=== PATIENT | female | born 1985 | race Caucasian/White ===

== ENCOUNTER 2016-11-10 12:25 | Inpatient (IN) | payer OTHER ==
[~2016-11-10] VITALS: Ht 147.3 cm; Wt 59.9 kg
[2016-11-10 14:10] VITALS: BP 119/61; PULSE 88; RESP 20
[2016-11-10 14:31] VITALS: Ht 147.3 cm; Wt 59.9 kg
--- NOTE | 2016-11-10 16:52 | HP ---
Date/Time of Note Date/Time of Note DATE: 11/10/16 TIME: 16:49 Assessment/Plan VTE Prophylaxis VTE Prophylaxis Intervention: SCD's Lines/Catheters IV C[facility]ter Type (from [facility]): Saline Lock Assessment/Plan Chief Complaint/Hosp Course Pelvic pain, elevated CA-125, Pelvic mass Problems: Assessment/Plan Further workup and surgey- see above HPI/ROS Admit Date/Time Admit Date/Time Nov 10, 2016 at 13:52 Hx of Present Illness Hoang Baron M.D. [facility] History and Physical Examination Aida Jessica Date:Nov 10, 2016 :1985 Age: 31 Physicians: Retail Leader Resource Analyst Oncologist Referring MD: History of the Present Illness: A 31 year old female with a gradually increasing pelvic mass. The mass is complex and 12 cm with some ascites and a CA-125 of 250. She notes 1 year increasing girth and pain with intercourse and dysmenorrhea. Medical history/ROS: all other systems unremarkable. Surgical history: no significant abdominal procedures. Medications: gardisil Allergies: No active allergies recorded Family Hx: non-contributary Social HX: non-contributary ROS: as above Colonoscopy Physical Examination General: Alert. HEENT: Pupils are equal, round, reactive to light and accommodation. Neck: Supple with no masses of lymphadenopathy. Breast: Deferred due to recent examination and responsibility of primary care physician. Chest: Clear to auscultation Heart: Normal rhythm with no murmur. Abdomen: Moderately tender, possible ascites nor organomeglay. Pelvic exam: large central mass no cul-de-sac nodularity noted Rectal: confirmatory with pelvic exam. Neurological: Grossly intact Assessment: Pelvic-abdominal mass Plan: Additional HE4, germ cell markers and CT and then determine open vs Scope USO, possible staging , possible TAHBSO with cytoreduction. All risks and benefits of this procedure have been discussed in detail with the patient, as well as alternative treatment strategies and their implications. The patient is aware that there is some possibility of a blood transfusion and its associated risks and benefits. She wishes to proceed and gives her informed consent. Hoang Baron M.D. PMH/Family/Social Social History Smoking Status: Former smoker Exam/Review of Systems Vital Signs Vitals Vital Signs Date Time Temp Pulse Resp B/P Pulse Ox O2 Delivery O2 Flow Rate FiO2 11/10/16 14:10 98.2 88 20 119/61 95 Room Air Medications Medications Current Medications Potassium Chloride/Dextrose/ Sod Cl (D5-1/2ns + KCl 20 Meq) 1,000 ml @ 75 mls/ hr [id number] IV ; Start 11/10/16 at 16:37; Status UNV Ondansetron HCl (Zofran Inj) 4 mg Q6H PRN IV NAUSEA AND/OR VOMITING; Start at 17:00; Status UNV Acetaminophen (Tylenol Tab) 650 mg Q6H PRN PO PAIN LEVEL 1-3 OR FEVER; Start 11/10/16 at 17:00; Status UNV Acetaminophen (Tylenol Supp) 650 mg Q6H PRN [place] PAIN LEVEL 1-3 OR FEVER; Start 11/10/16 at 17:00; Status UNV Oxycodone/ Acetaminophen (Percocet (5/ 325)) 1 tab Q6H PRN PO MODERATE PAIN LEVEL 4-6; Start 11/10/16 at 17:00; Status UNV Morphine Sulfate (morphine) 2 mg Q4H PRN IV SEVERE PAIN LEVEL 7-10; Start at 17:00; Status UNV Docusate Sodium (Colace) 100 mg Q12H PRN PO CONSTIPATION; Start 11/10/16 at 17 :00; Status UNV Bisacodyl (Dulcolax Supp) 10 mg DAILY PRN [place] CONSTIPATION; Start 11/10/16 at 17:00; Status UNV Zolpidem Tartrate (Ambien) 5 mg QHS PRN PO SLEEP; Start 11/10/16 at 17:00; Status UNV Pantoprazole (Protonix Tab) 40 mg DAILY@06 PO ; Start 11/11/16 at 06:00; Status UNV HOANG BARON MD Nov 10, 2016 16:52
[2016-11-10] MEDS ORDERED: ZOLPIDEM 5 MG TAB PO PRN (17:00)
[2016-11-10] MEDS ORDERED: BISACODYL 10 MG SUPP PR PRN (17:00)
[2016-11-10] MEDS ORDERED: DOCUSATE SODIUM 100 MG CAP PO PRN (17:00)
[2016-11-10] MEDS ORDERED: ONDANSETRON 4 MG INJ IV PRN (17:00)
[2016-11-10] MEDS ORDERED: morphine 2 MG INJ IV PRN (17:00)
[2016-11-10] MEDS ORDERED: ACETAMINOPHEN 650 MG SUPP PR PRN (17:00)
[2016-11-10] MEDS ORDERED: NACL 0.9% 3 ML SYG IV SCH (17:00)
[2016-11-10] MEDS ORDERED: ACETAMINOPHEN 325 MG TAB PO PRN (17:00)
[2016-11-10] MEDS: D5W-0.45 NACL + KCL 20 MEQ 1,000 ML IV SCH (17:16)
[2016-11-10 19:12] LABS: BASOPHILS % 0.3 % (0.0-2.0); EOSINOPHILS # 0.1 10^3/ul (0.0-0.5); EOSINOPHILS % 1.2 % (0.0-7.0); HEMATOCRIT 38.4 % (37.0-47.0); HEMOGLOBIN 13.1 g/dl (12.0-16.0); LYMPHOCYTES # 2.1 10^3/ul (0.8-2.9); LYMPHOCYTES % 23.1 % (15.0-51.0); MEAN CORPUSCULAR HEMOGLOBIN 30.5 pg (29.0-33.0); MEAN CORPUSCULAR HGB CONC 34.2 g/dl (32.0-37.0); MEAN CORPUSCULAR VOLUME 89.1 fl (82.0-101.0); MEAN PLATELET VOLUME 8.8 fl (7.4-10.4); MONOCYTE # 0.4 10^3/ul (0.3-0.9); MONOCYTES % 4.2 % (0.0-11.0); NEUTROPHIL # 6.4 10^3/ul (1.6-7.5); NEUTROPHILS % 71.2 % (39.0-77.0); PLATELET COUNT 278 10^3/UL (140-440); RED BLOOD COUNT 4.31 10^6/ul (4.20-5.40); RED CELL DISTRIBUTION WIDTH 12.9 % (11.5-14.5); UNCORRECTED WBC 8.9 10^3/ul (4.8-10.8); WHITE BLOOD COUNT 8.9 10^3/ul (4.8-10.8)
[2016-11-10 19:15] LABS: CONDITION 1
[2016-11-10 19:21] LABS: ALBUMIN 4.2 g/dl (3.3-4.9)
[2016-11-10 19:22] LABS: POTASSIUM 3.6 mmol/L (3.5-5.1)
[2016-11-10 19:23] LABS: INR 1.02; PROTIME 13.4 Sec (12.2-14.2)
[2016-11-10 19:24] LABS: ALBUMIN/GLOBULIN RATIO 1.1; BILIRUBIN,INDIRECT 0.2 mg/dl (0-1.1); BILIRUBIN,TOTAL 0.2 mg/dl (0.2-1.3); CREATININE 0.53 mg/dl (0.44-1.00)
[2016-11-10 19:25] LABS: CALCIUM 8.6 mg/dl (8.4-10.2)
[2016-11-10] MEDS ORDERED: IOHEXOL 300MG/ML 150 ML BTL ONE (19:53)
[2016-11-10] MEDS ORDERED: SOD CHLORIDE 0.9% 100 ML ONE (19:53)
[2016-11-10 20:00] VITALS: BP 116/72; PULSE 94; RESP 18
--- NOTE | 2016-11-10 20:44 | RADRPT ---
PROCEDURE: CT abdomen and pelvis with contrast. CLINICAL INDICATION: Pelvic mass. TECHNIQUE: CT scan of the abdomen and pelvis with contrast was performed after the uneventful intr avenous administration of 90 cc of Omnipaque-300. Coronal and sagittal reformatted images were obtai kate from the axial source images. Images were reviewed on a high-resolution PACS workstation. The to lo exam CTDI equals 9.26 mGy and the total exam DLP equals 486.33 mGy-cm. COMPARISON: None available. FINDINGS: The visualized lung bases are clear. The visualized heart is unremarkable. The liver is normal in size and density with no focal hepatic lesion identified. There is no intra or extra-hepatic biliary ductal dilatation. The gallbladder, spleen, pancreas, and adrenal glands ar e unremarkable. There are no renal masses or hydronephrosis. There is no bowel wall thickening or evidence of obstruction. The appendix is in the right lower deandre drant, and is unremarkable. There is abnormal soft tissue density intermixed with foci of calcification, most pronounced in the lower abdomen and pelvis, with additional scattered areas within the ventral abdomen, consistent wit h peritoneal carcinomatosis. There is a pljkvfxi-xm-nwmzb volume of ascites, likely malignant in na ture. There is no free intraperitoneal air. There is no retroperitoneal adenopathy. There is a 1.5 cm left ovarian corpus luteal cyst. The uterus and adnexa are otherwise unremarkable. The urinary bladder is decompressed, and unremarkable. The aorta is nonaneurysmal. There are no concerning osseous lesio ns. IMPRESSION: 1. Peritoneal carcinomatosis, most pronounced within the lower abdomen and pelvis from an uncertain primary. 2. Ctidtnsf-rz-kcpcp volume of ascites, likely malignant in nature. 3. Benign left ovarian corpus luteal cyst. RPTAT: HLBP .Patrick Funk MD, MD Date Time Electronically viewed and signed by .Patrick Funk MD, MD on 11/10/2016 20:44 .P/
--- NOTE | 2016-11-10 21:37 | HP ---
DATE OF ADMISSION: 11/10/2016 CYTOGENETIC TECHNICIAN: SAMPLE CARD MAKER. CHIEF COMPLAINT: Abdominal pain, abdominal distention. HISTORY OF PRESENT ILLNESS: This is a 31-year-old female with no significant past medical history w ho has been having abdominal discomfort accompanied with abdominal distention and mild pain without any change in her appetite. No nausea, vomiting, diarrhea. No change in the color of stool. No ch bouchra in her menstruation or any other discomfort, who presented to [facility] to having this abdominal distention and bloating. The patient was seen at [facility] wit h a CT of the abdomen and pelvis which showed a large abdominal pelvic solid mass with 10 x 16 x 14 cm. The patient was seen by SAMPLE CARD MAKER and licensed occupational therapy assistant/oncologist at that facility and secondary to in surance purposes the patient has been transferred to [facility]. Prior to transfe r, the patient's condition was discussed by Dr. Baron, SAMPLE CARD MAKER and he accepted the patient as a co nsult. At this time, the patient denies having any chest pain, shortness of breath, nausea, vomitin g, diarrhea. No headache, dizziness, lightheadedness. No change in visual acuity, diplopia, photop hobia. Positive for abdominal discomfort. No abdominal pain. Positive for bloating. No change in the color of stool. No neck pain, no restricted range of motion in upper or lower extremities. No dysuria, hematuria, urgency, incontinence or any other discomfort. PAST MEDICAL AND SURGICAL HISTORY: None. SOCIAL HISTORY: Negative x3 for smoking, alcohol, illicit drugs. FAMILY HISTORY: Positive for history of ovarian cyst. No history of cancer. No history of coronar y artery disease. REVIEW OF SYSTEMS: As above per HPI, otherwise 12 point review of systems has been found to be nega tive. PHYSICAL EXAMINATION: VITAL SIGNS: Temperature 98.2, pulse 88, respirations 20, blood pressure 119/61, satting 95% on tam m air. GENERAL APPEARANCE: The patient is lying in bed comfortably without any acute distress. She is satcy ke, alert, oriented. She is able to answer my questions properly. EYES AND EARS, NOSE, THROAT: Conjunctivae and lids are normal. Pupils are normal. Extraocular nor mal. Hearing grossly normal. Lips are normal. Oral mucosa moist. NECK: Supple. Trachea is midline. No lymphadenopathy. RESPIRATORY: Effort is normal. Clear to auscultate bilaterally. CARDIOVASCULAR: Normal S1, S2. Regular rhythm and rate. No murmur, no bruits, no edema. Peripher al pulses, radial pulses palpable. Cap refill is normal. CHEST: Normal expansion of thorax during inspiration. GASTROINTESTINAL: Abdomen is soft, nontender. Bowel sound is present. Abdomen is mildly distended in the lower region. No guarding, no rebound. GENITOURINARY: Deferred. MUSCULOSKELETAL: Upper and lower extremities within normal limits. Full range of motion, strength 5/5 in both upper and lower extremities. NEUROLOGIC: Cranial nerves II-XII are grossly intact. PSYCHIATRIC: Normal judgment and insight. Alert and oriented x3. Mood and affect is normal. LABORATORY WORK AND IMAGING: CT abdomen and pelvis showed a large abdominopelvic mass 10 x 16 x 14 cm, numerous small calcifications are seen within the mass. Sodium 141, potassium 3.9, chloride 105 , bicarb 27, BUN 9, creatinine 0.47, glucose 112. LFTs all within normal limits. CA 19-9 26, CA-12 5 250, CA-15 ____, ____ 0.5. ASSESSMENT AND PLAN: 1. Large ovarian mass. SAMPLE CARD MAKER has been consulted. We will obtain another CT of abdomen and pelvis with contrast as per ____ recommendation. Follow up HCG, ovarian cancer monitoring, LDH. Follow u p SAMPLE CARD MAKER recommendations. 2. Deep venous thrombosis prophylaxis, on SCD. 3. Gastrointestinal prophylaxis, on Protonix. We will continue to monitor the patient closely. Further recommendation, management and treatment a s per clinical course. Total amount of time was spent for evaluation of the patient and admission workup 45 minutes. Dictated By: MORALES PEREIRA MD PN/NTS Conf#: [id number] DID#: [id number] CC: MORALES PEREIRA MD; MATT BARON MD;*EndCC*
[2016-11-10] MEDS: OXYCODONE/ACETAMINOPHEN (5/325) TAB PO PRN (23:27)
[2016-11-11] MEDS: PANTOPRAZOLE (EC) 40 MG TAB PO SCH (05:30)
[2016-11-11 05:57] LABS: BASOPHILS % 0.5 % (0.0-2.0); EOSINOPHILS # 0.2 10^3/ul (0.0-0.5); EOSINOPHILS % 2.4 % (0.0-7.0); HEMATOCRIT 34.2 % (37.0-47.0); HEMOGLOBIN 11.9 g/dl (12.0-16.0); LYMPHOCYTES # 2.5 10^3/ul (0.8-2.9); LYMPHOCYTES % 32.1 % (15.0-51.0); MEAN CORPUSCULAR HGB CONC 34.7 g/dl (32.0-37.0); MEAN CORPUSCULAR VOLUME 89.5 fl (82.0-101.0); MONOCYTE # 0.5 10^3/ul (0.3-0.9); MONOCYTES % 6.1 % (0.0-11.0); NEUTROPHIL # 4.5 10^3/ul (1.6-7.5); NEUTROPHILS % 58.9 % (39.0-77.0); PLATELET COUNT 233 10^3/UL (140-440); RED BLOOD COUNT 3.82 10^6/ul (4.20-5.40); RED CELL DISTRIBUTION WIDTH 12.9 % (11.5-14.5); UNCORRECTED WBC 7.7 10^3/ul (4.8-10.8); WHITE BLOOD COUNT 7.7 10^3/ul (4.8-10.8)
[2016-11-11] MEDS: D5W-0.45 NACL + KCL 20 MEQ 1,000 ML IV SCH ×3 (05:57→19:04)
[2016-11-11 06:01] LABS: ALBUMIN 3.6 g/dl (3.3-4.9); POTASSIUM 4.1 mmol/L (3.5-5.1)
[2016-11-11 06:03] LABS: CREATININE 0.53 mg/dl (0.44-1.00)
[2016-11-11 06:04] LABS: ALBUMIN/GLOBULIN RATIO 1.05; BILIRUBIN,INDIRECT 0.2 mg/dl (0-1.1); BILIRUBIN,TOTAL 0.2 mg/dl (0.2-1.3); CALCIUM 8.6 mg/dl (8.4-10.2)
[2016-11-11 06:05] LABS: MAGNESIUM 2.2 mg/dl (1.7-2.5)
[2016-11-11 06:53] LABS: CONDITION 1
[2016-11-11 08:00] VITALS: BP 102/57; PULSE 77; RESP 18
--- NOTE | 2016-11-11 09:43 | PN ---
Date/Time of Note Date/Time of Note DATE: 11/11/16 TIME: 09:39 Assessment/Plan VTE Prophylaxis VTE Prophylaxis Intervention: SCD's Lines/Catheters IV C[facility]ter Type (from [facility] Saline Lock Urinary Cath still in place: No Assessment/Plan Chief Complaint/Hosp Course ASSESSMENT AND PLAN: 1. Large ovarian mass. BENCH EXAMINER has been consulted. Follow up BENCH EXAMINER recommendations. 2. Peritoneal carcinomatosis, most pronounced within the lower abdomen and pelvis from an uncertain primary with Vpyzymcp-nv-roesi volume of ascites, likely malignant in nature. PANEL GLUER surgeon has been consulted, plan for surgical intervention this upcoming Sunday or Sunday depending on OR availability Will consult bath attendant oncologist postoperatively when tissue is available 3. Deep venous thrombosis prophylaxis, on SCD. 4. Gastrointestinal prophylaxis, on Protonix. We will continue to monitor the patient closely. Further recommendation, management and treatment as per clinical course. Problems: Subjective 24 Hr Interval Summary Free Text/Dictation Patient complains of having abdominal discomfort Had trouble sleeping last night No nausea vomiting or diarrhea Exam/Review of Systems Vital Signs Vitals Vital Signs Date Time Temp Pulse Resp B/P Pulse Ox O2 Delivery O2 Flow Rate FiO2 11/11/16 08:00 98.0 77 18 102/57 98 Room Air Intake and Output 11/10/16 11/10/16 11/11/16 15:00 23:00 07:00 Intake Total 1200 ml 340 ml Output Total 500 ml Balance 1200 ml -160 ml Exam General: The patient is well-developed, Not in acute distress. HEENT: Atraumatic, normocephalic. The pupils are equal and round . Neck: Supple with full range of motion. Chest: Normal expansion of the thorax during inspiration Lungs: Clear to auscultation bilaterally Heart: Normal S1-S2, Regular rhythm and rate. Abdomen: Soft , nontender, nondistended , bowel sounds are present. Extremities: Normal to inspection, no edema no cyanosis Neurologic: Normal mental status,The patient is awake, alert and oriented . Results Result Diagram: 11/11/16 0458 11/11/16 0458 Results 24 hrs Laboratory Tests Test 11/10/16 16:30 11/10/16 18:45 11/11/16 04:58 Alpha Fetoprotein 2.05 Serum HCG, Qualitative NEGATIVE Alanine Aminotransferase (ALT/SGPT) 47 52 Albumin 4.2 3.6 Albumin/Globulin Ratio 1.10 1.05 Alkaline Phosphatase 66 67 Anion Gap 18 H 17 H Aspartate Amino Transf (AST/SGOT) 39 33 Basophils # 0.0 0.0 Basophils % 0.3 0.5 Blood Urea Nitrogen 15 17 Calcium Level 8.6 8.6 Carbon Dioxide Level 27 26 Chloride Level 102 105 Creatinine 0.53 0.53 Direct Bilirubin 0.00 0.00 Eosinophils # 0.1 0.2 Eosinophils % 1.2 2.4 Globulin 3.80 H 3.40 H Glucose Level 90 92 Hematocrit 38.4 34.2 L Hemoglobin 13.1 11.9 L INR International Normalized Ratio 1.02 Indirect Bilirubin 0.2 0.2 Lactate Dehydrogenase 495 Lymphocytes # 2.1 2.5 Lymphocytes % 23.1 32.1 Mean Corpuscular Hemoglobin 30.5 31.0 Mean Corpuscular Hemoglobin Concent 34.2 34.7 Mean Corpuscular Volume 89.1 89.5 Mean Platelet Volume 8.8 9.0 Monocytes # 0.4 0.5 Monocytes % 4.2 6.1 Neutrophils # 6.4 4.5 Neutrophils % 71.2 58.9 Nucleated Red Blood Cells # 0.0 0.0 Nucleated Red Blood Cells % 0.0 0.0 Platelet Count 278 233 Potassium Level 3.6 4.1 Prothrombin Time 13.4 Prothrombin Time Ratio 1.0 Red Blood Count 4.31 3.82 L Red Cell Distribution Width 12.9 12.9 Sodium Level 143 144 Total Bilirubin 0.2 0.2 Total Protein 8.0 7.0 # White Blood Count 8.9 7.7 Magnesium Level 2.2 Medications Medications Current Medications Potassium Chloride/Dextrose/ Sod Cl (D5-1/2ns + KCl 20 Meq) 1,000 ml @ 75 mls/ hr [id number] IV Last administered on 11/10/16at 17:16; Admin Dose 75 MLS/HR; Start 11/10/16 at 16:37 Ondansetron HCl (Zofran Inj) 4 mg Q6H PRN IV NAUSEA AND/OR VOMITING; Start at 17:00 Acetaminophen (Tylenol Tab) 650 mg Q6H PRN PO PAIN LEVEL 1-3 OR FEVER; Start 11/10/16 at 17:00 Acetaminophen (Tylenol Supp) 650 mg Q6H PRN [place] PAIN LEVEL 1-3 OR FEVER; Start 11/10/16 at 17:00 Oxycodone/ Acetaminophen (Percocet (5/ 325)) 1 tab Q6H PRN PO MODERATE PAIN LEVEL 4-6 Last administered on 11/10/16at 23:27; Admin Dose 1 TAB; Start at 17:00 Morphine Sulfate (morphine) 2 mg Q4H PRN IV SEVERE PAIN LEVEL 7-10; Start at 17:00 Docusate Sodium (Colace) 100 mg Q12H PRN PO CONSTIPATION; Start 11/10/16 at 17 :00 Bisacodyl (Dulcolax Supp) 10 mg DAILY PRN [place] CONSTIPATION; Start 11/10/16 at 17:00 Zolpidem Tartrate (Ambien) 5 mg QHS PRN PO SLEEP; Start 11/10/16 at 17:00 Pantoprazole (Protonix Tab) 40 mg DAILY@06 PO Last administered on 11/11/16at 05:30; Admin Dose 40 MG; Start 11/11/16 at 06:00 MORALES PEREIRA MD Nov 11, 2016 09:43
--- NOTE | 2016-11-11 12:43 | PN ---
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 Given that 20 % require adjacent colon resection with en-bloc low anastomosis will proceed with bowel prep and explained why. Under remote chance that issue is only endometriosis will only do USO and under low probability that stage I or IC ovarian cancer after being informed of all options with risks and benefits patient elects hysterectomy with BSO rather than fertility preservation. If IIIC disease and miliary disease intraperitoneal chemotherapy is the standard of practice; discussed chemotherapy and will further elaborate tomorrow. Will begin bowel prep today and anticipate surgery Sunday. Will order doppler as there is a documented risk of subclinical DVT. Subjective 24 Hr Interval Summary Free Text/Dictation S- Slightly increased pain, no N/V O- resp- clear cvs- NSR abd- Mod distension and some pain ext NT no edema A- probable ovarian vs peritoneal Cancer per CT with metastatic disease P- Discusses treatment options with risks and benefits in detail. Given that 20 % require adjacent colon resection with en-bloc low anastomosis will proceed with bowel prep and explained why. Under remote chance that issue is only endometriosis will only do USO and under low probability that stage I or IC ovarian cancer after being informed of all options with risks and benefits patient elects hysterectomy with BSO rather than fertility preservation. If IIIC disease and miliary disease intraperitoneal chemotherapy is the standard of practice; discussed chemotherapy and will further elaborate tomorrow. Will begin bowel prep today and anticipate surgery Sunday. Will order doppler as there is a documented risk of subclinical DVT. Exam/Review of Systems Vital Signs Vitals Vital Signs Date Time Temp Pulse Resp B/P Pulse Ox O2 Delivery O2 Flow Rate FiO2 11/11/16 08:00 98.0 77 18 102/57 98 Room Air Intake and Output 11/10/16 11/10/16 11/11/16 15:00 23:00 07:00 Intake Total 1200 ml 340 ml Output Total 500 ml Balance 1200 ml -160 ml Results Result Diagram: 11/11/16 0458 11/11/16 0458 Results 24 hrs Laboratory Tests Test 11/10/16 16:30 11/10/16 18:45 11/11/16 04:58 Alpha Fetoprotein 2.05 Serum HCG, Qualitative NEGATIVE Alanine Aminotransferase (ALT/SGPT) 47 52 Albumin 4.2 3.6 Albumin/Globulin Ratio 1.10 1.05 Alkaline Phosphatase 66 67 Anion Gap 18 H 17 H Aspartate Amino Transf (AST/SGOT) 39 33 Basophils # 0.0 0.0 Basophils % 0.3 0.5 Blood Urea Nitrogen 15 17 Calcium Level 8.6 8.6 Carbon Dioxide Level 27 26 Chloride Level 102 105 Creatinine 0.53 0.53 Direct Bilirubin 0.00 0.00 Eosinophils # 0.1 0.2 Eosinophils % 1.2 2.4 Globulin 3.80 H 3.40 H Glucose Level 90 92 Hematocrit 38.4 34.2 L Hemoglobin 13.1 11.9 L INR International Normalized Ratio 1.02 Indirect Bilirubin 0.2 0.2 Lactate Dehydrogenase 495 Lymphocytes # 2.1 2.5 Lymphocytes % 23.1 32.1 Mean Corpuscular Hemoglobin 30.5 31.0 Mean Corpuscular Hemoglobin Concent 34.2 34.7 Mean Corpuscular Volume 89.1 89.5 Mean Platelet Volume 8.8 9.0 Monocytes # 0.4 0.5 Monocytes % 4.2 6.1 Neutrophils # 6.4 4.5 Neutrophils % 71.2 58.9 Nucleated Red Blood Cells # 0.0 0.0 Nucleated Red Blood Cells % 0.0 0.0 Platelet Count 278 233 Potassium Level 3.6 4.1 Prothrombin Time 13.4 Prothrombin Time Ratio 1.0 Red Blood Count 4.31 3.82 L Red Cell Distribution Width 12.9 12.9 Sodium Level 143 144 Total Bilirubin 0.2 0.2 Total Protein 8.0 7.0 # White Blood Count 8.9 7.7 Magnesium Level 2.2 Medications Medications Current Medications Potassium Chloride/Dextrose/ Sod Cl (D5-1/2ns + KCl 20 Meq) 1,000 ml @ 75 mls/ hr [id number] IV Last administered on 11/11/16at 10:23; Admin Dose 75 MLS/HR; Start 11/10/16 at 16:37 Ondansetron HCl (Zofran Inj) 4 mg Q6H PRN IV NAUSEA AND/OR VOMITING; Start at 17:00 Acetaminophen (Tylenol Tab) 650 mg Q6H PRN PO PAIN LEVEL 1-3 OR FEVER; Start 11/10/16 at 17:00 Acetaminophen (Tylenol Supp) 650 mg Q6H PRN [place] PAIN LEVEL 1-3 OR FEVER; Start 11/10/16 at 17:00 Oxycodone/ Acetaminophen (Percocet (5/ 325)) 1 tab Q6H PRN PO MODERATE PAIN LEVEL 4-6 Last administered on 11/10/16at 23:27; Admin Dose 1 TAB; Start at 17:00 Morphine Sulfate (morphine) 2 mg Q4H PRN IV SEVERE PAIN LEVEL 7-10; Start at 17:00 Docusate Sodium (Colace) 100 mg Q12H PRN PO CONSTIPATION; Start 11/10/16 at 17 :00 Bisacodyl (Dulcolax Supp) 10 mg DAILY PRN [place] CONSTIPATION; Start 11/10/16 at 17:00 Zolpidem Tartrate (Ambien) 5 mg QHS PRN PO SLEEP; Start 11/10/16 at 17:00 Pantoprazole (Protonix Tab) 40 mg DAILY@06 PO Last administered on 11/11/16at 05:30; Admin Dose 40 MG; Start 11/11/16 at 06:00 MATT BARON MD Nov 11, 2016 12:43
[2016-11-11] MEDS ORDERED: PEG/ELECTROLYTES 4L BTL PO SCH (14:00)
--- NOTE | 2016-11-11 16:15 | RADRPT ---
PROCEDURE: US Lower extremity Venous. CLINICAL INDICATION: Lower extremity pain and swelling TECHNIQUE: Multiple sonographic images of the bilateral lower extremity deep venous system was obt ained utilizing grayscale, color-flow, compressive sonography and doppler imaging with augmentation. The images were reviewed on a PACS workstation. COMPARISON: None. FINDINGS: There is normal compressibility and flow within the bilateral common femoral, superficial femoral an d popliteal veins. Flow is seen in the posterior tibial and peroneal veins. IMPRESSION: No sonographic evidence for deep venous thrombosis. RPTAT: AA .Nathaniel Tai MD, MD Date Time Electronically viewed and signed by .Nathaniel Tai MD, MD on 11/11/2016 16:15 .P/
[2016-11-11 20:00] VITALS: BP 106/56; PULSE 84; RESP 18
[2016-11-12 05:49] LABS: BASOPHILS % 0.5 % (0.0-2.0); EOSINOPHILS # 0.1 10^3/ul (0.0-0.5); EOSINOPHILS % 1.7 % (0.0-7.0); HEMATOCRIT 34.9 % (37.0-47.0); HEMOGLOBIN 12.1 g/dl (12.0-16.0); LYMPHOCYTES # 2.3 10^3/ul (0.8-2.9); LYMPHOCYTES % 30.8 % (15.0-51.0); MEAN CORPUSCULAR HEMOGLOBIN 31.1 pg (29.0-33.0); MEAN CORPUSCULAR HGB CONC 34.7 g/dl (32.0-37.0); MEAN CORPUSCULAR VOLUME 89.8 fl (82.0-101.0); MEAN PLATELET VOLUME 9.2 fl (7.4-10.4); MONOCYTE # 0.4 10^3/ul (0.3-0.9); MONOCYTES % 5.4 % (0.0-11.0); NEUTROPHIL # 4.5 10^3/ul (1.6-7.5); NEUTROPHILS % 61.6 % (39.0-77.0); PLATELET COUNT 236 10^3/UL (140-440); RED BLOOD COUNT 3.89 10^6/ul (4.20-5.40); RED CELL DISTRIBUTION WIDTH 12.8 % (11.5-14.5); UNCORRECTED WBC 7.3 10^3/ul (4.8-10.8); WHITE BLOOD COUNT 7.3 10^3/ul (4.8-10.8)
[2016-11-12 05:51] LABS: POTASSIUM 3.9 mmol/L (3.5-5.1)
[2016-11-12 05:54] LABS: CALCIUM 8.7 mg/dl (8.4-10.2); CREATININE 0.48 mg/dl (0.44-1.00)
[2016-11-12 05:59] LABS: CONDITION 1
[2016-11-12] MEDS: PANTOPRAZOLE (EC) 40 MG TAB PO SCH (06:46)
[2016-11-12 08:00] VITALS: BP 101/56; PULSE 80
[2016-11-12] MEDS: D5W-0.45 NACL + KCL 20 MEQ 1,000 ML IV SCH ×2 (08:33→21:57)
--- NOTE | 2016-11-12 10:46 | PN ---
Date/Time of Note Date/Time of Note DATE: 11/12/16 TIME: 10:45 Assessment/Plan VTE Prophylaxis VTE Prophylaxis Intervention: SCD's Lines/Catheters IV [facility]from [facility] Saline Lock Urinary Cath still in place: No Assessment/Plan Chief Complaint/Hosp Course ASSESSMENT AND PLAN: 1. Large ovarian mass. SPEED BELT SANDER TENDER has been consulted. Follow up SPEED BELT SANDER TENDER recommendations. 2. Peritoneal carcinomatosis, most pronounced within the lower abdomen and pelvis from an uncertain primary with [id number] volume of ascites, likely malignant in nature. IT SALES REPRESENTATIVE surgeon has been consulted, plan for surgical intervention this upcoming Sunday or Sunday depending on OR availability Will consult lining machine tender oncologist postoperatively when tissue is available 3. Deep venous thrombosis prophylaxis, on SCD. 4. Gastrointestinal prophylaxis, on Protonix. We will continue to monitor the patient closely. Further recommendation, management and treatment as per clinical course. Problems: Subjective 24 Hr Interval Summary Free Text/Dictation Patient denies of any chest pain or shortness of breath Minimal abdominal discomfort Positive bowel movement Exam/Review of Systems Vital Signs Vitals Vital Signs Date Time Temp Pulse Resp B/P Pulse Ox O2 Delivery O2 Flow Rate FiO2 11/12/16 08:00 98.7 80 101/56 98 Room Air 11/11/16 20:00 18 Intake and Output 11/11/16 11/11/16 11/12/16 15:00 23:00 07:00 Intake Total 1000 ml 920 ml Balance 1000 ml 920 ml Exam General: The patient is well-developed, Not in acute distress. HEENT: Atraumatic, normocephalic. The pupils are equal and round . Neck: Supple with full range of motion. Chest: Normal expansion of the thorax during inspiration Lungs: Clear to auscultation bilaterally Heart: Normal S1-S2, Regular rhythm and rate. Abdomen: Soft , nontender, nondistended , bowel sounds are present. Extremities: Normal to inspection, no edema no cyanosis Neurologic: Normal mental status,The patient is awake, alert and oriented . Results Result Diagram: 11/12/16 0430 11/12/16 0430 Results 24 hrs Laboratory Tests Test 11/12/16 03:30 11/12/16 04:30 Stool Occult Blood NEGATIVE Anion Gap 16 Basophils # 0.0 Basophils % 0.5 Blood Urea Nitrogen 8 # Calcium Level 8.7 Carbon Dioxide Level 27 Chloride Level 105 Creatinine 0.48 Eosinophils # 0.1 Eosinophils % 1.7 Glucose Level 83 Hematocrit 34.9 L Hemoglobin 12.1 Lymphocytes # 2.3 Lymphocytes % 30.8 Mean Corpuscular Hemoglobin 31.1 Mean Corpuscular Hemoglobin Concent 34.7 Mean Corpuscular Volume 89.8 Mean Platelet Volume 9.2 Monocytes # 0.4 Monocytes % 5.4 Neutrophils # 4.5 Neutrophils % 61.6 Nucleated Red Blood Cells # 0.0 Nucleated Red Blood Cells % 0.0 Platelet Count 236 Potassium Level 3.9 Red Blood Count 3.89 L Red Cell Distribution Width 12.8 Sodium Level 144 White Blood Count 7.3 Medications Medications Current Medications Potassium Chloride/Dextrose/ Sod Cl (D5-1/2ns + KCl 20 Meq) 1,000 ml @ 75 mls/ hr [id number] IV Last administered on 11/11/16at 10:23; Admin Dose 75 MLS/HR; Start 11/10/16 at 16:37 Ondansetron HCl (Zofran Inj) 4 mg Q6H PRN IV NAUSEA AND/OR VOMITING; Start at 17:00 Acetaminophen (Tylenol Tab) 650 mg Q6H PRN PO PAIN LEVEL 1-3 OR FEVER; Start 11/10/16 at 17:00 Acetaminophen (Tylenol Supp) 650 mg Q6H PRN IN PAIN LEVEL 1-3 OR FEVER; Start 11/10/16 at 17:00 Oxycodone/ Acetaminophen (Percocet (5/ 325)) 1 tab Q6H PRN PO MODERATE PAIN LEVEL 4-6 Last administered on 11/10/16at 23:27; Admin Dose 1 TAB; Start at 17:00 Morphine Sulfate (morphine) 2 mg Q4H PRN IV SEVERE PAIN LEVEL 7-10; Start at 17:00 Docusate Sodium (Colace) 100 mg Q12H PRN PO CONSTIPATION; Start 11/10/16 at 17 :00 Bisacodyl (Dulcolax Supp) 10 mg DAILY PRN IN CONSTIPATION; Start 11/10/16 at 17:00 Zolpidem Tartrate (Ambien) 5 mg QHS PRN PO SLEEP; Start 11/10/16 at 17:00 Pantoprazole (Protonix Tab) 40 mg DAILY@06 PO Last administered on 11/12/16at 06:46; Admin Dose 40 MG; Start 11/11/16 at 06:00 MORALES PEREIRA MD Nov 12, 2016 10:45
--- NOTE | 2016-11-12 11:42 | RADRPT ---
PROCEDURE: XR Chest. CLINICAL INDICATION: Preoperative. Abdomen pain. TECHNIQUE: Single frontal view. COMPARISON: None. FINDINGS: The lungs are clear. The heart size is normal. There is no pleural effusion. There is no pneumothorax. IMPRESSION: 1. Normal chest radiograph. RPTAT: QQ .Omar Austin MD, MD Date Time Electronically viewed and signed by .Omar Austin MD, on 11/12/2016 11:41 .R/
[2016-11-12 12:16] LABS: INR 1.06; PROTIME 13.8 Sec (12.2-14.2); PT RATIO 1.1
[2016-11-12 12:17] LABS: PARTIAL THROMBOPLASTIN TIME 30.2 Sec (25.0-35.0)
[2016-11-12] MEDS ORDERED: PEG/ELECTROLYTES 4L BTL PO ONE (14:00)
--- NOTE | 2016-11-12 18:47 | PN ---
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 Repeat discussion and i clinically stage I will do USO and staging as she decided she wishes fertility preservation if possible. Family present. Will continue bowel prep today and anticipate surgery Sunday. 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 Repeat discussion and i clinically stage I will do USO and staging as she decided she wishes fertility preservation if possible. Family present. Will continue bowel prep today and anticipate surgery Sunday. Exam/Review of Systems Vital Signs Vitals Vital Signs Date Time Temp Pulse Resp B/P Pulse Ox O2 Delivery O2 Flow Rate FiO2 11/12/16 08:00 98.7 80 101/56 98 Room Air 11/11/16 20:00 18 Intake and Output 11/11/16 11/11/16 11/12/16 15:00 23:00 07:00 Intake Total 1000 ml 920 ml Balance 1000 ml 920 ml Results Result Diagram: 11/12/16 0430 11/12/16 0430 Results 24 hrs Laboratory Tests Test 11/12/16 03:30 11/12/16 04:30 11/12/16 11:30 Stool Occult Blood NEGATIVE Anion Gap 16 Basophils # 0.0 Basophils % 0.5 Blood Urea Nitrogen 8 # Calcium Level 8.7 Carbon Dioxide Level 27 Chloride Level 105 Creatinine 0.48 Eosinophils # 0.1 Eosinophils % 1.7 Glucose Level 83 Hematocrit 34.9 L Hemoglobin 12.1 Lymphocytes # 2.3 Lymphocytes % 30.8 Mean Corpuscular Hemoglobin 31.1 Mean Corpuscular Hemoglobin Concent 34.7 Mean Corpuscular Volume 89.8 Mean Platelet Volume 9.2 Monocytes # 0.4 Monocytes % 5.4 Neutrophils # 4.5 Neutrophils % 61.6 Nucleated Red Blood Cells # 0.0 Nucleated Red Blood Cells % 0.0 Platelet Count 236 Potassium Level 3.9 Red Blood Count 3.89 L Red Cell Distribution Width 12.8 Sodium Level 144 White Blood Count 7.3 Activated Partial Thromboplast Time 30.2 INR International Normalized Ratio 1.06 Prothrombin Time 13.8 Prothrombin Time Ratio 1.1 Medications Medications Current Medications Potassium Chloride/Dextrose/ Sod Cl (D5-1/2ns + KCl 20 Meq) 1,000 ml @ 75 mls/ hr [id number] IV Last administered on 11/11/16at 10:23; Admin Dose 75 MLS/HR; Start 11/10/16 at 16:37 Ondansetron HCl (Zofran Inj) 4 mg Q6H PRN IV NAUSEA AND/OR VOMITING; Start at 17:00 Acetaminophen (Tylenol Tab) 650 mg Q6H PRN PO PAIN LEVEL 1-3 OR FEVER; Start 11/10/16 at 17:00 Acetaminophen (Tylenol Supp) 650 mg Q6H PRN [place] PAIN LEVEL 1-3 OR FEVER; Start 11/10/16 at 17:00 Oxycodone/ Acetaminophen (Percocet (5/ 325)) 1 tab Q6H PRN PO MODERATE PAIN LEVEL 4-6 Last administered on 11/10/16at 23:27; Admin Dose 1 TAB; Start at 17:00 Morphine Sulfate (morphine) 2 mg Q4H PRN IV SEVERE PAIN LEVEL 7-10; Start at 17:00 Docusate Sodium (Colace) 100 mg Q12H PRN PO CONSTIPATION; Start 11/10/16 at 17 :00 Bisacodyl (Dulcolax Supp) 10 mg DAILY PRN [place] CONSTIPATION; Start 11/10/16 at 17:00 Zolpidem Tartrate (Ambien) 5 mg QHS PRN PO SLEEP; Start 11/10/16 at 17:00 Pantoprazole (Protonix Tab) 40 mg DAILY@06 PO Last administered on 11/12/16at 06:46; Admin Dose 40 MG; Start 11/11/16 at 06:00 MATT BARON MD Nov 12, 2016 18:47
[2016-11-12] MEDS: OXYCODONE/ACETAMINOPHEN (5/325) TAB PO PRN (19:52)
[2016-11-12 20:00] VITALS: BP 105/64; PULSE 98; RESP 18
[2016-11-12] MEDS: CEFAZOLIN 1 GM/50 ML (PMX) 50 ML IVPB SCH (21:50)
[2016-11-12] MEDS: metroNIDAZOLE 500 MG/NS (PMX) 100 ML IVPB SCH (22:37)
[2016-11-13] VITALS (22 sets, daily range): BP systolic 92–119; BP diastolic 45–75; PULSE 96–110; RESP 16–24
[2016-11-13] MEDS: PANTOPRAZOLE (EC) 40 MG TAB PO SCH (05:17)
[2016-11-13 05:27] LABS: BASOPHILS % 0.5 % (0.0-2.0); CONDITION 1; EOSINOPHILS # 0.1 10^3/ul (0.0-0.5); EOSINOPHILS % 1.2 % (0.0-7.0); HEMATOCRIT 32.7 % (37.0-47.0); HEMOGLOBIN 11.4 g/dl (12.0-16.0); LYMPHOCYTES # 1.5 10^3/ul (0.8-2.9); LYMPHOCYTES % 23.9 % (15.0-51.0); MEAN CORPUSCULAR HEMOGLOBIN 31.1 pg (29.0-33.0); MEAN CORPUSCULAR HGB CONC 34.9 g/dl (32.0-37.0); MEAN CORPUSCULAR VOLUME 89.2 fl (82.0-101.0); MEAN PLATELET VOLUME 8.9 fl (7.4-10.4); MONOCYTE # 0.3 10^3/ul (0.3-0.9); MONOCYTES % 5.2 % (0.0-11.0); NEUTROPHIL # 4.5 10^3/ul (1.6-7.5); NEUTROPHILS % 69.2 % (39.0-77.0); PLATELET COUNT 217 10^3/UL (140-440); RED BLOOD COUNT 3.66 10^6/ul (4.20-5.40); UNCORRECTED WBC 6.4 10^3/ul (4.8-10.8); WHITE BLOOD COUNT 6.4 10^3/ul (4.8-10.8)
[2016-11-13 05:33] LABS: ALBUMIN 3.7 g/dl (3.3-4.9)
[2016-11-13 05:34] LABS: POTASSIUM 3.8 mmol/L (3.5-5.1)
[2016-11-13 05:36] LABS: BILIRUBIN,INDIRECT 0.3 mg/dl (0-1.1); BILIRUBIN,TOTAL 0.3 mg/dl (0.2-1.3); CREATININE 0.45 mg/dl (0.44-1.00); TOTAL PROTEIN 7.1 g/dl (6.1-8.1)
[2016-11-13 05:37] LABS: CALCIUM 8.6 mg/dl (8.4-10.2); MAGNESIUM 2.1 mg/dl (1.7-2.5)
[2016-11-13] MEDS: CEFAZOLIN 1 GM/50 ML (PMX) 50 ML IVPB SCH ×3 (05:47→21:58)
[2016-11-13] MEDS: metroNIDAZOLE 500 MG/NS (PMX) 100 ML IVPB SCH ×3 (06:17→21:56)
[2016-11-13] MEDS ORDERED: CEFAZOLIN 1 GM INJ ONE (07:00)
[2016-11-13] MEDS ORDERED: DIPHENHYDRAMINE 50 MG INJ IV PRN (08:00)
[2016-11-13] MEDS ORDERED: EPHEDrine SULFATE 50 MG/5 ML SYG IV PRN (08:00)
[2016-11-13] MEDS ORDERED: MEPERIDINE 25 MG INJ IV PRN (08:00)
[2016-11-13] MEDS ORDERED: KETOROLAC 30 MG INJ IV ONE (08:00)
[2016-11-13] MEDS ORDERED: hydrALAzine 20 MG INJ IV PRN (08:00)
[2016-11-13] MEDS ORDERED: HYDROmorphONE (0.2 MG/ML) 10ML SYG IV PRN ×2 (08:00)
[2016-11-13] MEDS ORDERED: MIDAZOLAM 1 MG/ML 2 ML INJ IV PRN (08:00)
[2016-11-13] MEDS ORDERED: ONDANSETRON 4 MG INJ IV PRN (08:00)
[2016-11-13] MEDS ORDERED: PROCHLORPERAZINE 10 MG INJ IV PRN (08:00)
[2016-11-13] MEDS ORDERED: ROCURONIUM 50 MG INJ ONE ×2 (08:16→10:18)
[2016-11-13] MEDS ORDERED: EPHEDrine SULFATE 50 MG/5 ML SYG ONE (08:16)
[2016-11-13] MEDS ORDERED: PROPOFOL 20 ML ONE (08:16)
[2016-11-13] MEDS ORDERED: DEXAMETHASONE 4 MG/ML 1 ML INJ ONE (08:17)
[2016-11-13] MEDS ORDERED: ONDANSETRON 4 MG INJ ONE (08:17)
[2016-11-13] MEDS ORDERED: morphine SULFATE/PF (10 MG/10 ML) INJ ONE (08:17)
[2016-11-13] MEDS ORDERED: MIDAZOLAM 1 MG/ML 2 ML INJ ONE (08:17)
[2016-11-13] MEDS ORDERED: LIDOCAINE 2% JELLY 5 ML ONE (08:25)
[2016-11-13] MEDS ORDERED: ESMOLOL 10 ML ONE (10:18)
[2016-11-13] MEDS ORDERED: PHENYLephrine (100 MCG/ML) 5ML SYG ONE (10:29)
[2016-11-13] MEDS ORDERED: ALBUMIN HUMAN 5% 250 ML ONE (11:02)
[2016-11-13] MEDS ORDERED: ROPIVACAINE 0.5 % 30 ML VIAL ONE (11:07)
[2016-11-13] MEDS ORDERED: FENTAnyl 50 MCG/ML VIAL ONE ×2 (11:42→12:45)
[2016-11-13] MEDS ORDERED: KETOROLAC 30 MG INJ ONE (11:42)
[2016-11-13] MEDS: FENTAnyl 50 MCG/ML VIAL IV PRN ×6 (12:46→13:17)
[2016-11-13] MEDS: HYDROmorphONE (0.2 MG/ML) 10ML SYG IV PRN ×5 (12:49→13:15)
--- NOTE | 2016-11-13 13:44 | RADRPT ---
PROCEDURE: XR Chest. CLINICAL INDICATION: Nasogastric tube placement TECHNIQUE: Chest AP portable. COMPARISON: No comparison available. FINDINGS: Nasogastric tube in the stomach. The mediastinal structures are unremarkable. The heart is normal in size and configuration. The pu lmonary vascularity is normal. The lung hernandez are unremarkable. No consolidation is identified. The pleural spaces are unremarkable. The axial skeleton is unremarkable. IMPRESSION: No active intrathoracic disease. RPTAT: HGDB .Naeem Royal MD, MD Date Time Electronically viewed and signed by .Naeem Royal MD, on 11/13/2016 13:44 .B/
--- NOTE | 2016-11-13 15:21 | PN ---
Date/Time of Note Date/Time of Note DATE: 11/13/16 TIME: 15:16 Assessment/Plan VTE Prophylaxis VTE Prophylaxis Intervention: SCD's Lines/Catheters IV [facility]from [facility] Peripheral IV Urinary Cath still in place: No Assessment/Plan Chief Complaint/Hosp Course ASSESSMENT AND PLAN: 1. Large ovarian mass. CLASS B DRIVER has been consulted. Status post BSO and sigmoid resection and anastomosis Follow TRANSPORT SPECIALIST oncology recommendations Continue postop care as per TRANSPORT SPECIALIST oncologist, pain medication, n.p.o., NG tube 2. Peritoneal carcinomatosis, most pronounced within the lower abdomen and pelvis from an uncertain primary with [id number] volume of ascites, likely malignant in nature. TRANSPORT SPECIALIST oncology consulted oncology work up postoperatively as per TRANSPORT SPECIALIST oncologist Follow-up pathology 3. Deep venous thrombosis prophylaxis, on SCD. 4. Gastrointestinal prophylaxis, on Protonix. We will continue to monitor the patient closely. Further recommendation, management and treatment as per clinical course. Problems: Subjective 24 Hr Interval Summary Free Text/Dictation Post op #0 Patient is status post BSO, sigmoid resection and anastomosis Patient is still under the effect of anesthesia Exam/Review of Systems Vital Signs Vitals Vital Signs Date Time Temp Pulse Resp B/P Pulse Ox O2 Delivery O2 Flow Rate FiO2 11/13/16 13:39 98.2 106 20 103/65 100 Room Air 11/13/16 12:38 2.0 Intake and Output 11/12/16 11/12/16 11/13/16 15:00 23:00 07:00 Intake Total 2000 ml 800 ml 850 ml Balance 2000 ml 800 ml 850 ml Exam General: The patient is under effective anesthesia although arousable, Not in acute distress. HEENT: Atraumatic, normocephalic. The pupils are equal and round . NG tube in place Neck: Supple Chest: Normal expansion of the thorax during inspiration Lungs: Clear to auscultation bilaterally Heart: Normal S1-S2, Regular rhythm and rate. Abdomen: Soft , nontender, nondistended , bowel sounds are hypoactive, surgical site is dry and clean. Extremities: Normal to inspection, no edema no cyanosis Neurologic: Groggy Results Result Diagram: 11/13/16 0450 11/13/16 0450 Results 24 hrs Laboratory Tests Test 11/13/16 04:50 Alanine Aminotransferase (ALT/SGPT) 41 Albumin 3.7 Alkaline Phosphatase 57 Anion Gap 15 Aspartate Amino Transf (AST/SGOT) 21 Basophils # 0.0 Basophils % 0.5 Blood Urea Nitrogen 9 Calcium Level 8.6 Carbon Dioxide Level 26 Chloride Level 107 Creatinine 0.45 Direct Bilirubin 0.00 Eosinophils # 0.1 Eosinophils % 1.2 Glucose Level 93 Hematocrit 32.7 L Hemoglobin 11.4 L Indirect Bilirubin 0.3 Lymphocytes # 1.5 Lymphocytes % 23.9 Magnesium Level 2.1 Mean Corpuscular Hemoglobin 31.1 Mean Corpuscular Hemoglobin Concent 34.9 Mean Corpuscular Volume 89.2 Mean Platelet Volume 8.9 Monocytes # 0.3 Monocytes % 5.2 Neutrophils # 4.5 Neutrophils % 69.2 Nucleated Red Blood Cells # 0.0 Nucleated Red Blood Cells % 0.0 Platelet Count 217 Potassium Level 3.8 Red Blood Count 3.66 L Red Cell Distribution Width 13.0 Sodium Level 144 Total Bilirubin 0.3 Total Protein 7.1 White Blood Count 6.4 Medications Medications Current Medications Ondansetron HCl (Zofran Inj) 4 mg Q6H PRN IV NAUSEA AND/OR VOMITING; Start at 17:00 Acetaminophen (Tylenol Tab) 650 mg Q6H PRN PO PAIN LEVEL 1-3 OR FEVER; Start 11/10/16 at 17:00 Acetaminophen (Tylenol Supp) 650 mg Q6H PRN [place] PAIN LEVEL 1-3 OR FEVER; Start 11/10/16 at 17:00 Bisacodyl (Dulcolax Supp) 10 mg DAILY PRN [place] CONSTIPATION; Start 11/10/16 at 17:00 Zolpidem Tartrate (Ambien) 5 mg QHS PRN PO SLEEP; Start 11/10/16 at 17:00 Pantoprazole 40 mg 40 mg DAILY@06 PO Last administered on 11/12/16at 06:46; Admin Dose 40 MG; Start 11/11/16 at 06:00 Cefazolin Sodium 50 ml @ 100 mls/hr Q8 IVPB Last administered on 11/13/16at 14 :18; Admin Dose 100 MLS/HR; Start 11/13/16 at 14:00; Stop 11/16/16 at 13:59 Metronidazole (Flagyl 500 Mg (Pmx)) 100 ml @ 100 mls/hr Q8 IVPB Last administered on 11/13/16at 14:18; Admin Dose 100 MLS/HR; Start 11/13/16 at 14: 00; Stop 11/16/16 at 13:59 Hydromorphone HCl (Dilaudid) 1 mg Q1H PRN IV SEVERE PAIN; Start 11/13/16 at 14 :00 Hydromorphone HCl 0.5 mg 0.5 mg Q1H PRN IV MODERATE PAIN LEVEL 4-6; Start at 14:00 Potassium Cl/ Dextrose/Lact Ringer's (D5-Lr + KCl 20 Meq) 1,000 ml @ 150 mls/ hr Q6H40M IV ; Start 11/13/16 at 14:30 MORALES PEREIRA MD Nov 13, 2016 15:21
[2016-11-13] MEDS: HYDROmorphONE 1 MG/ML SYG IV PRN ×3 (17:06→22:40)
[2016-11-13] MEDS: D5-LR + KCL 20 MEQ 1,000 ML IV SCH ×2 (18:56→21:10)
--- NOTE | 2016-11-13 21:51 | OPR ---
Date/Time of Note Date/Time of Note DATE: 11/13/16 TIME: 21:50 Operative Report Free Text/Dictation OPERATIVE REPORT [facility] Name: Aida [facility] Date: 11/13/16 Preoperative Diagnosis: 1- Pelvic mass with ascites 2- Elevated CA-125 Postoperative Diagnosis: 1- Probable stage IIIc ovarian cancer; pathology pending 2- Ureteral stricture Procedures: Surgeon: Dr. Hayward Memorandum Statement Clerk: Dr. Bryanna Woodson Anesthesia: General Indications for surgery: The patient is a 31- year old female with primary advanced stage ovarian cancer or peritoneal cancer based on the basis of physical findings with elevated markers, radiographic findings, and symptoms of whom a cytoreduction was undertaken after addressing all options with risks and benefits. Findings and Summary After opening and exploration we removed 2500cc ascites and noted minimal upper abdominal disease involving the omentum and possibly diaphragm which were addressed and the pelvic disease was resected en-bloc. The retroperitoneal nodes were minimally enlarged and removed as a precaution At the completion of the procedure the patient was rendered visibly free of disease although it was uncertain whether it was invasive or LMP. Procedure: Name: Aida [facility] After being prepped and draped in the usual manner a midline skin incision was made of appropriate length. The electrocautery was then used to dissect thru the adipose tissue to the level of the fascia. The fascia was incised sharply and the peritoneum identified. At this time the peritoneum was elevated and incised with a Metzenbaum scissors. Upon entering the peritoneal cavity 2500 cc of ascetic fluid was removed. At this time adhesions of intestine to the anterior abdominal wall were lysed with great care. We then searched the abdominal and pelvic contents and found that the left upper quadrant metastatic disease involved the greater omentum with minimal nodularity sent as separate samples (rank 1). The right upper quadrant diseases involved approximately 3 % of the diaphragm surface adjacent to the perinephric area and was excised and ablated with the argon beam sheetmetal patternmaker (rank 1). Exploration of the central abdomen revealed minimal 1-2 cm implants in the right gutter area (rank 1 ). The pelvic disease consisted of involvement of both adnexia, mainly the right with the cul-de-sac involved with confluent disease on the recto-sigmoid (rank 2 ). The largest metastatic disease was 2 cm or slightly larger in dimension and involved the wci-hg-gjh-pelvic organs and gutter. We then placed an aortic Bellfower retractor. At this time, the omentum was initially dissected from the transverse colon with sharp dissection and electrocautery when possible to facilitate exposure and await for pathology to arrive for a frozen section. Vessels to large to be managed by electrocautery or too close to the colon were addressed with the Ligasure or sutured with 3-0 silk suture if needed. This procedure was carried out throughout the length of the omentum and transverse colon. Larger vascular pedicles were divided using the Ligasure if the pedicle was vascular but somewhat skeletonized. Oozing areas in the cautery line with either devise were either recauterized or sutured with 3-0 silk. We then entered the lesser sac bluntly and the gastro-colic ligament from the greater curvature of the stomach with electrocautery and 3-0 silk suture used as needed. The Ligasure was also Name: [facility] [employer] Lumatix used for small pedicles and Ligasure then used for larger pedicles as the gastrocolic ligament was from the stomach. Oozing areas in any cautery lines were either cauterized or sutured with 3-0 silk depending on the proximity to adjacent gastric serosa. The specimen was removed en-bloc, after which the transverse colon was thoroughly inspected and any sero-muscular defects encountered were repaired with interrupted 3-0 Silk suture. Attention was focused on the right upper quadrant and possible small volume metastatic disease on the diaphragm adjacent to the renal area was mobilized with sharp dissection and removed and the adjacent tissue ablated with the argon beam sheetmetal patternmaker. Subsequently the central abdomen was addressed and nodularity on the ascending colon was removed with sharp dissection and the colon reinforced with interrupted 3-0 silk suture. Larger metastatic disease in the right gutter was resected with sharp dissection and electrocautery and the adjacent tissue ablated with the argon beam sheetmetal patternmaker. The mesentery and small bowel were thoroughly inspected and possible implants much smaller than a millimeter were noted throughout the length of the bowel and when pathology came frozen section was consistent with inflammation so IP chemotherapy was not considered. At this time, the pelvic disease was addressed. Because of the extensive disease involving the right adnexia as well as sidewall and left adnexia densely adherent to the sidewall with confluent metastatic disease in the cul-de-sac adherent to the sigmoid colon, an en-bloc modified posterior pelvic exenteration was needed to resect the disease. Initially the right round ligament was transected with a Ligasure uneventfully. The retroperitoneal area was opened and the ureter was identified. Due to the extent of pelvic disease with inflammation and reaction as well as bulky cul-de-sac disease involving the sidewall, the ureter was difficult to initially identify and were strictured distally with ureteral distortion. Therefore it was essential to thoroughly dissect and reposition the ureter as separate procedure. This was accomplished with a right angle clamp and a peanut throughout the length of the ureter. The ureter was dissected Name: [facility] throughout the length and lateralized with a peanut for visualization and exposure. After repositioning the ureter laterally away from the adherent peritoneum that was densely involved with metastatic disease, the infundibulopelvic ligament were first cauterized with the Ligasure, cut and free -tied with 0- Vicryl suture proximally. The triple pedicle was then desiccated and transected with the Ligasure and the specimen sent for frozen section, returning at least LMP after a delay waiting for pathology. Subsequently, on the contralateral side, as we now had better exposure, the left round ligament was transected with a Ligasure uneventfully. The retroperitoneal area was opened and the ureter was identified. Due to the extent of desmoplastic reaction with inflammation and reaction as well as tumor centrally and due to the adjacent process, the ureter was difficult to initially identify and were strictured distally with some element of distortion. Therefore it was essential to thoroughly dissect and reposition the ureter as separate procedure. This was accomplished with a right angle clamp and a peanut throughout the length of the ureter. The ureter was dissected throughout the length and lateralized with a peanut for visualization and exposure. After repositioning the ureter laterally away from the adherent peritoneum that was densely involved with metastatic disease, the infundibulopelvic ligament were first cauterized with the Ligasure and then clamped, cut and free-tied with 0- Vicryl suture proximally. Subsequently, the colon, proximal to the macroscopic disease was dissected away from the mesentery with a tonsil clamp and transected with the 75-mm ANGELITO. The presacral area was then developed digitally and the specimen mobilized. With both ureters identified and traced out the colonic mesentery was divided using an endo-ANGELITO and Ligasure progressively. Any bleeding areas in the staple line were addressed with the Ligasure and/or 3 -0 silk suture. The bladder flap was then developed with a Bovie and any implants on the anterior bladder peritoneum were ablated with an ABC sheetmetal patternmaker. At this time a large right angle clamp was used to dissect the ureters bilaterally, away from the uterine vessels in a manner [facility]: [facility] used during a type-2 hysterectomy. The uterine arteries were clipped and cut, along with the veins. The ureters were then tunneled through the parametria with a large right angle clamp, and the parametrial pedicles were transected with a Ligasure. The bladder pillars were then dissected after which the ureters were confirmed to be undamaged. Hence, remaining parametrial tissue was clamped, cut, and ligated with 0- Vicryl suture and the vaginal angles were clamped with Brando clamps. The uterus was from the cervix and the cervix closed with figure of eight sutures using 0-vicryl. Subsequently, the perirectal tissue was dissected from the distal colon and proximal rectum. Pedicles were addressed with the endo-ANGELITO if adjacent to serosa or if remote and presacral the Ligasure was used, while smaller ones were clipped and cut. The rectum was stapled with a Contour and the reproductive organs, pelvic peritoneum, and segment of recto-sigmoid removed en-bloc. After confirming hemostasis we addressed the lymph node dissection since we had excellent exposure. Initially lymph node tissue adjacent to the right external iliac artery and vein, hypogastric artery and vein, as well as obturator fossa were removed with sharp and blunt dissection, using the Ligasure for hemostasis and lymphostasis and of note minimally enlarged shruti tissue was noted and removed. The dissection was continued to include shruti tissue adjacent to the common iliac vessels. The retractors were adjusted and shruti tissue adjacent to the vena cava, as well as aorto-caval nodes were removed using identical technique. At this time we adjusted the retractors and left pelvic lymph node tissue adjacent to the left external iliac artery and vein, hypogastric artery and vein , as well as obturator fossa were removed with sharp and blunt dissection, using the liga for hemostasis and lymphostasis. The dissection was continued to include shruti tissue adjacent to the common iliac vessels. Subsequently, the retractors were adjusted and any shruti tissue adjacent to the aorta were dissected using sharp and blunt dissection with the Ligasure for hemostasis and lymphostasis. After confirming hemostasis the proximal large bowel was mobilized and a purse string Name: [facility] maker placed. After using the devise the detachable part of an EEA (29 mm) devise was sutured in place, the rectal segment inserted appropriately, and the anastamosis completed uneventfully. The integrity was confirmed by inserting air in the rectum and noting an absence of leakage, after which the anastamosis was supported with Interrupted 3-0 silk suture. At this time, after all packing was removed, the abdomen thoroughly irrigated, hemostasis confirmed, and a Pelvic Sung drain was placed. A figure of eight suture was placed at the caudal apex of the incision with 1- Vicryl suture and used for exposure by elevating with a Pean clamp. Seprafilm was placed. Continuous 1 Vicryl suture was used from the rostral apex and run to the supra-pubic area. The final suture was tied appropriately, after which the figure of eight was tied. The subcutaneous tissue was irrigated and the skin was closed with a deep layer of 3 -0 Vicryl suture and skin clips. The sponge, needle, and instrument were correct two times. The estimated blood loss was 400 ml. The patient tolerated the procedure well and left the OR in good condition. It should be noted that all visible disease was resected or ablated. Matt Hayward M.D. MATT HAYWARD MD Nov 13, 2016 21:50
[2016-11-14] MEDS: HYDROmorphONE 1 MG/ML SYG IV PRN ×11 (01:04→23:56)
[2016-11-14] MEDS: D5-LR + KCL 20 MEQ 1,000 ML IV SCH ×5 (03:30→20:40)
[2016-11-14 05:54] LABS: INR 1.43; PROTIME 17.5 Sec (12.2-14.2); PT RATIO 1.4
[2016-11-14 05:56] LABS: ALBUMIN 2.3 g/dl (3.3-4.9)
[2016-11-14 05:57] LABS: POTASSIUM 3.6 mmol/L (3.5-5.1)
[2016-11-14 05:58] LABS: CREATININE 0.47 mg/dl (0.44-1.00)
[2016-11-14 05:59] LABS: BILIRUBIN,INDIRECT 0.2 mg/dl (0-1.1); BILIRUBIN,TOTAL 0.2 mg/dl (0.2-1.3); CALCIUM 7.4 mg/dl (8.4-10.2); MAGNESIUM 1.5 mg/dl (1.7-2.5); TOTAL PROTEIN 4.6 g/dl (6.1-8.1)
[2016-11-14] MEDS: PANTOPRAZOLE (EC) 40 MG TAB PO SCH (06:00)
[2016-11-14 06:03] LABS: BASOPHILS % 0.3 % (0.0-2.0); HEMATOCRIT 25.4 % (37.0-47.0); HEMOGLOBIN 8.8 g/dl (12.0-16.0); LYMPHOCYTES # 1.4 10^3/ul (0.8-2.9); LYMPHOCYTES % 14.3 % (15.0-51.0); MEAN CORPUSCULAR HEMOGLOBIN 31.3 pg (29.0-33.0); MEAN CORPUSCULAR HGB CONC 34.6 g/dl (32.0-37.0); MEAN CORPUSCULAR VOLUME 90.5 fl (82.0-101.0); MONOCYTE # 0.8 10^3/ul (0.3-0.9); NEUTROPHIL # 7.6 10^3/ul (1.6-7.5); NEUTROPHILS % 77.4 % (39.0-77.0); PLATELET COUNT 181 10^3/UL (140-440); RED BLOOD COUNT 2.81 10^6/ul (4.20-5.40); RED CELL DISTRIBUTION WIDTH 12.6 % (11.5-14.5); UNCORRECTED WBC 9.8 10^3/ul (4.8-10.8); WHITE BLOOD COUNT 9.8 10^3/ul (4.8-10.8)
[2016-11-14 06:18] LABS: CONDITION 1
[2016-11-14] MEDS: CEFAZOLIN 1 GM/50 ML (PMX) 50 ML IVPB SCH ×3 (06:18→22:33)
[2016-11-14] MEDS: metroNIDAZOLE 500 MG/NS (PMX) 100 ML IVPB SCH ×3 (06:18→23:25)
[2016-11-14 07:25] VITALS: BP 105/55; PULSE 103
--- NOTE | 2016-11-14 13:37 | PN ---
Date/Time of Note Date/Time of Note DATE: 11/14/16 TIME: 13:35 Assessment/Plan VTE Prophylaxis VTE Prophylaxis Intervention: SCD's Lines/Catheters IV Catheter Type (from Nrs): Peripheral IV Urinary Cath still in place: Yes Reason Cath still needed: other (indicate) Assessment/Plan Chief Complaint/Hosp Course ASSESSMENT AND PLAN: 1. Large ovarian mass. STACKING MACHINE OPERATOR has been consulted. Status post BSO and sigmoid resection and anastomosis Follow BENEFITS CONSULTANT oncology recommendations Continue postop care as per BENEFITS CONSULTANT oncologist, continue pain medication, n.p.o. , NG tube 2. Peritoneal carcinomatosis, most pronounced within the lower abdomen and pelvis from an uncertain primary with Geqcjitx-dw-jmoev volume of ascites, likely malignant in nature. BENEFITS CONSULTANT oncology consulted oncology work up postoperatively as per BENEFITS CONSULTANT oncologist Follow-up pathology 3. Deep venous thrombosis prophylaxis, on SCD. 4. Gastrointestinal prophylaxis, on Protonix. We will continue to monitor the patient closely. Further recommendation, management and treatment as per clinical course. Problems: Subjective 24 Hr Interval Summary Free Text/Dictation Postop day #1 Patient continues to complain of having lower abdominal/pelvic pain NG-tube in place Complain of having nasal and throat discomfort secondary to NG tube Exam/Review of Systems Vital Signs Vitals Vital Signs Date Time Temp Pulse Resp B/P Pulse Ox O2 Delivery O2 Flow Rate FiO2 11/14/16 07:25 97.9 103 105/55 100 Nasal Cannula 2.0 11/13/16 20:00 18 Intake and Output 11/13/16 11/13/16 11/14/16 15:00 23:00 07:00 Intake Total 2400 ml 800 ml 1525 ml Output Total 905 ml 705 ml 400 ml Balance 1495 ml 95 ml 1125 ml Exam General: The patient is in mild to moderate distress secondary to pain. HEENT: Atraumatic, normocephalic. The pupils are equal and round . Neck: Supple with full range of motion. Chest: Normal expansion of the thorax during inspiration Lungs: Clear to auscultation bilaterally Heart: Normal S1-S2, Regular rhythm and rate. Abdomen: Soft , nontender, nondistended , bowel sounds are present although hypoactive. Surgical site is dry and clean, CALLY tube/drain in place Extremities: Normal to inspection, no edema no cyanosis Neurologic: Normal mental status,The patient is awake, alert and oriented . Results Result Diagram: 11/14/16 0505 11/14/16 0505 Results 24 hrs Laboratory Tests Test 11/14/16 05:05 Alanine Aminotransferase (ALT/SGPT) 48 Albumin 2.3 #L Alkaline Phosphatase 26 #L Anion Gap 13 Aspartate Amino Transf (AST/SGOT) 32 Basophils # 0.0 Basophils % 0.3 Blood Urea Nitrogen 6 L Calcium Level 7.4 L Carbon Dioxide Level 25 Chloride Level 107 Creatinine 0.47 Direct Bilirubin 0.00 Eosinophils # 0.0 Eosinophils % 0.0 Glucose Level 140 # Hematocrit 25.4 #L Hemoglobin 8.8 #L INR International Normalized Ratio 1.43 Indirect Bilirubin 0.2 Lymphocytes # 1.4 Lymphocytes % 14.3 L Magnesium Level 1.5 L Mean Corpuscular Hemoglobin 31.3 Mean Corpuscular Hemoglobin Concent 34.6 Mean Corpuscular Volume 90.5 Mean Platelet Volume 9.0 Monocytes # 0.8 Monocytes % 8.0 Neutrophils # 7.6 H Neutrophils % 77.4 H Nucleated Red Blood Cells # 0.0 Nucleated Red Blood Cells % 0.0 Platelet Count 181 Potassium Level 3.6 Prothrombin Time 17.5 #H Prothrombin Time Ratio 1.4 Red Blood Count 2.81 #L Red Cell Distribution Width 12.6 Sodium Level 141 Total Bilirubin 0.2 Total Protein 4.6 #L White Blood Count 9.8 # Medications Medications Current Medications Ondansetron HCl (Zofran Inj) 4 mg Q6H PRN IV NAUSEA AND/OR VOMITING; Start at 17:00 Acetaminophen (Tylenol Tab) 650 mg Q6H PRN PO PAIN LEVEL 1-3 OR FEVER; Start 11/10/16 at 17:00 Acetaminophen (Tylenol Supp) 650 mg Q6H PRN [place] PAIN LEVEL 1-3 OR FEVER; Start 11/10/16 at 17:00 Bisacodyl (Dulcolax Supp) 10 mg DAILY PRN [place] CONSTIPATION; Start 11/10/16 at 17:00 Zolpidem Tartrate (Ambien) 5 mg QHS PRN PO SLEEP; Start 11/10/16 at 17:00 Pantoprazole 40 mg 40 mg DAILY@06 PO Last administered on 11/12/16at 06:46; Admin Dose 40 MG; Start 11/11/16 at 06:00 Cefazolin Sodium 50 ml @ 100 mls/hr Q8 IVPB Last administered on 11/14/16at 06 :18; Admin Dose 100 MLS/HR; Start 11/13/16 at 14:00; Stop 11/16/16 at 13:59 Metronidazole (Flagyl 500 Mg (Pmx)) 100 ml @ 100 mls/hr Q8 IVPB Last administered on 11/14/16at 06:18; Admin Dose 100 MLS/HR; Start 11/13/16 at 14: 00; Stop 11/16/16 at 13:59 Hydromorphone HCl (Dilaudid) 1 mg Q1H PRN IV SEVERE PAIN Last administered on 11/14/16at 13:30; Admin Dose 1 MG; Start 11/13/16 at 14:00 Hydromorphone HCl 0.5 mg 0.5 mg Q1H PRN IV MODERATE PAIN LEVEL 4-6; Start at 14:00 Potassium Cl/ Dextrose/Lact Ringer's (D5-Lr + KCl 20 Meq) 1,000 ml @ 150 mls/ hr Q6H40M IV Last administered on 11/14/16at 11:21; Admin Dose 150 MLS/HR; Start 11/13/16 at 14:30 MORALES PEREIRA MD Nov 14, 2016 13:37
[2016-11-14 20:00] VITALS: BP 108/56; PULSE 108
[2016-11-14] MEDS: ALBUTEROL 0.5% (NEB) 2.5 MG/0.5 ML AMP HHN PRN (23:17)
[2016-11-15] MEDS: HYDROmorphONE 1 MG/ML SYG IV PRN ×9 (01:54→22:58)
[2016-11-15] MEDS: D5-LR + KCL 20 MEQ 1,000 ML IV SCH ×3 (04:45→19:50)
[2016-11-15] MEDS: CEFAZOLIN 1 GM/50 ML (PMX) 50 ML IVPB SCH ×3 (05:19→22:14)
[2016-11-15] MEDS: PANTOPRAZOLE (EC) 40 MG TAB PO SCH (05:23)
[2016-11-15 05:44] LABS: BASOPHILS % 0.2 % (0.0-2.0); EOSINOPHILS # 0.1 10^3/ul (0.0-0.5); EOSINOPHILS % 1.2 % (0.0-7.0); HEMATOCRIT 25.1 % (37.0-47.0); HEMOGLOBIN 8.7 g/dl (12.0-16.0); LYMPHOCYTES # 1.1 10^3/ul (0.8-2.9); LYMPHOCYTES % 11.6 % (15.0-51.0); MEAN CORPUSCULAR HEMOGLOBIN 31.2 pg (29.0-33.0); MEAN CORPUSCULAR HGB CONC 34.6 g/dl (32.0-37.0); MEAN CORPUSCULAR VOLUME 90.1 fl (82.0-101.0); MEAN PLATELET VOLUME 8.4 fl (7.4-10.4); MONOCYTE # 0.6 10^3/ul (0.3-0.9); MONOCYTES % 5.7 % (0.0-11.0); NEUTROPHIL # 7.8 10^3/ul (1.6-7.5); NEUTROPHILS % 81.3 % (39.0-77.0); PLATELET COUNT 168 10^3/UL (140-440); RED BLOOD COUNT 2.78 10^6/ul (4.20-5.40); RED CELL DISTRIBUTION WIDTH 13.3 % (11.5-14.5); UNCORRECTED WBC 9.6 10^3/ul (4.8-10.8); WHITE BLOOD COUNT 9.6 10^3/ul (4.8-10.8)
[2016-11-15 05:55] LABS: CHLORIDE 107 mmol/L (97-110)
[2016-11-15 05:56] LABS: POTASSIUM 3.7 mmol/L (3.5-5.1); SODIUM 142 mmol/L (135-144)
[2016-11-15 05:58] LABS: ANION GAP 8 (8-16); CARBON DIOXIDE 31 mmol/L (21-31); CREATININE 0.42 mg/dl (0.44-1.00)
[2016-11-15 05:59] LABS: CALCIUM 7.9 mg/dl (8.4-10.2); GLUCOSE 121 mg/dl (70-220)
[2016-11-15] MEDS: metroNIDAZOLE 500 MG/NS (PMX) 100 ML IVPB SCH ×3 (05:59→22:59)
[2016-11-15 06:05] LABS: BLOOD UREA NITROGEN < 2 mg/dl (7-20)
[2016-11-15 06:14] LABS: CONDITION 1
[2016-11-15 08:00] VITALS: BP 106/53; PULSE 111; RESP 20
--- NOTE | 2016-11-15 14:06 | PN ---
Date/Time of Note Date/Time of Note DATE: 11/15/16 TIME: 13:51 Assessment/Plan VTE Prophylaxis VTE Prophylaxis Intervention: SCD's Lines/Catheters IV Catheter Type (from Nrsg): Peripheral IV Urinary Cath still in place: Yes Reason Cath still needed: other (indicate) Assessment/Plan Chief Complaint/Hosp Course ASSESSMENT AND PLAN: 1. Large ovarian mass. PRESSURE SEALER AND TESTER has been consulted. Status post BSO and sigmoid resection and anastomosis Follow INSIDE SALES MANAGER oncology recommendations Continue postop care as per INSIDE SALES MANAGER oncologist, continue pain medication, n.p.o. , NG tube 2. Peritoneal carcinomatosis, most pronounced within the lower abdomen and pelvis from an uncertain primary with Sfdetdvo-px-vrwny volume of ascites, likely malignant in nature. INSIDE SALES MANAGER oncology consulted oncology work up postoperatively as per INSIDE SALES MANAGER oncologist Follow-up pathology 3. Anemia, type and cross and transfuse 1 unit of packed red blood cells follow CBC in a.m. 4. Deep venous thrombosis prophylaxis, on SCD. 5. Gastrointestinal prophylaxis, on Protonix. We will continue to monitor the patient closely. Further recommendation, management and treatment as per clinical course. Problems: Subjective 24 Hr Interval Summary Free Text/Dictation Patient complains of having abdominal discomfort Complains of having congestion Also complains of having discomfort of the NG tube Exam/Review of Systems Vital Signs Vitals Vital Signs Date Time Temp Pulse Resp B/P Pulse Ox O2 Delivery O2 Flow Rate FiO2 11/15/16 08:10 Nasal Cannula 2.0 11/15/16 08:00 99.1 111 20 106/53 97 Intake and Output 11/14/16 11/14/16 11/15/16 14:59 22:59 06:59 Intake Total 1150 ml 1450 ml 1025 ml Output Total 180 ml 160 ml 50 ml Balance 970 ml 1290 ml 975 ml Exam General: The patient is moderate distress due to pain. HEENT: Atraumatic, normocephalic. The pupils are equal and round . Neck: Supple with full range of motion. Chest: Normal expansion of the thorax during inspiration Lungs: Clear to auscultation bilaterally Heart: Normal S1-S2, Regular rhythm and rate. Abdomen: Soft , moderately tender at surgical site, nondistended , bowel sounds are present. Surgical site is dry and clean Extremities: Normal to inspection, no edema no cyanosis Neurologic: Normal mental status,The patient is awake, alert and oriented . Results Result Diagram: 11/15/16 0502 11/15/16 0502 Results 24 hrs Laboratory Tests Test 11/15/16 05:02 Anion Gap 8 Basophils # 0.0 Basophils % 0.2 Blood Urea Nitrogen < 2 L Calcium Level 7.9 L Carbon Dioxide Level 31 Chloride Level 107 Creatinine 0.42 L Eosinophils # 0.1 Eosinophils % 1.2 Glucose Level 121 Hematocrit 25.1 L Hemoglobin 8.7 L Lymphocytes # 1.1 Lymphocytes % 11.6 L Mean Corpuscular Hemoglobin 31.2 Mean Corpuscular Hemoglobin Concent 34.6 Mean Corpuscular Volume 90.1 Mean Platelet Volume 8.4 Monocytes # 0.6 Monocytes % 5.7 Neutrophils # 7.8 H Neutrophils % 81.3 H Nucleated Red Blood Cells # 0.0 Nucleated Red Blood Cells % 0.0 Platelet Count 168 Potassium Level 3.7 Red Blood Count 2.78 L Red Cell Distribution Width 13.3 Sodium Level 142 White Blood Count 9.6 Medications Medications Current Medications Ondansetron HCl (Zofran Inj) 4 mg Q6H PRN IV NAUSEA AND/OR VOMITING; Start at 17:00 Acetaminophen (Tylenol Tab) 650 mg Q6H PRN PO PAIN LEVEL 1-3 OR FEVER; Start 11/10/16 at 17:00 Acetaminophen (Tylenol Supp) 650 mg Q6H PRN [place] PAIN LEVEL 1-3 OR FEVER; Start 11/10/16 at 17:00 Bisacodyl (Dulcolax Supp) 10 mg DAILY PRN [place] CONSTIPATION; Start 11/10/16 at 17:00 Zolpidem Tartrate (Ambien) 5 mg QHS PRN PO SLEEP; Start 11/10/16 at 17:00 Pantoprazole 40 mg 40 mg DAILY@06 PO Last administered on 11/12/16at 06:46; Admin Dose 40 MG; Start 11/11/16 at 06:00 Cefazolin Sodium 50 ml @ 100 mls/hr Q8 IVPB Last administered on 11/15/16at 13 :02; Admin Dose 100 MLS/HR; Start 11/13/16 at 14:00; Stop 11/16/16 at 13:59 Metronidazole (Flagyl 500 Mg (Pmx)) 100 ml @ 100 mls/hr Q8 IVPB Last administered on 11/15/16at 05:59; Admin Dose 100 MLS/HR; Start 11/13/16 at 14: 00; Stop 11/16/16 at 13:59 Hydromorphone HCl (Dilaudid) 1 mg Q1H PRN IV SEVERE PAIN Last administered on 11/15/16at 11:56; Admin Dose 1 MG; Start 11/13/16 at 14:00 Hydromorphone HCl 0.5 mg 0.5 mg Q1H PRN IV MODERATE PAIN LEVEL 4-6; Start at 14:00 Potassium Cl/ Dextrose/Lact Ringer's (D5-Lr + KCl 20 Meq) 1,000 ml @ 150 mls/ hr Q6H40M IV Last administered on 11/15/16at 13:02; Admin Dose 150 MLS/HR; Start 11/13/16 at 14:30 MORALES PEREIRA MD Nov 15, 2016 14:03
[2016-11-15] MEDS: ALBUTEROL 0.5% (NEB) 2.5 MG/0.5 ML AMP HHN PRN (14:25)
[2016-11-15] MEDS ORDERED: SOD CHLORIDE 0.9% 500 ML IV ONE (14:30)
[2016-11-15] MEDS ORDERED: ACETAMINOPHEN 325 MG TAB NGT ONE (14:30)
[2016-11-15] MEDS ORDERED: FUROSEMIDE 20 MG INJ IV ONE (14:30)
[2016-11-15] MEDS ORDERED: ACETAMINOPHEN 650MG/20.3ML CUP NGT ONE (14:30)
[2016-11-15] MEDS ORDERED: DIPHENHYDRAMINE 50 MG INJ IV ONE (16:00)
[2016-11-15 20:00] VITALS: BP 117/64; PULSE 108; RESP 20
--- NOTE | 2016-11-15 22:50 | PN ---
Date/Time of Note Date/Time of Note DATE: 11/15/16 TIME: 22:46 Assessment/Plan VTE Prophylaxis VTE Prophylaxis Intervention: SCD's Lines/Catheters IV Catheter Type (from Nrs): Peripheral IV Urinary Cath still in place: Yes Assessment/Plan Chief Complaint/Hosp Course Pelvic pain, elevated CA-125, Pelvic mass Problems: Assessment/Plan A- doing reasonable and awaiting bowel fct P- encouraged to mobilize. Will give 1 unit of PRBC because O2 delivery to anastomosis is critical. Probably start TPN 1-2 d Subjective 24 Hr Interval Summary Free Text/Dictation S- Slightly increased pain, no flatus and not OOB. Main issus is NGT O- resp- clear cvs- NSR abd- soft mild pain ext NT no edema A- doing reasonable and awaiting bowel fct P- encouraged to mobilize. Will give 1 unit of PRBC because O2 delivery to anastomosis is critical. Probably start TPN 1-2 d Exam/Review of Systems Vital Signs Vitals Vital Signs Date Time Temp Pulse Resp B/P Pulse Ox O2 Delivery O2 Flow Rate FiO2 11/15/16 18:09 2.0 11/15/16 14:25 124 18 100 Nasal Cannula 11/15/16 08:00 99.1 106/53 Intake and Output 11/14/16 11/14/16 11/15/16 15:00 23:00 07:00 Intake Total 625 ml 1450 ml 1025 ml Output Total 180 ml 160 ml 50 ml Balance 445 ml 1290 ml 975 ml Results Result Diagram: 11/15/16 0502 11/15/16 0502 Results 24 hrs Laboratory Tests Test 11/15/16 05:02 Anion Gap 8 Basophils # 0.0 Basophils % 0.2 Blood Urea Nitrogen < 2 L Calcium Level 7.9 L Carbon Dioxide Level 31 Chloride Level 107 Creatinine 0.42 L Eosinophils # 0.1 Eosinophils % 1.2 Glucose Level 121 Hematocrit 25.1 L Hemoglobin 8.7 L Lymphocytes # 1.1 Lymphocytes % 11.6 L Mean Corpuscular Hemoglobin 31.2 Mean Corpuscular Hemoglobin Concent 34.6 Mean Corpuscular Volume 90.1 Mean Platelet Volume 8.4 Monocytes # 0.6 Monocytes % 5.7 Neutrophils # 7.8 H Neutrophils % 81.3 H Nucleated Red Blood Cells # 0.0 Nucleated Red Blood Cells % 0.0 Platelet Count 168 Potassium Level 3.7 Red Blood Count 2.78 L Red Cell Distribution Width 13.3 Sodium Level 142 White Blood Count 9.6 Medications Medications Current Medications Ondansetron HCl (Zofran Inj) 4 mg Q6H PRN IV NAUSEA AND/OR VOMITING; Start at 17:00 Acetaminophen (Tylenol Tab) 650 mg Q6H PRN PO PAIN LEVEL 1-3 OR FEVER; Start 11/10/16 at 17:00 Acetaminophen (Tylenol Supp) 650 mg Q6H PRN [place] PAIN LEVEL 1-3 OR FEVER; Start 11/10/16 at 17:00 Bisacodyl (Dulcolax Supp) 10 mg DAILY PRN [place] CONSTIPATION; Start 11/10/16 at 17:00 Zolpidem Tartrate (Ambien) 5 mg QHS PRN PO SLEEP; Start 11/10/16 at 17:00 Pantoprazole 40 mg 40 mg DAILY@06 PO Last administered on 11/12/16at 06:46; Admin Dose 40 MG; Start 11/11/16 at 06:00 Cefazolin Sodium 50 ml @ 100 mls/hr Q8 IVPB Last administered on 11/15/16at 22 :14; Admin Dose 100 MLS/HR; Start 11/13/16 at 14:00; Stop 11/16/16 at 13:59 Metronidazole (Flagyl 500 Mg (Pmx)) 100 ml @ 100 mls/hr Q8 IVPB Last administered on 11/15/16at 14:06; Admin Dose 100 MLS/HR; Start 11/13/16 at 14: 00; Stop 11/16/16 at 13:59 Hydromorphone HCl (Dilaudid) 1 mg Q1H PRN IV SEVERE PAIN Last administered on 11/15/16at 20:53; Admin Dose 1 MG; Start 11/13/16 at 14:00 Hydromorphone HCl 0.5 mg 0.5 mg Q1H PRN IV MODERATE PAIN LEVEL 4-6; Start at 14:00 Potassium Cl/ Dextrose/Lact Ringer's (D5-Lr + KCl 20 Meq) 1,000 ml @ 150 mls/ hr Q6H40M IV Last administered on 11/15/16at 13:02; Admin Dose 150 MLS/HR; Start 12/26/16 at 14:30 MATT BARON MD Nov 15, 2016 22:50
[2016-11-16] MEDS: HYDROmorphONE 1 MG/ML SYG IV PRN ×10 (01:05→22:29)
[2016-11-16] MEDS: D5-LR + KCL 20 MEQ 1,000 ML IV SCH ×5 (02:30→22:29)
[2016-11-16] MEDS: CEFAZOLIN 1 GM/50 ML (PMX) 50 ML IVPB SCH (05:12)
[2016-11-16 05:49] LABS: POTASSIUM 3.7 mmol/L (3.5-5.1)
[2016-11-16 05:52] LABS: CREATININE 0.39 mg/dl (0.44-1.00)
[2016-11-16 05:53] LABS: CALCIUM 8.1 mg/dl (8.4-10.2)
[2016-11-16] MEDS: PANTOPRAZOLE (EC) 40 MG TAB PO SCH (06:00)
[2016-11-16 06:39] LABS: EOSINOPHILS # 0.1 10^3/ul (0.0-0.5); HEMATOCRIT 29.7 % (37.0-47.0); HEMOGLOBIN 10.3 g/dl (12.0-16.0); LYMPHOCYTES # 1.3 10^3/ul (0.8-2.9); LYMPHOCYTES % 11.6 % (15.0-51.0); MEAN CORPUSCULAR HEMOGLOBIN 31.2 pg (29.0-33.0); MEAN CORPUSCULAR HGB CONC 34.7 g/dl (32.0-37.0); MEAN CORPUSCULAR VOLUME 90.1 fl (82.0-101.0); MEAN PLATELET VOLUME 8.8 fl (7.4-10.4); MONOCYTE # 0.5 10^3/ul (0.3-0.9); NEUTROPHIL # 9.6 10^3/ul (1.6-7.5); NEUTROPHILS % 83.4 % (39.0-77.0); PLATELET COUNT 171 10^3/UL (140-440); UNCORRECTED WBC 11.6 10^3/ul (4.8-10.8); WHITE BLOOD COUNT 11.6 10^3/ul (4.8-10.8)
[2016-11-16 06:57] LABS: CONDITION 1
[2016-11-16] MEDS: metroNIDAZOLE 500 MG/NS (PMX) 100 ML IVPB SCH (07:08)
--- NOTE | 2016-11-16 09:59 | PN ---
Date/Time of Note Date/Time of Note DATE: 11/16/16 TIME: 09:57 Assessment/Plan VTE Prophylaxis VTE Prophylaxis Intervention: SCD's Lines/Catheters IV Catheter Type (from Nrs): Peripheral IV Urinary Cath still in place: Yes Assessment/Plan Chief Complaint/Hosp Course Pelvic pain, elevated CA-125, Pelvic mass Problems: Assessment/Plan A- doing reasonable and awaiting bowel fct P- encouraged to mobilize. Probably start TPN today or a.m. Subjective 24 Hr Interval Summary Free Text/Dictation S- Feels better overall and starting to get OOB O- resp- clear cvs- NSR abd- soft mild pain ext NT no edema A- doing reasonable and awaiting bowel fct P- encouraged to mobilize. Probably start TPN today or a.m. Exam/Review of Systems Vital Signs Vitals Vital Signs Date Time Temp Pulse Resp B/P Pulse Ox O2 Delivery O2 Flow Rate FiO2 11/16/16 05:48 2.0 11/15/16 20:00 99.0 108 20 117/64 100 Nasal Cannula Intake and Output 11/15/16 11/15/16 11/16/16 15:00 23:00 07:00 Intake Total 1075 ml 520 ml 1275 ml Output Total 240 ml 1355 ml Balance 1075 ml 280 ml -80 ml Results Result Diagram: 11/16/16 0505 11/16/16 0505 Results 24 hrs Laboratory Tests Test 11/16/16 05:05 Anion Gap 13 Basophils # 0.0 Basophils % 0.0 Blood Urea Nitrogen 2 L Calcium Level 8.1 L Carbon Dioxide Level 28 Chloride Level 105 Creatinine 0.39 L Eosinophils # 0.1 Eosinophils % 1.0 Glucose Level 117 Hematocrit 29.7 L Hemoglobin 10.3 L Lymphocytes # 1.3 Lymphocytes % 11.6 L Mean Corpuscular Hemoglobin 31.2 Mean Corpuscular Hemoglobin Concent 34.7 Mean Corpuscular Volume 90.1 Mean Platelet Volume 8.8 Monocytes # 0.5 Monocytes % 4.0 Neutrophils # 9.6 H Neutrophils % 83.4 H Nucleated Red Blood Cells # 0.0 Nucleated Red Blood Cells % 0.0 Platelet Count 171 Potassium Level 3.7 Red Blood Count 3.30 L Red Cell Distribution Width 13.0 Sodium Level 142 White Blood Count 11.6 #H Medications Medications Current Medications Ondansetron HCl (Zofran Inj) 4 mg Q6H PRN IV NAUSEA AND/OR VOMITING; Start at 17:00 Acetaminophen (Tylenol Tab) 650 mg Q6H PRN PO PAIN LEVEL 1-3 OR FEVER; Start 11/10/16 at 17:00 Acetaminophen (Tylenol Supp) 650 mg Q6H PRN [place] PAIN LEVEL 1-3 OR FEVER; Start 11/10/16 at 17:00 Bisacodyl (Dulcolax Supp) 10 mg DAILY PRN [place] CONSTIPATION; Start 11/10/16 at 17:00 Zolpidem Tartrate (Ambien) 5 mg QHS PRN PO SLEEP; Start 11/10/16 at 17:00 Pantoprazole 40 mg 40 mg DAILY@06 PO Last administered on 11/12/16at 06:46; Admin Dose 40 MG; Start 11/11/16 at 06:00 Cefazolin Sodium 50 ml @ 100 mls/hr Q8 IVPB Last administered on 11/16/16at 05 :12; Admin Dose 100 MLS/HR; Start 11/13/16 at 14:00; Stop 11/16/16 at 13:59 Metronidazole (Flagyl 500 Mg (Pmx)) 100 ml @ 100 mls/hr Q8 IVPB Last administered on 11/16/16at 07:08; Admin Dose 100 MLS/HR; Start 11/13/16 at 14: 00; Stop 11/16/16 at 13:59 Hydromorphone HCl (Dilaudid) 1 mg Q1H PRN IV SEVERE PAIN Last administered on 11/16/16at 09:07; Admin Dose 1 MG; Start 11/13/16 at 14:00 Hydromorphone HCl 0.5 mg 0.5 mg Q1H PRN IV MODERATE PAIN LEVEL 4-6; Start at 14:00 Potassium Cl/ Dextrose/Lact Ringer's (D5-Lr + KCl 20 Meq) 1,000 ml @ 150 mls/ hr Q6H40M IV Last administered on 11/16/16at 03:17; Admin Dose 150 MLS/HR; Start 11/13/16 at 14:30 MATT BARON MD Nov 16, 2016 09:59
[2016-11-16 10:19] VITALS: BP 99/48; PULSE 95; RESP 20
--- NOTE | 2016-11-16 13:44 | PN ---
Date/Time of Note Date/Time of Note DATE: 11/16/16 TIME: 13:42 Assessment/Plan VTE Prophylaxis VTE Prophylaxis Intervention: SCD's Lines/Catheters IV Catheter Type (from Nrs): Peripheral IV Urinary Cath still in place: Yes Reason Cath still needed: other (indicate) Assessment/Plan Chief Complaint/Hosp Course ASSESSMENT AND PLAN: 1. Large ovarian mass. INTERIOR DESIGN INSTRUCTOR has been consulted. Status post BSO and sigmoid resection and anastomosis Follow FINAL DRESSING CUTTER oncology recommendations Continue postop care as per FINAL DRESSING CUTTER oncologist, continue pain medication, n.p.o. , NG tube Plan to start TPN tomorrow 2. Peritoneal carcinomatosis, most pronounced within the lower abdomen and pelvis from an uncertain primary with [id number] volume of ascites, likely malignant in nature. FINAL DRESSING CUTTER oncology consulted oncology work up postoperatively as per FINAL DRESSING CUTTER oncologist Follow-up pathology 3. Anemia, type and cross and transfuse 1 unit of packed red blood cells, stable, follow CBC in a.m. 4. Deep venous thrombosis prophylaxis, on SCD. 5. Gastrointestinal prophylaxis, on Protonix. We will continue to monitor the patient closely. Further recommendation, management and treatment as per clinical course. Problems: Subjective 24 Hr Interval Summary Free Text/Dictation Patient continues to complain of having abdominal discomfort NG tube in place No flatus or bowel movement Denies of any chest pain or shortness of breath Exam/Review of Systems Vital Signs Vitals Vital Signs Date Time Temp Pulse Resp B/P Pulse Ox O2 Delivery O2 Flow Rate FiO2 11/16/16 12:39 Nasal Cannula 11/16/16 10:19 98.8 95 20 99/48 99 2.0 Intake and Output 11/15/16 11/15/16 11/16/16 14:59 22:59 06:59 Intake Total 1075 ml 520 ml 1275 ml Output Total 240 ml 1355 ml Balance 1075 ml 280 ml -80 ml Exam General: The patient is well-developed, Not in acute distress. HEENT: Atraumatic, normocephalic. The pupils are equal and round . Neck: Supple with full range of motion. Chest: Normal expansion of the thorax during inspiration Lungs: Clear to auscultation bilaterally Heart: Normal S1-S2, Regular rhythm and rate. Abdomen: Soft , minimally tender lower abdominal region, nondistended , bowel sounds are present. Surgical site is dry and clean Extremities: Normal to inspection, no edema no cyanosis Neurologic: Normal mental status,The patient is awake, alert and oriented . Results Result Diagram: 11/16/16 0505 11/16/16 0505 Results 24 hrs Laboratory Tests Test 11/16/16 05:05 Anion Gap 13 Basophils # 0.0 Basophils % 0.0 Blood Urea Nitrogen 2 L Calcium Level 8.1 L Carbon Dioxide Level 28 Chloride Level 105 Creatinine 0.39 L Eosinophils # 0.1 Eosinophils % 1.0 Glucose Level 117 Hematocrit 29.7 L Hemoglobin 10.3 L Lymphocytes # 1.3 Lymphocytes % 11.6 L Mean Corpuscular Hemoglobin 31.2 Mean Corpuscular Hemoglobin Concent 34.7 Mean Corpuscular Volume 90.1 Mean Platelet Volume 8.8 Monocytes # 0.5 Monocytes % 4.0 Neutrophils # 9.6 H Neutrophils % 83.4 H Nucleated Red Blood Cells # 0.0 Nucleated Red Blood Cells % 0.0 Platelet Count 171 Potassium Level 3.7 Red Blood Count 3.30 L Red Cell Distribution Width 13.0 Sodium Level 142 White Blood Count 11.6 #H Medications Medications Current Medications Ondansetron HCl (Zofran Inj) 4 mg Q6H PRN IV NAUSEA AND/OR VOMITING; Start at 17:00 Acetaminophen (Tylenol Tab) 650 mg Q6H PRN PO PAIN LEVEL 1-3 OR FEVER; Start 11/10/16 at 17:00 Acetaminophen (Tylenol Supp) 650 mg Q6H PRN OR PAIN LEVEL 1-3 OR FEVER; Start 11/10/16 at 17:00 Bisacodyl (Dulcolax Supp) 10 mg DAILY PRN [place] CONSTIPATION; Start 11/10/16 at 17:00 Zolpidem Tartrate (Ambien) 5 mg QHS PRN PO SLEEP; Start 11/10/16 at 17:00 Pantoprazole 40 mg 40 mg DAILY@06 PO Last administered on 11/12/16at 06:46; Admin Dose 40 MG; Start 11/11/16 at 06:00 Cefazolin Sodium 50 ml @ 100 mls/hr Q8 IVPB Last administered on 11/16/16at 05 :12; Admin Dose 100 MLS/HR; Start 11/13/16 at 14:00; Stop 11/16/16 at 13:59 Metronidazole (Flagyl 500 Mg (Pmx)) 100 ml @ 100 mls/hr Q8 IVPB Last administered on 11/16/16at 07:08; Admin Dose 100 MLS/HR; Start 11/13/16 at 14: 00; Stop 11/16/16 at 13:59 Hydromorphone HCl (Dilaudid) 1 mg Q1H PRN IV SEVERE PAIN Last administered on 11/16/16at 11:14; Admin Dose 1 MG; Start 11/13/16 at 14:00 Hydromorphone HCl 0.5 mg 0.5 mg Q1H PRN IV MODERATE PAIN LEVEL 4-6; Start at 14:00 Potassium Cl/ Dextrose/Lact Ringer's (D5-Lr + KCl 20 Meq) 1,000 ml @ 100 mls/ hr Q10H IV Last administered on 11/16/16at 12:22; Admin Dose 100 MLS/HR; Start 11/13/16 at 14:30 MORALES PEREIRA MD Nov 16, 2016 13:43
[2016-11-16] MEDS: ALBUTEROL 0.5% (NEB) 2.5 MG/0.5 ML AMP HHN PRN (17:39)
[2016-11-16 20:00] VITALS: BP 99/53; PULSE 101; RESP 16
[2016-11-17] MEDS: HYDROmorphONE 1 MG/ML SYG IV PRN ×9 (01:09→22:15)
[2016-11-17] MEDS: D5-LR + KCL 20 MEQ 1,000 ML IV SCH ×2 (04:44→08:30)
[2016-11-17] MEDS: PANTOPRAZOLE (EC) 40 MG TAB PO SCH (05:31)
[2016-11-17 05:39] LABS: BASOPHILS % 0.4 % (0.0-2.0); EOSINOPHILS # 0.4 10^3/ul (0.0-0.5); EOSINOPHILS % 6.4 % (0.0-7.0); HEMATOCRIT 28.4 % (37.0-47.0); HEMOGLOBIN 9.7 g/dl (12.0-16.0); LYMPHOCYTES # 1.6 10^3/ul (0.8-2.9); LYMPHOCYTES % 25.3 % (15.0-51.0); MEAN CORPUSCULAR HEMOGLOBIN 30.4 pg (29.0-33.0); MEAN CORPUSCULAR VOLUME 89.4 fl (82.0-101.0); MEAN PLATELET VOLUME 8.4 fl (7.4-10.4); MONOCYTE # 0.4 10^3/ul (0.3-0.9); MONOCYTES % 7.1 % (0.0-11.0); NEUTROPHIL # 3.8 10^3/ul (1.6-7.5); NEUTROPHILS % 60.8 % (39.0-77.0); PLATELET COUNT 184 10^3/UL (140-440); RED BLOOD COUNT 3.18 10^6/ul (4.20-5.40); RED CELL DISTRIBUTION WIDTH 12.9 % (11.5-14.5); UNCORRECTED WBC 6.3 10^3/ul (4.8-10.8); WHITE BLOOD COUNT 6.3 10^3/ul (4.8-10.8)
[2016-11-17 05:52] LABS: POTASSIUM 3.8 mmol/L (3.5-5.1)
[2016-11-17 05:54] LABS: CREATININE 0.42 mg/dl (0.44-1.00)
[2016-11-17 05:55] LABS: CALCIUM 8.1 mg/dl (8.4-10.2)
[2016-11-17 06:15] LABS: CONDITION 1
[2016-11-17 08:11] VITALS: BP 109/51; PULSE 95; RESP 18
[2016-11-17] MEDS ORDERED: TPN 1,000 ML IV SCH ×2 (11:30→18:00)
[2016-11-17] MEDS ORDERED: LIDOCAINE 1% (MDV) 20 ML INJ SC ONE (11:30)
--- NOTE | 2016-11-17 12:17 | PN ---
Date/Time of Note Date/Time of Note DATE: 11/17/16 TIME: 12:15 Assessment/Plan VTE Prophylaxis VTE Prophylaxis Intervention: SCD's Lines/Catheters IV Catheter Type (from Nrsg): Peripheral IV Urinary Cath still in place: Yes Reason Cath still needed: other (indicate) Assessment/Plan Chief Complaint/Hosp Course ASSESSMENT AND PLAN: 1. Large ovarian mass. SHIFT PRODUCTION ASSOCIATE has been consulted. Status post BSO and sigmoid resection and anastomosis Follow PHARMACIST TECHNICIAN oncology recommendations Continue postop care as per PHARMACIST TECHNICIAN oncologist, continue pain medication, n.p.o. , NG tube, continue use of incentive spirometry, encourage ambulation Plan to start TPN today 2. Peritoneal carcinomatosis, most pronounced within the lower abdomen and pelvis from an uncertain primary with [id number] volume of ascites, likely malignant in nature. PHARMACIST TECHNICIAN oncology consulted oncology work up postoperatively as per PHARMACIST TECHNICIAN oncologist Follow-up pathology 3. Anemia, type and cross and transfuse 1 unit of packed red blood cells, stable, follow CBC in a.m. 4. Deep venous thrombosis prophylaxis, on SCD. 5. Gastrointestinal prophylaxis, on Protonix. We will continue to monitor the patient closely. Further recommendation, management and treatment as per clinical course. Problems: Subjective 24 Hr Interval Summary Free Text/Dictation Patient states that the pain is more bearable and is better controlled with pain medication Denies of any chest pain or shortness of breath NG tube in place No flatus or bowel movement Exam/Review of Systems Vital Signs Vitals Vital Signs Date Time Temp Pulse Resp B/P Pulse Ox O2 Delivery O2 Flow Rate FiO2 11/17/16 08:30 Nasal Cannula 2.0 11/17/16 08:11 98.3 95 18 109/51 96 Intake and Output 11/16/16 11/16/16 11/17/16 15:00 23:00 07:00 Intake Total 825 ml 1100 ml 650 ml Output Total 100 ml 1975 ml 1145 ml Balance 725 ml -875 ml -495 ml Exam General: The patient is well-developed, Not in acute distress. NG tube in place HEENT: Atraumatic, normocephalic. The pupils are equal and round . Neck: Supple with full range of motion. Chest: Normal expansion of the thorax during inspiration Lungs: Clear to auscultation bilaterally Heart: Normal S1-S2, Regular rhythm and rate. Abdomen: Soft , nontender, nondistended , bowel sounds are present. Surgical site is dry and clean Extremities: Normal to inspection, no edema no cyanosis Neurologic: Normal mental status,The patient is awake, alert and oriented . Results Result Diagram: 11/17/16 0433 11/17/16 0500 Results 24 hrs Laboratory Tests Test 11/17/16 04:33 11/17/16 05:00 Basophils # 0.0 Basophils % 0.4 Eosinophils # 0.4 Eosinophils % 6.4 Hematocrit 28.4 L Hemoglobin 9.7 L Lymphocytes # 1.6 Lymphocytes % 25.3 Mean Corpuscular Hemoglobin 30.4 Mean Corpuscular Hemoglobin Concent 34.0 Mean Corpuscular Volume 89.4 Mean Platelet Volume 8.4 Monocytes # 0.4 Monocytes % 7.1 Neutrophils # 3.8 Neutrophils % 60.8 Nucleated Red Blood Cells # 0.0 Nucleated Red Blood Cells % 0.0 Platelet Count 184 Red Blood Count 3.18 L Red Cell Distribution Width 12.9 White Blood Count 6.3 # Anion Gap 10 Blood Urea Nitrogen 4 L Calcium Level 8.1 L Carbon Dioxide Level 31 Chloride Level 105 Creatinine 0.42 L Glucose Level 102 Potassium Level 3.8 Sodium Level 142 Medications Medications Current Medications Ondansetron HCl (Zofran Inj) 4 mg Q6H PRN IV NAUSEA AND/OR VOMITING; Start at 17:00 Acetaminophen (Tylenol Tab) 650 mg Q6H PRN PO PAIN LEVEL 1-3 OR FEVER; Start 11/10/16 at 17:00 Acetaminophen (Tylenol Supp) 650 mg Q6H PRN [place] PAIN LEVEL 1-3 OR FEVER; Start 11/10/16 at 17:00 Bisacodyl (Dulcolax Supp) 10 mg DAILY PRN [place] CONSTIPATION; Start 11/10/16 at 17:00 Zolpidem Tartrate (Ambien) 5 mg QHS PRN PO SLEEP; Start 11/10/16 at 17:00 Pantoprazole (Protonix Tab) 40 mg DAILY@06 PO Last administered on 11/12/16at 06:46; Admin Dose 40 MG; Start 11/11/16 at 06:00 Hydromorphone HCl (Dilaudid) 1 mg Q1H PRN IV SEVERE PAIN Last administered on 11/17/16at 11:57; Admin Dose 1 MG; Start 11/13/16 at 14:00 Hydromorphone HCl 0.5 mg 0.5 mg Q1H PRN IV MODERATE PAIN LEVEL 4-6; Start at 14:00 Potassium Cl/ Dextrose/Lact Ringer's 1,000 ml @ 100 mls/hr Q10H IV Last administered on 11/17/16at 08:30; Admin Dose 100 MLS/HR; Start 11/13/16 at 14: 30 Total Parenteral Nutrition (Tpn) 1,000 ml @ 100 mls/hr Q10H IV ; Start at 11:30; Status MORALES OBRIEN MD Nov 17, 2016 12:17
--- NOTE | 2016-11-17 17:09 | RADRPT ---
PROCEDURE: XR Chest. CLINICAL INDICATION: PICC line placement TECHNIQUE: Chest AP portable. COMPARISON: 11/13/2016 FINDINGS: Right arm PICC line with tip in the right atrium (pullback 2 cm). Nasogastric tube in the stomach. The mediastinal structures are unremarkable. The heart is normal in size and configuration. The pu lmonary vascularity is normal. There are normal lung volume. There is a new RLL patchy consolidati on / subsegmental atelectasis. The pleural spaces are unremarkable. The axial skeleton is unremark able. IMPRESSION: Right arm PICC line with tip in right atrium (pullback 2 cm) New RLL patchy consolidation / subsegmental atelectasis (query pneumonia) RPTAT: HGDB .Naeem Royal MD, Date Time Electronically viewed and signed by .Naeem Royal MD, on 11/17/2016 17:09 .B/
[2016-11-17] MEDS ORDERED: FAT EMULSION 20% 250 ML IV SCH (18:00)
[2016-11-17] MEDS ORDERED: ACCUCHECK XX SCH (18:00)
[2016-11-17] MEDS ORDERED: SOD CHLORIDE 0.9% 100 ML ONE (18:51)
[2016-11-17 20:00] VITALS: BP 111/59; PULSE 96; RESP 20
[2016-11-17] MEDS: FAT EMULSION 20% 250 ML IV SCH (20:33)
[2016-11-17] MEDS: TPN 1,000 ML IV SCH (20:33)
[2016-11-17] MEDS: ACCUCHECK XX SCH (20:48)
--- NOTE | 2016-11-17 21:57 | RADRPT ---
PROCEDURE: US guidance for PICC line CLINICAL INDICATION: PICC line placement TECHNIQUE: Multiple real-time images were acquired of the patient's arm utilizing a high resolutio n transducer. This was performed by the PICC line nurse for venous access. COMPARISON: None FINDINGS: Ultrasound guidance for PICC line placement. IMPRESSION: Ultrasound guidance for PICC line placement. RPTAT: AA .Sravan Noriega MD, MD Date Time Electronically viewed and signed by .Sravan Noriega MD, on 11/17/2016 21:56 .S/
[2016-11-18] MEDS: HYDROmorphONE 1 MG/ML SYG IV PRN ×9 (01:11→22:19)
[2016-11-18] MEDS: ACCUCHECK XX SCH ×4 (02:00→21:56)
--- NOTE | 2016-11-18 02:37 | RADRPT ---
PROCEDURE: XR Chest. CLINICAL INDICATION: PICC line placement TECHNIQUE: Portable single view of the chest COMPARISON: 11/17 FINDINGS: The right-sided PICC line appears to have been pulled back slightly and the tip is now likely in the proximal superior vena cava. Nasogastric tube remains in place. A small of fluid remains in the m inor fissure and medial right base subsegmental atelectasis is again seen. Mild cardiomegaly. No o vert congestive heart failure. No pleural effusion. IMPRESSION: Right PICC line with tip now likely in the superior vena cava. Otherwise stable exam. RPTAT: [facility]BE Physician Abby Date Time Electronically viewed and signed by Belia Deluca Physician on 11/18/2016 02:36 CARYN/
--- NOTE | 2016-11-18 02:38 | RADRPT ---
PROCEDURE: XR Chest. CLINICAL INDICATION: PICC line placement TECHNIQUE: Portable single view of the chest COMPARISON: 11/17 FINDINGS: Since the prior study, the right PICC line has been retracted slightly and the tip is now likely in the proximal right atrium. A small of fluid remains in the minor fissure. Cardiomegaly and reduced lung volumes again seen. Nasogastric tube remains in place. IMPRESSION: PICC line now in the proximal right atrium. RPTAT: HLBE Physician Abby Date Time Electronically viewed and signed by Belia Deluca Physician on 11/18/2016 02:37 LE/
[2016-11-18] MEDS: ALBUTEROL 0.5% (NEB) 2.5 MG/0.5 ML AMP HHN PRN (05:38)
[2016-11-18] MEDS: PANTOPRAZOLE (EC) 40 MG TAB PO SCH (05:41)
[2016-11-18 07:20] VITALS: BP 112/65; PULSE 107; RESP 20
[2016-11-18 07:58] LABS: BASOPHILS % 0.5 % (0.0-2.0); EOSINOPHILS # 0.3 10^3/ul (0.0-0.5); EOSINOPHILS % 5.9 % (0.0-7.0); LYMPHOCYTES # 0.5 10^3/ul (0.8-2.9); LYMPHOCYTES % 8.5 % (15.0-51.0); MEAN CORPUSCULAR HGB CONC 34.1 g/dl (32.0-37.0); MEAN PLATELET VOLUME 10.3 fl (7.4-10.4); MONOCYTE # 0.4 10^3/ul (0.3-0.9); MONOCYTES % 7.4 % (0.0-11.0); NEUTROPHIL # 4.2 10^3/ul (1.6-7.5); NEUTROPHILS % 77.7 % (39.0-77.0); RED BLOOD COUNT 2.86 10^6/ul (4.20-5.40); RED CELL DISTRIBUTION WIDTH 12.9 % (11.5-14.5); UNCORRECTED WBC 5.4 10^3/ul (4.8-10.8)
[2016-11-18 07:59] LABS: CONDITION 1; PLATELET COUNT 212 10^3/UL (140-440); WHITE BLOOD COUNT 5.7 10^3/ul (4.8-10.8)
[2016-11-18 08:00] LABS: HEMOGLOBIN 8.9 g/dl (12.0-16.0)
[2016-11-18] MEDS: TPN 1,000 ML IV SCH ×2 (08:45→21:01)
--- NOTE | 2016-11-18 11:29 | PN ---
Date/Time of Note Date/Time of Note DATE: 11/18/16 TIME: 11:27 Assessment/Plan VTE Prophylaxis VTE Prophylaxis Intervention: other Lines/Catheters IV [facility] Type [facility]from [facility]): PICC Line Central line still needed: Yes Urinary Cath still in place: Yes Reason Cath still needed: urinary retention Assessment/Plan Problems: (1) Aftercare following surgery for cancer or tumor Status: Acute Comment: Final pathology is pending. For the time being she is starting to mobilize herself. She is being supported with TPN. As her GI tract wakes up we can take out the NG tube which will help her personal comfort enormously. Once we are able to then start getting some nutrition into her through the mouth we can discontinue the TPN. I expect this will get better as she is mobilized and moving. With her cough and then a check a chest x-ray adult although I do not believe we have an issue Subjective 24 Hr Interval Summary Free Text/Dictation Patient ambulating with physical therapy. She complains of discomfort from the NG tube Constitutional: no complaints (No fevers chills or sweats) ENT: other (Developing some rhinorrhea) Respiratory: cough (Recent onset of cough) Cardiovascular: no complaints Gastrointestinal: flatus (She thinks she might be starting to have some flatus) , pain Genitourinary: no complaints Neurologic: no complaints Exam/Review of Systems Vital Signs Vitals Vital Signs Date Time Temp Pulse Resp B/P Pulse Ox O2 Delivery O2 Flow Rate FiO2 11/18/16 05:38 90 18 98 Nasal Cannula 2.0 11/17/16 20:00 98.8 111/59 Intake and Output 11/17/16 11/17/16 11/18/16 15:00 23:00 07:00 Intake Total 350 ml 1000 ml 840 ml Output Total 1580 ml 1460 ml Balance 350 ml -580 ml -620 ml Exam Constitutional: alert, oriented Respiratory: clear to auscultation, normal air movement Cardiovascular: nl pulses, regular rate and rhythm Gastrointestinal: nl liver, spleen, non-tender, soft Results Result Diagram: 11/18/16 0515 11/17/16 0500 Results 24 hrs Laboratory Tests Test 11/17/16 19:59 11/18/16 02:30 11/18/16 05:15 11/18/16 08:13 Bedside Glucose 91 140 125 Basophils # 0.0 Basophils % 0.5 Blood Morphology Comment Eosinophils # 0.3 Eosinophils % 5.9 Hematocrit 26.0 L Hemoglobin 8.9 L Lymphocytes # 0.5 L Lymphocytes % 8.5 L Mean Corpuscular Hemoglobin 31.0 Mean Corpuscular Hemoglobin Concent 34.1 Mean Corpuscular Volume 91.0 Mean Platelet Volume 10.3 # Monocytes # 0.4 Monocytes % 7.4 Neutrophils # 4.2 Neutrophils % 77.7 H Nucleated Red Blood Cells # 0.0 Nucleated Red Blood Cells % 0.0 Platelet Count 212 Red Blood Count 2.86 L Red Cell Distribution Width 12.9 White Blood Count 5.7 Medications Medications Current Medications Ondansetron HCl (Zofran Inj) 4 mg Q6H PRN IV NAUSEA AND/OR VOMITING; Start at 17:00 Acetaminophen (Tylenol Tab) 650 mg Q6H PRN PO PAIN LEVEL 1-3 OR FEVER; Start 11/10/16 at 17:00 Acetaminophen (Tylenol Supp) 650 mg Q6H PRN [place] PAIN LEVEL 1-3 OR FEVER; Start 11/10/16 at 17:00 Bisacodyl (Dulcolax Supp) 10 mg DAILY PRN [place] CONSTIPATION; Start 11/10/16 at 17:00 Zolpidem Tartrate (Ambien) 5 mg QHS PRN PO SLEEP; Start 11/10/16 at 17:00 Pantoprazole (Protonix Tab) 40 mg DAILY@06 PO Last administered on 11/12/16at 06:46; Admin Dose 40 MG; Start 11/11/16 at 06:00 Hydromorphone HCl (Dilaudid) 1 mg Q1H PRN IV SEVERE PAIN Last administered on 11/18/16at 09:10; Admin Dose 1 MG; Start 11/13/16 at 14:00 Hydromorphone HCl 0.5 mg 0.5 mg Q1H PRN IV MODERATE PAIN LEVEL 4-6; Start at 14:00 Total Parenteral Nutrition (Tpn) 1,000 ml @ 80 mls/hr [id number] IV Last administered on 11/18/16at 08:45; Admin Dose 80 MLS/HR; Start 11/17/16 at 20:00 Diagnostic Test (Pha) (Accucheck) 1 ea Q6H XX Last administered on 11/18/16at 08:43; Admin Dose 1 EA; Start 11/17/16 at 20:00; Stop 11/18/16 at 14:01 Diagnostic Test (Pha) 1 ea 1 ea Q12 XX ; Start 11/18/16 at 21:00 Fat Emulsion Intravenous (Liposyn Ii 20%) 250 ml @ 20.833 mls/ hr DAILY@20 IV Last administered on 11/17/16at 20:33; Admin Dose 20.833 MLS/HR; Start at 20:00 IV Flush (NS 10 ml) 10 ml PRN PRN IV IV PROTOCOL; Start 11/17/16 at 18:30 SKYLER VILLEDA MD Nov 18, 2016 11:29
[2016-11-18 12:44] LABS: ALBUMIN 3.3 g/dl (3.3-4.9)
[2016-11-18 12:45] LABS: POTASSIUM 3.9 mmol/L (3.5-5.1)
[2016-11-18 12:47] LABS: ALBUMIN/GLOBULIN RATIO 0.97; BILIRUBIN,INDIRECT 0.2 mg/dl (0-1.1); BILIRUBIN,TOTAL 0.2 mg/dl (0.2-1.3); CREATININE 0.38 mg/dl (0.44-1.00); MAGNESIUM 2.3 mg/dl (1.7-2.5); PHOSPHORUS 4.7 mg/dl (2.5-4.9); TOTAL PROTEIN 6.7 g/dl (6.1-8.1)
[2016-11-18 12:48] LABS: CALCIUM 8.6 mg/dl (8.4-10.2)
[2016-11-18 12:54] LABS: PREALBUMIN 12.9 mg/dl (17.6-36.0)
--- NOTE | 2016-11-18 13:11 | RADRPT ---
PROCEDURE: XR Chest. CLINICAL INDICATION: Cough TECHNIQUE: Anterior chest x-ray. COMPARISON: 11/17/2016 FINDINGS: Right-sided PICC line demonstrates stable position, terminating in the superior vena cava. Nasogastric tube demonstrates stable position, terminating in the body of the stomach. The lungs are clear. No pleural effusion identified. There is no evidence of pneumothorax. The cardiomediastinal silhouette is unremarkable. The soft tissues are normal. Osseous structures are unremarkable. IMPRESSION: 1. No acute disease is seen in the chest. No significant change from previous exam. RPTAT: QQ .Jelani Ross MD, MD Date Time Electronically viewed and signed by .Jelani Ross MD, MD on 11/18/2016 13:11 .M/
--- NOTE | 2016-11-18 16:41 | PN ---
Date/Time of Note Date/Time of Note DATE: 11/18/16 TIME: 16:32 Assessment/Plan VTE Prophylaxis VTE Prophylaxis Intervention: SCD's Lines/Catheters IV Catheter Type (from Nrs): PICC Line Urinary Cath still in place: Yes Assessment/Plan Chief Complaint/Hosp Course Pelvic pain, elevated CA-125, Pelvic mass Problems: Assessment/Plan A- doing well overall P- encouraged to mobilize. Will probably remove NGT tomorrow and advance diet gradually. Will ask on Sunday to have path reviewed at [facility] by Dr. Arroyo as final dx. very important. 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 Hence, critical to know whether completely debulked IIIc LMP vs LMP with invasive component vs grade 1. Subjective 24 Hr Interval Summary Free Text/Dictation S- Feels better overall and ambulating more. + flatus small amount. O- resp- clear cvs- NSR abd- soft mild pain. incision clean ext NT no edema A- doing well overall P- encouraged to mobilize. Will probably remove NGT tomorrow and advance diet gradually. Will ask on Sunday to have path reviewed at [facility] by Dr. Arroyo as final dx. very important. 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 Hence, critical to know whether completely debulked IIIc LMP vs LMP with invasive component vs grade 1. Exam/Review of Systems Vital Signs Vitals Vital Signs Date Time Temp Pulse Resp B/P Pulse Ox O2 Delivery O2 Flow Rate FiO2 11/18/16 07:20 99.1 107 20 112/65 97 Room Air 11/18/16 05:38 2.0 Intake and Output 11/17/16 11/17/16 11/18/16 15:00 23:00 07:00 Intake Total 350 ml 1000 ml 840 ml Output Total 1580 ml 1460 ml Balance 350 ml -580 ml -620 ml Results Result Diagram: 11/18/16 0515 11/18/16 1155 Results 24 hrs Laboratory Tests Test 11/17/16 19:59 11/18/16 02:30 11/18/16 05:15 11/18/16 08:13 Bedside Glucose 91 140 125 Basophils # 0.0 Basophils % 0.5 Blood Morphology Comment Eosinophils # 0.3 Eosinophils % 5.9 Hematocrit 26.0 L Hemoglobin 8.9 L Lymphocytes # 0.5 L Lymphocytes % 8.5 L Mean Corpuscular Hemoglobin 31.0 Mean Corpuscular Hemoglobin Concent 34.1 Mean Corpuscular Volume 91.0 Mean Platelet Volume 10.3 # Monocytes # 0.4 Monocytes % 7.4 Neutrophils # 4.2 Neutrophils % 77.7 H Nucleated Red Blood Cells # 0.0 Nucleated Red Blood Cells % 0.0 Platelet Count 212 Red Blood Count 2.86 L Red Cell Distribution Width 12.9 White Blood Count 5.7 Test 11/18/16 11:55 11/18/16 13:51 Alanine Aminotransferase (ALT/SGPT) 27 Albumin 3.3 Albumin/Globulin Ratio 0.97 Alkaline Phosphatase 51 Anion Gap 17 #H Aspartate Amino Transf (AST/SGOT) 17 Blood Urea Nitrogen 10 Calcium Level 8.6 Carbon Dioxide Level 27 Chloride Level 103 Creatinine 0.38 L Direct Bilirubin 0.00 Globulin 3.40 H Glucose Level 120 Indirect Bilirubin 0.2 Magnesium Level 2.3 Phosphorus Level 4.7 Potassium Level 3.9 Prealbumin 12.9 L Sodium Level 143 Total Bilirubin 0.2 Total Protein 6.7 Triglycerides Level 81 Bedside Glucose 115 Medications Medications Current Medications Ondansetron HCl (Zofran Inj) 4 mg Q6H PRN IV NAUSEA AND/OR VOMITING; Start at 17:00 Acetaminophen (Tylenol Tab) 650 mg Q6H PRN PO PAIN LEVEL 1-3 OR FEVER; Start 11/10/16 at 17:00 Acetaminophen (Tylenol Supp) 650 mg Q6H PRN [place] PAIN LEVEL 1-3 OR FEVER; Start 11/10/16 at 17:00 Bisacodyl (Dulcolax Supp) 10 mg DAILY PRN [place] CONSTIPATION; Start 11/10/16 at 17:00 Zolpidem Tartrate (Ambien) 5 mg QHS PRN PO SLEEP; Start 11/10/16 at 17:00 Pantoprazole (Protonix Tab) 40 mg DAILY@06 PO Last administered on 11/12/16at 06:46; Admin Dose 40 MG; Start 11/11/16 at 06:00 Hydromorphone HCl (Dilaudid) 1 mg Q1H PRN IV SEVERE PAIN Last administered on 11/18/16at 13:47; Admin Dose 1 MG; Start 11/13/16 at 14:00 Hydromorphone HCl 0.5 mg 0.5 mg Q1H PRN IV MODERATE PAIN LEVEL 4-6; Start at 14:00 Total Parenteral Nutrition (Tpn) 1,000 ml @ 80 mls/hr [id number] IV Last administered on 11/18/16at 08:45; Admin Dose 80 MLS/HR; Start 11/17/16 at 20:00 Diagnostic Test (Pha) 1 ea 1 ea Q12 XX ; Start 11/18/16 at 21:00 Fat Emulsion Intravenous (Liposyn Ii 20%) 250 ml @ 20.833 mls/ hr DAILY@20 IV Last administered on 11/17/16at 20:33; Admin Dose 20.833 MLS/HR; Start at 20:00 IV Flush (NS 10 ml) 10 ml PRN PRN IV IV PROTOCOL; Start 11/17/16 at 18:30 MATT BARON MD Nov 18, 2016 16:41
[2016-11-18 19:47] VITALS: BP 110/64; PULSE 89; RESP 18
[2016-11-18] MEDS ORDERED: ACCUCHECK XX SCH (21:00)
[2016-11-18] MEDS: FAT EMULSION 20% 250 ML IV SCH (22:19)
[2016-11-19] MEDS: HYDROmorphONE 1 MG/ML SYG IV PRN ×9 (01:00→22:31)
[2016-11-19] MEDS: PANTOPRAZOLE (EC) 40 MG TAB PO SCH (05:32)
[2016-11-19 06:22] LABS: POTASSIUM 3.5 mmol/L (3.5-5.1)
[2016-11-19 06:24] LABS: CREATININE 0.37 mg/dl (0.44-1.00)
[2016-11-19 06:25] LABS: PHOSPHORUS 4.4 mg/dl (2.5-4.9)
[2016-11-19 06:26] LABS: CALCIUM 8.4 mg/dl (8.4-10.2); MAGNESIUM 2.2 mg/dl (1.7-2.5)
[2016-11-19 08:15] VITALS: BP 113/60; RESP 20
[2016-11-19] MEDS: TPN 1,000 ML IV SCH ×2 (09:33→22:34)
[2016-11-19] MEDS: ACCUCHECK XX SCH ×2 (09:33→21:00)
--- NOTE | 2016-11-19 10:12 | PN ---
Date/Time of Note Date/Time of Note DATE: 11/19/16 TIME: 10:09 Assessment/Plan VTE Prophylaxis VTE Prophylaxis Intervention: SCD's Lines/Catheters IV [facility]from [facility]): PICC Line Central line still needed: Yes Urinary Cath still in place: Yes Reason Cath still needed: other (indicate) Assessment/Plan Problems: (1) Aftercare following surgery for cancer or tumor Status: Acute Comment: Please see the dictation from the gynecologic oncologist which is most eloquent. At this point the patient is progressing nicely postoperatively. She should be able to have her NG tube removed today and start on a clear liquid diet. If she tolerates that the TPN can be turned off and she can be advanced as appropriate. Further planning about the need for chemotherapy or not is as per the expert in the field. Subjective 24 Hr Interval Summary Free Text/Dictation Patient complains of discomfort from the NG tube. She reports that Dr. Hayward is the one who corrects this Respiratory: no complaints Cardiovascular: no complaints Gastrointestinal: no complaints Exam/Review of Systems Vital Signs Vitals Vital Signs Date Time Temp Pulse Resp B/P Pulse Ox O2 Delivery O2 Flow Rate FiO2 11/19/16 08:15 97.6 104 20 113/60 96 11/18/16 19:47 Room Air 11/18/16 05:38 2.0 Intake and Output 11/18/16 11/18/16 11/19/16 15:00 23:00 07:00 Intake Total 320 ml 1090 ml 750 ml Output Total 870 ml 775 ml Balance 320 ml 220 ml -25 ml Exam Constitutional: alert, oriented Respiratory: clear to auscultation Cardiovascular: nl pulses, regular rate and rhythm Gastrointestinal: bowel sounds (Bowel sounds are active patient is passing gas) , nl liver, spleen, non-tender, soft Results Result Diagram: 11/18/16 0515 11/19/16 0520 Results 24 hrs Laboratory Tests Test 11/18/16 11:55 11/18/16 13:51 11/18/16 21:12 11/19/16 05:20 Alanine Aminotransferase (ALT/SGPT) 27 Albumin 3.3 Albumin/Globulin Ratio 0.97 Alkaline Phosphatase 51 Anion Gap 17 #H 14 Aspartate Amino Transf (AST/SGOT) 17 Blood Urea Nitrogen 10 13 Calcium Level 8.6 8.4 Carbon Dioxide Level 27 29 Chloride Level 103 102 Creatinine 0.38 L 0.37 L Direct Bilirubin 0.00 Globulin 3.40 H Glucose Level 120 104 Indirect Bilirubin 0.2 Magnesium Level 2.3 2.2 Phosphorus Level 4.7 4.4 Potassium Level 3.9 3.5 Prealbumin 12.9 L Sodium Level 143 141 Total Bilirubin 0.2 Total Protein 6.7 Triglycerides Level 81 Bedside Glucose 115 99 Test 11/19/16 07:58 Bedside Glucose 119 Medications Medications Current Medications Ondansetron HCl (Zofran Inj) 4 mg Q6H PRN IV NAUSEA AND/OR VOMITING; Start at 17:00 Acetaminophen (Tylenol Tab) 650 mg Q6H PRN PO PAIN LEVEL 1-3 OR FEVER; Start 11/10/16 at 17:00 Acetaminophen (Tylenol Supp) 650 mg Q6H PRN [place] PAIN LEVEL 1-3 OR FEVER; Start 11/10/16 at 17:00 Bisacodyl (Dulcolax Supp) 10 mg DAILY PRN [place] CONSTIPATION; Start 11/10/16 at 17:00 Zolpidem Tartrate (Ambien) 5 mg QHS PRN PO SLEEP; Start 11/10/16 at 17:00 Pantoprazole (Protonix Tab) 40 mg DAILY@06 PO Last administered on 11/12/16at 06:46; Admin Dose 40 MG; Start 11/11/16 at 06:00 Hydromorphone HCl (Dilaudid) 1 mg Q1H PRN IV SEVERE PAIN Last administered on 07:49; Admin Dose 1 MG; Start 11/13/16 at 14:00 Hydromorphone HCl 0.5 mg 0.5 mg Q1H PRN IV MODERATE PAIN LEVEL 4-6; Start at 14:00 Total Parenteral Nutrition (Tpn) 1,000 ml @ 80 mls/hr [id number] IV Last administered on 11/19/16 09:33; Admin Dose 80 MLS/HR; Start 11/17/16 at 20:00 Diagnostic Test (Pha) 1 ea 1 ea Q12 XX Last administered on 11/19/16 09:33; Admin Dose 1 EA; Start 11/18/16 at 21:00 Fat Emulsion Intravenous (Liposyn Ii 20%) 250 ml @ 20.833 mls/ hr DAILY@20 IV Last administered on 11/18/16at 22:19; Admin Dose 20.833 MLS/HR; Start at 20:00 IV Flush (NS 10 ml) 10 ml PRN PRN IV IV PROTOCOL; Start 11/17/16 at 18:30 SKYLER VILLEDA MD Nov 19, 2016 10:12
--- NOTE | 2016-11-19 15:11 | PN ---
Date/Time of Note Date/Time of Note DATE: 11/19/16 TIME: 15:04 Assessment/Plan VTE Prophylaxis VTE Prophylaxis Intervention: SCD's Lines/Catheters IV [facility] (from [facility]): PICC Line Urinary Cath still in place: Yes Assessment/Plan Chief Complaint/Hosp Course Pelvic pain, elevated CA-125, Pelvic mass Problems: Assessment/Plan A- doing well overall P- encouraged to mobilize. Will remove NGT and advance diet gradually. Must maintain TPN until tolerating soft diet an certain no problems. To reiterate; if completely debulked IIIc LMP can probably defer chemo, vs LMP with invasive component (3-4 cycles Carbo/Taxol) vs grade 1(6 cycles Carbo/Taxol). Was already sent to [place] but second opinion at [facility] more experienced. Will arrange. Subjective 24 Hr Interval Summary Free Text/Dictation S- Feels better overall and ambulating more. + flatus O- resp- clear cvs- NSR abd- soft mild pain. incision clean ext NT no edema A- doing well overall P- encouraged to mobilize. Will remove NGT and advance diet gradually. Must maintain TPN until tolerating soft diet an certain no problems. To reiterate; if completely debulked IIIc LMP can probably defer chemo, vs LMP with invasive component (3-4 cycles Carbo/Taxol) vs grade 1(6 cycles Carbo/Taxol). Was already sent to [place] but second opinion at [facility] more experienced. Will arrange. Exam/Review of Systems Vital Signs Vitals Vital Signs Date Time Temp Pulse Resp B/P Pulse Ox O2 Delivery O2 Flow Rate FiO2 11/19/16 08:15 97.6 104 20 113/60 96 11/18/16 19:47 Room Air 11/18/16 05:38 2.0 Intake and Output 11/18/16 11/18/16 11/19/16 15:00 23:00 07:00 Intake Total 320 ml 1090 ml 750 ml Output Total 870 ml 775 ml Balance 320 ml 220 ml -25 ml Results Result Diagram: 11/18/16 0515 11/19/16 0520 Results 24 hrs Laboratory Tests Test 11/18/16 21:12 11/19/16 05:20 11/19/16 07:58 Bedside Glucose 99 119 Anion Gap 14 Blood Urea Nitrogen 13 Calcium Level 8.4 Carbon Dioxide Level 29 Chloride Level 102 Creatinine 0.37 L Glucose Level 104 Magnesium Level 2.2 Phosphorus Level 4.4 Potassium Level 3.5 Sodium Level 141 Medications Medications Current Medications Ondansetron HCl (Zofran Inj) 4 mg Q6H PRN IV NAUSEA AND/OR VOMITING; Start at 17:00 Acetaminophen (Tylenol Tab) 650 mg Q6H PRN PO PAIN LEVEL 1-3 OR FEVER; Start 11/10/16 at 17:00 Acetaminophen (Tylenol Supp) 650 mg Q6H PRN [place] PAIN LEVEL 1-3 OR FEVER; Start 11/10/16 at 17:00 Bisacodyl (Dulcolax Supp) 10 mg DAILY PRN [place] CONSTIPATION; Start 11/10/16 at 17:00 Zolpidem Tartrate (Ambien) 5 mg QHS PRN PO SLEEP; Start 11/10/16 at 17:00 Pantoprazole (Protonix Tab) 40 mg DAILY@06 PO Last administered on 11/12/16at 06:46; Admin Dose 40 MG; Start 11/11/16 at 06:00 Hydromorphone HCl (Dilaudid) 1 mg Q1H PRN IV SEVERE PAIN Last administered on 13:27; Admin Dose 1 MG; Start 11/13/16 at 14:00 Hydromorphone HCl 0.5 mg 0.5 mg Q1H PRN IV MODERATE PAIN LEVEL 4-6; Start at 14:00 Total Parenteral Nutrition (Tpn) 1,000 ml @ 80 mls/hr [id number] IV Last administered on 11/19/16 09:33; Admin Dose 80 MLS/HR; Start 11/17/16 at 20:00 Diagnostic Test (Pha) 1 ea 1 ea Q12 XX Last administered on 11/19/16 09:33; Admin Dose 1 EA; Start 11/18/16 at 21:00 Fat Emulsion Intravenous (Liposyn Ii 20%) 250 ml @ 20.833 mls/ hr DAILY@20 IV Last administered on 11/18/16at 22:19; Admin Dose 20.833 MLS/HR; Start at 20:00 IV Flush (NS 10 ml) 10 ml PRN PRN IV IV PROTOCOL; Start 12/30/16 at 18:30 MATT BARON MD Nov 19, 2016 15:11
[2016-11-19 20:00] VITALS: BP 114/72; RESP 20
[2016-11-19] MEDS: FAT EMULSION 20% 250 ML IV SCH (20:59)
[2016-11-20] MEDS: HYDROmorphONE 1 MG/ML SYG IV PRN ×8 (00:47→23:36)
[2016-11-20] MEDS: PANTOPRAZOLE (EC) 40 MG TAB PO SCH (06:00)
[2016-11-20 07:35] VITALS: BP 99/58; RESP 16
[2016-11-20 08:30] VITALS: BP 102/60; PULSE 79
[2016-11-20] MEDS: ACCUCHECK XX SCH ×2 (09:48→21:05)
[2016-11-20] MEDS: TPN 1,000 ML IV SCH ×2 (10:52→23:37)
--- NOTE | 2016-11-20 14:56 | PN ---
Date/Time of Note Date/Time of Note DATE: 11/20/16 TIME: 14:53 Assessment/Plan VTE Prophylaxis VTE Prophylaxis Intervention: SCD's Lines/Catheters IV Catheter Type (from Nrs): PICC Line Central line still needed: Yes Urinary Cath still in place: Yes Reason Cath still needed: other (indicate) Assessment/Plan Assessment/Plan 1. Large ovarian mass. ROLLER STAINER has been consulted. Status post BSO and sigmoid resection and anastomosis Follow PARKING METER ATTENDANT oncology recommendations Cont TPN f/u final pathology result 2. 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 PARKING METER ATTENDANT oncology consulted oncology work up postoperatively as per PARKING METER ATTENDANT oncologist Follow-up pathology 3. Anemia, type and cross and transfuse 1 unit of packed red blood cells, stable, follow CBC in a.m. 4. Deep venous thrombosis prophylaxis, on SCD. 5. Gastrointestinal prophylaxis, on Protonix. We will continue to monitor the patient closely. Further recommendation, management and treatment as per clinical course. Subjective 24 Hr Interval Summary Free Text/Dictation no acute events overnight Exam/Review of Systems Vital Signs Vitals Vital Signs Date Time Temp Pulse Resp B/P Pulse Ox O2 Delivery O2 Flow Rate FiO2 11/20/16 08:30 79 102/60 11/20/16 07:35 98.2 16 99 11/18/16 19:47 Room Air 11/18/16 05:38 2.0 Intake and Output 11/19/16 11/19/16 11/20/16 15:00 23:00 07:00 Intake Total 370 ml 640 ml 920 ml Output Total 1015 ml 715 ml Balance 370 ml -375 ml 205 ml Exam General: The patient is well-developed, Not in acute distress. NG tube in place HEENT: Atraumatic, normocephalic. The pupils are equal and round . Neck: Supple with full range of motion. Chest: Normal expansion of the thorax during inspiration Lungs: Clear to auscultation bilaterally Heart: Normal S1-S2, Regular rhythm and rate. Abdomen: Soft , nontender, nondistended , bowel sounds are present. Surgical site is dry and clean Extremities: Normal to inspection, no edema no cyanosis Neurologic: Normal mental status,The patient is awake, alert and oriented . Results Result Diagram: 11/18/16 0515 11/19/16 0520 Results 24 hrs Laboratory Tests Test 11/19/16 17:30 11/19/16 22:51 11/20/16 09:48 Bedside Glucose 103 103 121 Medications Medications Current Medications Ondansetron HCl (Zofran Inj) 4 mg Q6H PRN IV NAUSEA AND/OR VOMITING; Start at 17:00 Acetaminophen (Tylenol Tab) 650 mg Q6H PRN PO PAIN LEVEL 1-3 OR FEVER; Start 11/10/16 at 17:00 Acetaminophen (Tylenol Supp) 650 mg Q6H PRN [place] PAIN LEVEL 1-3 OR FEVER; Start 11/10/16 at 17:00 Bisacodyl (Dulcolax Supp) 10 mg DAILY PRN [place] CONSTIPATION; Start 11/10/16 at 17:00 Zolpidem Tartrate (Ambien) 5 mg QHS PRN PO SLEEP; Start 11/10/16 at 17:00 Pantoprazole (Protonix Tab) 40 mg DAILY@06 PO Last administered on 11/12/16at 06:46; Admin Dose 40 MG; Start 11/11/16 at 06:00 Hydromorphone HCl (Dilaudid) 1 mg Q1H PRN IV SEVERE PAIN Last administered on 04:27; Admin Dose 1 MG; Start 11/13/16 at 14:00 Hydromorphone HCl 0.5 mg 0.5 mg Q1H PRN IV MODERATE PAIN LEVEL 4-6 Last administered on 11/20/16 14:07; Admin Dose 0.5 MG; Start 11/13/16 at 14:00 Total Parenteral Nutrition (Tpn) 1,000 ml @ 80 mls/hr [id number] IV Last administered on 11/20/16 10:52; Admin Dose 80 MLS/HR; Start 11/17/16 at 20:00 Diagnostic Test (Pha) 1 ea 1 ea Q12 XX Last administered on 11/20/16 09:48; Admin Dose 1 EA; Start 11/18/16 at 21:00 Fat Emulsion Intravenous (Liposyn Ii 20%) 250 ml @ 20.833 mls/ hr DAILY@20 IV Last administered on 11/19/16 20:59; Admin Dose 20.833 MLS/HR; Start 11/17/16 at 20:00 IV Flush (NS 10 ml) 10 ml PRN PRN IV IV PROTOCOL; Start 11/17/16 at 18:30 JEFF BUSBY MD Nov 20, 2016 14:55 JEFF BUSBY MD Nov 20, 2016 14:55
--- NOTE | 2016-11-20 17:30 | PN ---
Date/Time of Note Date/Time of Note DATE: 11/20/16 TIME: 17:27 Assessment/Plan VTE Prophylaxis VTE Prophylaxis Intervention: SCD's Lines/Catheters IV Catheter Type (from Nrs): PICC Line Urinary Cath still in place: Yes Assessment/Plan Chief Complaint/Hosp Course Pelvic pain, elevated CA-125, Pelvic mass Problems: Assessment/Plan A- doing well overall P- encouraged to mobilize. Will advance diet gradually; full liq tomorrow. Must maintain TPN until tolerating soft diet an certain no problems. Subjective 24 Hr Interval Summary Free Text/Dictation S- Feels better overall and ambulating more. + flatus O- resp- clear cvs- NSR abd- soft mild pain. incision clean ext NT no edema A- doing well overall P- encouraged to mobilize. Will advance diet gradually; full liq tomorrow. Must maintain TPN until tolerating soft diet an certain no problems. Exam/Review of Systems Vital Signs Vitals Vital Signs Date Time Temp Pulse Resp B/P Pulse Ox O2 Delivery O2 Flow Rate FiO2 11/20/16 08:30 79 102/60 11/20/16 07:35 98.2 16 99 11/18/16 19:47 Room Air 11/18/16 05:38 2.0 Intake and Output 11/19/16 11/19/16 11/20/16 15:00 23:00 07:00 Intake Total 370 ml 640 ml 920 ml Output Total 1015 ml 715 ml Balance 370 ml -375 ml 205 ml Results Result Diagram: 11/18/16 0515 11/19/16 0520 Results 24 hrs Laboratory Tests Test 11/19/16 17:30 11/19/16 22:51 11/20/16 09:48 Bedside Glucose 103 103 121 Medications Medications Current Medications Ondansetron HCl (Zofran Inj) 4 mg Q6H PRN IV NAUSEA AND/OR VOMITING; Start at 17:00 Acetaminophen (Tylenol Tab) 650 mg Q6H PRN PO PAIN LEVEL 1-3 OR FEVER; Start 11/10/16 at 17:00 Acetaminophen (Tylenol Supp) 650 mg Q6H PRN [place] PAIN LEVEL 1-3 OR FEVER; Start 11/10/16 at 17:00 Bisacodyl (Dulcolax Supp) 10 mg DAILY PRN [place] CONSTIPATION; Start 11/10/16 at 17:00 Zolpidem Tartrate (Ambien) 5 mg QHS PRN PO SLEEP; Start 11/10/16 at 17:00 Pantoprazole (Protonix Tab) 40 mg DAILY@06 PO Last administered on 11/12/16at 06:46; Admin Dose 40 MG; Start 11/11/16 at 06:00 Hydromorphone HCl (Dilaudid) 1 mg Q1H PRN IV SEVERE PAIN Last administered on 04:27; Admin Dose 1 MG; Start 11/13/16 at 14:00 Hydromorphone HCl 0.5 mg 0.5 mg Q1H PRN IV MODERATE PAIN LEVEL 4-6 Last administered on 11/20/16 17:04; Admin Dose 0.5 MG; Start 11/13/16 at 14:00 Total Parenteral Nutrition (Tpn) 1,000 ml @ 80 mls/hr [id number] IV Last administered on 11/20/16 10:52; Admin Dose 80 MLS/HR; Start 11/17/16 at 20:00 Diagnostic Test (Pha) 1 ea 1 ea Q12 XX Last administered on 11/20/16 09:48; Admin Dose 1 EA; Start 11/18/16 at 21:00 Fat Emulsion Intravenous (Liposyn Ii 20%) 250 ml @ 20.833 mls/ hr DAILY@20 IV Last administered on 11/19/16 20:59; Admin Dose 20.833 MLS/HR; Start 11/17/16 at 20:00 IV Flush (NS 10 ml) 10 ml PRN PRN IV IV PROTOCOL; Start 11/17/16 at 18:30 MATT BARON MD Nov 20, 2016 17:30
[2016-11-20 19:20] VITALS: BP 102/57; RESP 20
[2016-11-20 19:38] VITALS: BP 116/67; RESP 20
[2016-11-20] MEDS: FAT EMULSION 20% 250 ML IV SCH (20:52)
[2016-11-21 01:09] VITALS: BP 98/56; PULSE 86; RESP 18
[2016-11-21] MEDS: HYDROmorphONE 1 MG/ML SYG IV PRN ×6 (01:38→20:05)
[2016-11-21] MEDS: PANTOPRAZOLE (EC) 40 MG TAB PO SCH (05:03)
[2016-11-21 05:41] LABS: POTASSIUM 3.7 mmol/L (3.5-5.1)
[2016-11-21 05:44] LABS: CREATININE 0.37 mg/dl (0.44-1.00)
[2016-11-21 05:45] LABS: CALCIUM 8.4 mg/dl (8.4-10.2); PHOSPHORUS 4.9 mg/dl (2.5-4.9)
[2016-11-21 07:09] VITALS: BP 95/54; RESP 18
[2016-11-21] MEDS: ACCUCHECK XX SCH ×2 (08:30→21:00)
[2016-11-21 08:50] LABS: BASOPHILS % 0.7 % (0.0-2.0); EOSINOPHILS # 0.4 10^3/ul (0.0-0.5); EOSINOPHILS % 5.6 % (0.0-7.0); HEMATOCRIT 30.2 % (37.0-47.0); HEMOGLOBIN 10.3 g/dl (12.0-16.0); LYMPHOCYTES # 1.6 10^3/ul (0.8-2.9); LYMPHOCYTES % 24.6 % (15.0-51.0); MEAN CORPUSCULAR HEMOGLOBIN 30.9 pg (29.0-33.0); MEAN CORPUSCULAR HGB CONC 34.1 g/dl (32.0-37.0); MEAN CORPUSCULAR VOLUME 90.6 fl (82.0-101.0); MEAN PLATELET VOLUME 8.5 fl (7.4-10.4); MONOCYTE # 0.5 10^3/ul (0.3-0.9); MONOCYTES % 8.2 % (0.0-11.0); NEUTROPHILS % 60.9 % (39.0-77.0); PLATELET COUNT 257 10^3/UL (140-440); RED BLOOD COUNT 3.34 10^6/ul (4.20-5.40); UNCORRECTED WBC 6.5 10^3/ul (4.8-10.8); WHITE BLOOD COUNT 6.5 10^3/ul (4.8-10.8)
[2016-11-21 08:57] LABS: CONDITION 1
[2016-11-21] MEDS ORDERED: HYDROmorphONE 1 MG/ML SYG IV PRN ×3 (11:00→12:00)
[2016-11-21] MEDS: TPN 1,000 ML IV SCH (11:51)
--- NOTE | 2016-11-21 14:42 | PN ---
Date/Time of Note Date/Time of Note DATE: 11/21/16 TIME: 14:40 Assessment/Plan VTE Prophylaxis VTE Prophylaxis Intervention: SCD's Lines/Catheters IV Catheter Type (from Nrsg): PICC Line Central line still needed: Yes Urinary Cath still in place: Yes Reason Cath still needed: other (indicate) Assessment/Plan Assessment/Plan 1. Large ovarian mass. SURVEY RESEARCH MANAGER has been consulted. Status post BSO and sigmoid resection and anastomosis Follow NEWBORN PHOTOGRAPHER oncology recommendations Cont TPN f/u final pathology result 2. Anemia: transfuse PRN Deep venous thrombosis prophylaxis, on SCD. Gastrointestinal prophylaxis, on Protonix. Subjective 24 Hr Interval Summary Free Text/Dictation c/o right sided abd pain Exam/Review of Systems Vital Signs Vitals Vital Signs Date Time Temp Pulse Resp B/P Pulse Ox O2 Delivery O2 Flow Rate FiO2 11/21/16 07:09 98.4 88 18 95/54 98 11/18/16 19:47 Room Air 11/18/16 05:38 2.0 Intake and Output 11/20/16 11/20/16 11/21/16 14:59 22:59 06:59 Intake Total 1200 ml 1310 ml 1500 ml Output Total 15 ml 1320 ml 1210 ml Balance 1185 ml -10 ml 290 ml Exam General: The patient is well-developed, Not in acute distress. NG tube in place HEENT: Atraumatic, normocephalic. The pupils are equal and round . Neck: Supple with full range of motion. Chest: Normal expansion of the thorax during inspiration Lungs: Clear to auscultation bilaterally Heart: Normal S1-S2, Regular rhythm and rate. Abdomen: Soft , nontender, nondistended , bowel sounds are present. Surgical site is dry and clean Extremities: Normal to inspection, no edema no cyanosis Neurologic: Normal mental status,The patient is awake, alert and oriented . Results Result Diagram: 11/21/16 0450 11/21/16 0450 Results 24 hrs Laboratory Tests Test 11/20/16 20:54 11/21/16 04:50 11/21/16 08:13 Bedside Glucose 100 110 Anion Gap 14 Basophils # 0.0 Basophils % 0.7 Blood Urea Nitrogen 11 Calcium Level 8.4 Carbon Dioxide Level 27 Chloride Level 105 Creatinine 0.37 L Eosinophils # 0.4 Eosinophils % 5.6 Glucose Level 91 Hematocrit 30.2 L Hemoglobin 10.3 L Lymphocytes # 1.6 Lymphocytes % 24.6 Magnesium Level 2.0 Mean Corpuscular Hemoglobin 30.9 Mean Corpuscular Hemoglobin Concent 34.1 Mean Corpuscular Volume 90.6 Mean Platelet Volume 8.5 Monocytes # 0.5 Monocytes % 8.2 Neutrophils # 4.0 Neutrophils % 60.9 Nucleated Red Blood Cells # 0.0 Nucleated Red Blood Cells % 0.0 Phosphorus Level 4.9 Platelet Count 257 # Potassium Level 3.7 Red Blood Count 3.34 L Red Cell Distribution Width 13.0 Sodium Level 142 White Blood Count 6.5 Medications Medications Current Medications Ondansetron HCl (Zofran Inj) 4 mg Q6H PRN IV NAUSEA AND/OR VOMITING; Start at 17:00 Acetaminophen (Tylenol Tab) 650 mg Q6H PRN PO PAIN LEVEL 1-3 OR FEVER; Start 11/10/16 at 17:00 Acetaminophen (Tylenol Supp) 650 mg Q6H PRN [place] PAIN LEVEL 1-3 OR FEVER; Start 11/10/16 at 17:00 Bisacodyl (Dulcolax Supp) 10 mg DAILY PRN [place] CONSTIPATION; Start 11/10/16 at 17:00 Zolpidem Tartrate (Ambien) 5 mg QHS PRN PO SLEEP; Start 11/10/16 at 17:00 Pantoprazole 40 mg 40 mg DAILY@06 PO Last administered on 11/21/16 05:03; Admin Dose 40 MG; Start 11/11/16 at 06:00 Total Parenteral Nutrition (Tpn) 1,000 ml @ 80 mls/hr [id number] IV Last administered on 11/21/16 11:51; Admin Dose 80 MLS/HR; Start 11/17/16 at 20:00 Diagnostic Test (Pha) 1 ea 1 ea Q12 XX Last administered on 11/21/16 08:30; Admin Dose 1 EA; Start 11/18/16 at 21:00 Fat Emulsion Intravenous (Liposyn Ii 20%) 250 ml @ 20.833 mls/ hr DAILY@20 IV Last administered on 11/20/16 20:52; Admin Dose 20.833 MLS/HR; Start 11/17/16 at 20:00 IV Flush (NS 10 ml) 10 ml PRN PRN IV IV PROTOCOL; Start 11/17/16 at 18:30 Acetaminophen/ Hydrocodone Bitart ([place] (5/325)) 1 tab Q6H PRN PO MODERATE PAIN LEVEL 4-6; Start 11/21/16 at 09:00 Hydromorphone HCl (Dilaudid) 1 mg Q4H PRN IV SEVERE PAIN Last administered on t 10:47; Admin Dose 1 MG; Start 11/21/16 at 10:41 Hydromorphone HCl (Dilaudid) 0.5 mg Q4H PRN IV MODERATE PAIN LEVEL 4-6; Start 11/21/16 at 10:41 JEFF BUSBY MD Nov 21, 2016 14:42
[2016-11-21 19:00] VITALS: BP 98/57; RESP 18
[2016-11-21] MEDS: FAT EMULSION 20% 250 ML IV SCH (20:12)
[2016-11-22] MEDS: HYDROmorphONE 1 MG/ML SYG IV PRN ×5 (00:25→23:03)
[2016-11-22] MEDS: TPN 1,000 ML IV SCH ×2 (00:25→13:48)
[2016-11-22] MEDS: PANTOPRAZOLE (EC) 40 MG TAB PO SCH (05:32)
[2016-11-22 07:56] VITALS: BP 89/54; RESP 18
[2016-11-22] MEDS: ACCUCHECK XX SCH ×2 (08:14→20:36)
--- NOTE | 2016-11-22 11:32 | PN ---
Date/Time of Note Date/Time of Note DATE: 11/22/16 TIME: 11:29 Assessment/Plan VTE Prophylaxis VTE Prophylaxis Intervention: SCD's Lines/Catheters IV Catheter Type (from Nrsg): PICC Line Urinary Cath still in place: Yes Assessment/Plan Chief Complaint/Hosp Course Pelvic pain, elevated CA-125, Pelvic mass Problems: Assessment/Plan A- doing well overall P- encouraged to mobilize. Explained importance of tapering narcotics. Will advance diet to soft tomorrow and anticipate discharge possibly Sunday. Subjective 24 Hr Interval Summary Free Text/Dictation S- Feels better overall and ambulating more, but surprisingly with assistance. + flatus O- resp- clear cvs- NSR abd- soft mild pain. incision clean ext NT no edema A- doing well overall P- encouraged to mobilize. Explained importance of tapering narcotics. Will advance diet to soft tomorrow and anticipate discharge possibly Sunday. Exam/Review of Systems Vital Signs Vitals Vital Signs Date Time Temp Pulse Resp B/P Pulse Ox O2 Delivery O2 Flow Rate FiO2 11/22/16 07:56 97.9 79 18 89/54 98 11/18/16 19:47 Room Air Intake and Output 11/21/16 11/21/16 11/22/16 15:00 23:00 07:00 Intake Total 1580 ml 1507 ml Output Total 2000 ml 2020 ml Balance -420 ml -513 ml Results Result Diagram: 11/21/16 0450 11/21/16 0450 Results 24 hrs Laboratory Tests Test 11/21/16 20:22 11/22/16 07:56 Bedside Glucose 94 110 Medications Medications Current Medications Ondansetron HCl (Zofran Inj) 4 mg Q6H PRN IV NAUSEA AND/OR VOMITING; Start at 17:00 Acetaminophen (Tylenol Tab) 650 mg Q6H PRN PO PAIN LEVEL 1-3 OR FEVER; Start 11/10/16 at 17:00 Acetaminophen (Tylenol Supp) 650 mg Q6H PRN [place] PAIN LEVEL 1-3 OR FEVER; Start 11/10/16 at 17:00 Bisacodyl (Dulcolax Supp) 10 mg DAILY PRN [place] CONSTIPATION; Start 11/10/16 at 17:00 Zolpidem Tartrate (Ambien) 5 mg QHS PRN PO SLEEP; Start 11/10/16 at 17:00 Pantoprazole 40 mg 40 mg DAILY@06 PO Last administered on 11/22/16 05:32; Admin Dose 40 MG; Start 11/11/16 at 06:00 Total Parenteral Nutrition (Tpn) 1,000 ml @ 80 mls/hr [id number] IV Last administered on 11/22/16 00:25; Admin Dose 80 MLS/HR; Start 11/17/16 at 20:00 Diagnostic Test (Pha) 1 ea 1 ea Q12 XX Last administered on 11/22/16 08:14; Admin Dose 1 EA; Start 11/18/16 at 21:00 Fat Emulsion Intravenous (Liposyn Ii 20%) 250 ml @ 20.833 mls/ hr DAILY@20 IV Last administered on 11/21/16 20:12; Admin Dose 20.833 MLS/HR; Start 11/17/16 at 20:00 IV Flush (NS 10 ml) 10 ml PRN PRN IV IV PROTOCOL; Start 11/17/16 at 18:30 Acetaminophen/ Hydrocodone Bitart ([place] (5/325)) 1 tab Q6H PRN PO MODERATE PAIN LEVEL 4-6; Start 11/21/16 at 09:00 Hydromorphone HCl (Dilaudid) 1 mg Q4H PRN IV SEVERE PAIN Last administered on 10:15; Admin Dose 1 MG; Start 11/21/16 at 10:41 Hydromorphone HCl (Dilaudid) 0.5 mg Q4H PRN IV MODERATE PAIN LEVEL 4-6; Start 11/21/16 at 10:41 MATT BARON MD Nov 22, 2016 11:32
[2016-11-22] MEDS: KETOROLAC 30 MG INJ IV SCH ×2 (12:00→17:42)
--- NOTE | 2016-11-22 13:21 | PN ---
Date/Time of Note Date/Time of Note DATE: 11/22/16 TIME: 13:20 Assessment/Plan VTE Prophylaxis VTE Prophylaxis Intervention: SCD's Lines/Catheters IV Catheter Type (from Nrsg): PICC Line Central line still needed: Yes Urinary Cath still in place: Yes Reason Cath still needed: other (indicate) Assessment/Plan Assessment/Plan 1. Large ovarian mass. CHIEF COMPRESSOR STATION ENGINEER has been consulted. Status post BSO and sigmoid resection and anastomosis Follow CHECK EXAMINER oncology recommendations Cont TPN f/u final pathology result 2. Anemia: transfuse PRN Deep venous thrombosis prophylaxis, on SCD. Gastrointestinal prophylaxis, on Protonix. Subjective 24 Hr Interval Summary Free Text/Dictation c/o intermittent abd pain Exam/Review of Systems Vital Signs Vitals Vital Signs Date Time Temp Pulse Resp B/P Pulse Ox O2 Delivery O2 Flow Rate FiO2 11/22/16 12:23 98 2.0 28 11/22/16 12:23 92 20 Nasal Cannula 11/22/16 07:56 97.9 89/54 Intake and Output 11/21/16 11/21/16 11/22/16 15:00 23:00 07:00 Intake Total 1580 ml 1507 ml Output Total 2000 ml 2020 ml Balance -420 ml -513 ml Exam General: The patient is well-developed, Not in acute distress. NG tube in place HEENT: Atraumatic, normocephalic. The pupils are equal and round . Neck: Supple with full range of motion. Chest: Normal expansion of the thorax during inspiration Lungs: Clear to auscultation bilaterally Heart: Normal S1-S2, Regular rhythm and rate. Abdomen: Soft , nontender, nondistended , bowel sounds are present. Surgical site is dry and clean Extremities: Normal to inspection, no edema no cyanosis Neurologic: Normal mental status,The patient is awake, alert and oriented . Results Result Diagram: 11/21/16 0450 11/21/16 0450 Results 24 hrs Laboratory Tests Test 11/21/16 20:22 11/22/16 07:56 Bedside Glucose 94 110 Medications Medications Current Medications Ondansetron HCl (Zofran Inj) 4 mg Q6H PRN IV NAUSEA AND/OR VOMITING; Start at 17:00 Acetaminophen (Tylenol Tab) 650 mg Q6H PRN PO PAIN LEVEL 1-3 OR FEVER; Start 11/10/16 at 17:00 Acetaminophen (Tylenol Supp) 650 mg Q6H PRN [place] PAIN LEVEL 1-3 OR FEVER; Start 11/10/16 at 17:00 Bisacodyl (Dulcolax Supp) 10 mg DAILY PRN [place] CONSTIPATION; Start 11/10/16 at 17:00 Zolpidem Tartrate (Ambien) 5 mg QHS PRN PO SLEEP; Start 11/10/16 at 17:00 Pantoprazole 40 mg 40 mg DAILY@06 PO Last administered on 11/22/16 05:32; Admin Dose 40 MG; Start 11/11/16 at 06:00 Total Parenteral Nutrition (Tpn) 1,000 ml @ 80 mls/hr [id number] IV Last administered on 11/22/16 00:25; Admin Dose 80 MLS/HR; Start 11/17/16 at 20:00; Stop 11/23/16 at 06:00 Diagnostic Test (Pha) 1 ea 1 ea Q12 XX Last administered on 11/22/16 08:14; Admin Dose 1 EA; Start 11/18/16 at 21:00; Stop 11/23/16 at 10:00 Fat Emulsion Intravenous (Liposyn Ii 20%) 250 ml @ 20.833 mls/ hr DAILY@20 IV Last administered on 11/21/16 20:12; Admin Dose 20.833 MLS/HR; Start 11/17/16 at 20:00; Stop 11/23/16 at 06:00 IV Flush (NS 10 ml) 10 ml PRN PRN IV IV PROTOCOL; Start 11/17/16 at 18:30 Acetaminophen/ Hydrocodone Bitart ([place] (5/325)) 1 tab Q6H PRN PO MODERATE PAIN LEVEL 4-6; Start 11/21/16 at 09:00 Hydromorphone HCl (Dilaudid) 0.5 mg Q4H PRN IV MODERATE PAIN LEVEL 4-6; Start 11/21/16 at 10:41; Stop 11/23/16 at 08:00 Ketorolac Tromethamine 30 mg 30 mg Q6H IV Last administered on 11/22/16 12:00; Admin Dose 30 MG; Start 11/22/16 at 12:00; Stop 11/24/16 at 12:00 Potassium Cl/ Dextrose/Lact Ringer's (D5-Lr + KCl 20 Meq) 1,000 ml @ 40 mls/hr Q24H IV ; Start 11/23/16 at 06:00 JEFF BUSBY MD Nov 22, 2016 13:21
[2016-11-22] MEDS ORDERED: LACTATED RINGER'S 250 ML IV ONE (13:30)
--- NOTE | 2016-11-22 19:19 | PN ---
Date/Time of Note Date/Time of Note DATE: 11/22/16 TIME: 19:19 Assessment/Plan VTE Prophylaxis VTE Prophylaxis Intervention: SCD's Lines/Catheters IV Catheter Type (from Nrsg): PICC Line Central line still needed: Yes Urinary Cath still in place: Yes Reason Cath still needed: other (indicate) Assessment/Plan Assessment/Plan 1. Large ovarian mass. GROUND SCHOOL INSTRUCTOR has been consulted. Status post BSO and sigmoid resection and anastomosis Follow REINSURANCE CLAIM ANALYST oncology recommendations Cont TPN f/u final pathology result 2. Anemia: transfuse PRN Deep venous thrombosis prophylaxis, on SCD. Gastrointestinal prophylaxis, on Protonix. Exam/Review of Systems Vital Signs Vitals Vital Signs Date Time Temp Pulse Resp B/P Pulse Ox O2 Delivery O2 Flow Rate FiO2 11/22/16 17:56 2.0 28 11/22/16 12:23 98 11/22/16 12:23 92 20 Nasal Cannula 11/22/16 07:56 97.9 89/54 Intake and Output 11/21/16 11/21/16 11/22/16 15:00 23:00 07:00 Intake Total 1580 ml 1507 ml Output Total 2000 ml 2020 ml Balance -420 ml -513 ml Exam General: The patient is well-developed, Not in acute distress. NG tube in place HEENT: Atraumatic, normocephalic. The pupils are equal and round . Neck: Supple with full range of motion. Chest: Normal expansion of the thorax during inspiration Lungs: Clear to auscultation bilaterally Heart: Normal S1-S2, Regular rhythm and rate. Abdomen: Soft , nontender, nondistended , bowel sounds are present. Surgical site is dry and clean Extremities: Normal to inspection, no edema no cyanosis Neurologic: Normal mental status,The patient is awake, alert and oriented . Results Result Diagram: 11/21/16 0450 11/21/16 0450 Results 24 hrs Laboratory Tests Test 11/21/16 20:22 11/22/16 07:56 Bedside Glucose 94 110 Medications Medications Current Medications Ondansetron HCl (Zofran Inj) 4 mg Q6H PRN IV NAUSEA AND/OR VOMITING; Start at 17:00 Acetaminophen (Tylenol Tab) 650 mg Q6H PRN PO PAIN LEVEL 1-3 OR FEVER; Start 11/10/16 at 17:00 Acetaminophen (Tylenol Supp) 650 mg Q6H PRN [place] PAIN LEVEL 1-3 OR FEVER; Start 11/10/16 at 17:00 Bisacodyl (Dulcolax Supp) 10 mg DAILY PRN [place] CONSTIPATION; Start 11/10/16 at 17:00 Zolpidem Tartrate (Ambien) 5 mg QHS PRN PO SLEEP; Start 11/10/16 at 17:00 Pantoprazole 40 mg 40 mg DAILY@06 PO Last administered on 11/22/16 05:32; Admin Dose 40 MG; Start 11/11/16 at 06:00 Total Parenteral Nutrition (Tpn) 1,000 ml @ 80 mls/hr [id number] IV Last administered on 11/22/16 13:48; Admin Dose 80 MLS/HR; Start 11/17/16 at 20:00; Stop 11/23/16 at 06:00 Diagnostic Test (Pha) 1 ea 1 ea Q12 XX Last administered on 11/22/16 08:14; Admin Dose 1 EA; Start 11/18/16 at 21:00; Stop 11/23/16 at 10:00 Fat Emulsion Intravenous (Liposyn Ii 20%) 250 ml @ 20.833 mls/ hr DAILY@20 IV Last administered on 11/21/16 20:12; Admin Dose 20.833 MLS/HR; Start 11/17/16 at 20:00; Stop 11/23/16 at 06:00 IV Flush (NS 10 ml) 10 ml PRN PRN IV IV PROTOCOL; Start 11/17/16 at 18:30 Acetaminophen/ Hydrocodone Bitart ([place] (5/325)) 1 tab Q6H PRN PO MODERATE PAIN LEVEL 4-6; Start 11/21/16 at 09:00 Hydromorphone HCl (Dilaudid) 0.5 mg Q4H PRN IV MODERATE PAIN LEVEL 4-6 Last administered on 11/22/16 17:41; Admin Dose 0.5 MG; Start 11/21/16 at 10:41; Stop 11/23/16 at 08:00 Ketorolac Tromethamine 30 mg 30 mg Q6H IV Last administered on 11/22/16 12:00; Admin Dose 30 MG; Start 11/22/16 at 12:00; Stop 11/24/16 at 12:00 Potassium Cl/ Dextrose/Lact Ringer's (D5-Lr + KCl 20 Meq) 1,000 ml @ 40 mls/hr Q24H IV ; Start 11/23/16 at 06:00 JEFF BUSBY MD Nov 22, 2016 19:19
[2016-11-22 20:00] VITALS: BP 107/51; PULSE 86; RESP 18
[2016-11-22] MEDS: FAT EMULSION 20% 250 ML IV SCH (20:36)
[2016-11-22] MEDS: ALBUTEROL 0.5% (NEB) 2.5 MG/0.5 ML AMP HHN PRN (23:39)
[2016-11-23] MEDS: TPN 1,000 ML IV SCH (01:00)
[2016-11-23] MEDS: HYDROmorphONE 1 MG/ML SYG IV PRN (02:33)
[2016-11-23 05:29] LABS: BASOPHILS % 0.5 % (0.0-2.0); EOSINOPHILS # 0.3 10^3/ul (0.0-0.5); EOSINOPHILS % 4.8 % (0.0-7.0); HEMATOCRIT 30.2 % (37.0-47.0); HEMOGLOBIN 10.5 g/dl (12.0-16.0); LYMPHOCYTES # 1.5 10^3/ul (0.8-2.9); LYMPHOCYTES % 21.2 % (15.0-51.0); MEAN CORPUSCULAR HEMOGLOBIN 31.1 pg (29.0-33.0); MEAN CORPUSCULAR HGB CONC 34.7 g/dl (32.0-37.0); MEAN CORPUSCULAR VOLUME 89.6 fl (82.0-101.0); MEAN PLATELET VOLUME 8.8 fl (7.4-10.4); MONOCYTE # 0.4 10^3/ul (0.3-0.9); NEUTROPHIL # 4.6 10^3/ul (1.6-7.5); NEUTROPHILS % 67.5 % (39.0-77.0); PLATELET COUNT 282 10^3/UL (140-440); RED BLOOD COUNT 3.37 10^6/ul (4.20-5.40); RED CELL DISTRIBUTION WIDTH 12.9 % (11.5-14.5); UNCORRECTED WBC 6.9 10^3/ul (4.8-10.8); WHITE BLOOD COUNT 6.9 10^3/ul (4.8-10.8)
[2016-11-23 05:30] LABS: ALBUMIN 3.4 g/dl (3.3-4.9)
[2016-11-23] MEDS: PANTOPRAZOLE (EC) 40 MG TAB PO SCH (05:30)
[2016-11-23 05:31] LABS: CONDITION 1
[2016-11-23 05:32] LABS: CREATININE 0.38 mg/dl (0.44-1.00)
[2016-11-23 05:33] LABS: BILIRUBIN,INDIRECT 0.1 mg/dl (0-1.1); BILIRUBIN,TOTAL 0.1 mg/dl (0.2-1.3); CALCIUM 8.7 mg/dl (8.4-10.2); TOTAL PROTEIN 6.8 g/dl (6.1-8.1)
[2016-11-23] MEDS: KETOROLAC 30 MG INJ IV SCH ×4 (06:35→17:59)
[2016-11-23] MEDS: D5-LR + KCL 20 MEQ 1,000 ML IV SCH (06:36)
[2016-11-23 08:06] VITALS: BP_SYST 80; BP_SYST 88; BP_DIAS 48; BP_DIAS 49; RESP 18
[2016-11-23 08:34] VITALS: BP 96/47; PULSE 82
[2016-11-23] MEDS: ACCUCHECK XX SCH (09:26)
[2016-11-23] MEDS: HYDROCODONE/APAP (5/325) TAB PO PRN ×2 (11:01→20:48)
[2016-11-23 15:00] VITALS: BP 94/51; PULSE 81
--- NOTE | 2016-11-23 18:22 | PN ---
Date/Time of Note Date/Time of Note DATE: 11/23/16 TIME: 18:20 Assessment/Plan VTE Prophylaxis VTE Prophylaxis Intervention: SCD's Lines/Catheters IV Catheter Type (from Nrsg): PICC Line Central line still needed: Yes Urinary Cath still in place: Yes Reason Cath still needed: terminal illness/intractable pain Assessment/Plan Assessment/Plan 1. Large ovarian mass. Status post BSO and sigmoid resection and anastomosis Follow FORM WORKER oncology recommendations Cont TPN f/u final pathology result 2. Anemia: transfuse PRN 3. Constipation: bowel regimen. If no resolution, will check KUB to eval for ileus or obstruction Deep venous thrombosis prophylaxis, on SCD. Gastrointestinal prophylaxis, on Protonix. Subjective 24 Hr Interval Summary Free Text/Dictation c/o constipation Exam/Review of Systems Vital Signs Vitals Vital Signs Date Time Temp Pulse Resp B/P Pulse Ox O2 Delivery O2 Flow Rate FiO2 11/23/16 15:00 81 94/51 11/23/16 08:06 98.2 18 97 11/22/16 23:39 21 11/22/16 17:56 2.0 11/22/16 12:23 Nasal Cannula Intake and Output 11/22/16 11/22/16 11/23/16 15:00 23:00 07:00 Intake Total 1303 ml 1790 ml Output Total 1368 ml 1620 ml Balance -65 ml 170 ml Exam General: The patient is well-developed, Not in acute distress. NG tube in place HEENT: Atraumatic, normocephalic. The pupils are equal and round . Neck: Supple with full range of motion. Chest: Normal expansion of the thorax during inspiration Lungs: Clear to auscultation bilaterally Heart: Normal S1-S2, Regular rhythm and rate. Abdomen: Soft , nontender, nondistended , bowel sounds are present. Surgical site is dry and clean Extremities: Normal to inspection, no edema no cyanosis Neurologic: Normal mental status,The patient is awake, alert and oriented . Results Result Diagram: 11/23/16 0437 11/23/16 0437 Results 24 hrs Laboratory Tests Test 11/22/16 20:35 11/23/16 04:37 11/23/16 08:28 Bedside Glucose 92 97 Alanine Aminotransferase (ALT/SGPT) 78 H Albumin 3.4 Albumin/Globulin Ratio 1.00 Alkaline Phosphatase 85 Anion Gap 16 Aspartate Amino Transf (AST/SGOT) 35 Basophils # 0.0 Basophils % 0.5 Blood Urea Nitrogen 10 Calcium Level 8.7 Carbon Dioxide Level 27 Chloride Level 103 Creatinine 0.38 L Direct Bilirubin 0.00 Eosinophils # 0.3 Eosinophils % 4.8 Globulin 3.40 H Glucose Level 97 Hematocrit 30.2 L Hemoglobin 10.5 L Indirect Bilirubin 0.1 Lymphocytes # 1.5 Lymphocytes % 21.2 Mean Corpuscular Hemoglobin 31.1 Mean Corpuscular Hemoglobin Concent 34.7 Mean Corpuscular Volume 89.6 Mean Platelet Volume 8.8 Monocytes # 0.4 Monocytes % 6.0 Neutrophils # 4.6 Neutrophils % 67.5 Nucleated Red Blood Cells # 0.0 Nucleated Red Blood Cells % 0.0 Platelet Count 282 Potassium Level 4.0 Red Blood Count 3.37 L Red Cell Distribution Width 12.9 Sodium Level 142 Total Bilirubin 0.1 L Total Protein 6.8 White Blood Count 6.9 Medications Medications Current Medications Ondansetron HCl (Zofran Inj) 4 mg Q6H PRN IV NAUSEA AND/OR VOMITING; Start at 17:00 Acetaminophen (Tylenol Tab) 650 mg Q6H PRN PO PAIN LEVEL 1-3 OR FEVER; Start 11/10/16 at 17:00 Acetaminophen (Tylenol Supp) 650 mg Q6H PRN [place] PAIN LEVEL 1-3 OR FEVER; Start 11/10/16 at 17:00 Bisacodyl (Dulcolax Supp) 10 mg DAILY PRN [place] CONSTIPATION; Start 11/10/16 at 17:00 Zolpidem Tartrate (Ambien) 5 mg QHS PRN PO SLEEP; Start 11/10/16 at 17:00 Pantoprazole (Protonix Tab) 40 mg DAILY@06 PO Last administered on 11/23/16 05: 30; Admin Dose 40 MG; Start 11/11/16 at 06:00 IV Flush (NS 10 ml) 10 ml PRN PRN IV IV PROTOCOL; Start 11/17/16 at 18:30 Acetaminophen/ Hydrocodone Bitart ([place] (5/325)) 1 tab Q6H PRN PO MODERATE PAIN LEVEL 4-6 Last administered on 11/23/16 11:01; Admin Dose 1 TAB; Start 11/21 at 09:00 Ketorolac Tromethamine 30 mg 30 mg Q6H IV Last administered on 11/23/16 17:59; Admin Dose 30 MG; Start 11/22/16 at 12:00; Stop 11/24/16 at 12:00 Potassium Cl/ Dextrose/Lact Ringer's (D5-Lr + KCl 20 Meq) 1,000 ml @ 40 mls/hr Q24H IV Last administered on 11/23/16 06:36; Admin Dose 40 MLS/HR; Start at 06:00 JEFF BUSBY MD Nov 23, 2016 18:21
[2016-11-23] MEDS: SENNA TAB PO SCH (18:50)
--- NOTE | 2016-11-23 19:04 | PN ---
Date/Time of Note Date/Time of Note DATE: 11/23/16 TIME: 19:02 Assessment/Plan VTE Prophylaxis VTE Prophylaxis Intervention: SCD's Lines/Catheters IV Catheter Type (from Nrs): PICC Line Urinary Cath still in place: Yes Assessment/Plan Chief Complaint/Hosp Course Pelvic pain, elevated CA-125, Pelvic mass: IIIC LMP Problems: Assessment/Plan A- doing well overall P- Continue current Rx. Possible d/c tomorrow Subjective 24 Hr Interval Summary Free Text/Dictation S- Feels better overall and ambulating more. + flatus and + BM O- resp- clear cvs- NSR abd- soft mild pain. incision clean ext NT no edema A- doing well overall P- Continue current Rx. Possible d/c tomorrow Exam/Review of Systems Vital Signs Vitals Vital Signs Date Time Temp Pulse Resp B/P Pulse Ox O2 Delivery O2 Flow Rate FiO2 11/23/16 15:00 81 94/51 11/23/16 08:06 98.2 18 97 11/22/16 23:39 21 11/22/16 17:56 2.0 11/22/16 12:23 Nasal Cannula Intake and Output 11/22/16 11/22/16 11/23/16 15:00 23:00 07:00 Intake Total 1303 ml 1790 ml Output Total 1368 ml 1620 ml Balance -65 ml 170 ml Results Result Diagram: 11/23/16 0437 11/23/16 0437 Results 24 hrs Laboratory Tests Test 11/22/16 20:35 11/23/16 04:37 11/23/16 08:28 Bedside Glucose 92 97 Alanine Aminotransferase (ALT/SGPT) 78 H Albumin 3.4 Albumin/Globulin Ratio 1.00 Alkaline Phosphatase 85 Anion Gap 16 Aspartate Amino Transf (AST/SGOT) 35 Basophils # 0.0 Basophils % 0.5 Blood Urea Nitrogen 10 Calcium Level 8.7 Carbon Dioxide Level 27 Chloride Level 103 Creatinine 0.38 L Direct Bilirubin 0.00 Eosinophils # 0.3 Eosinophils % 4.8 Globulin 3.40 H Glucose Level 97 Hematocrit 30.2 L Hemoglobin 10.5 L Indirect Bilirubin 0.1 Lymphocytes # 1.5 Lymphocytes % 21.2 Mean Corpuscular Hemoglobin 31.1 Mean Corpuscular Hemoglobin Concent 34.7 Mean Corpuscular Volume 89.6 Mean Platelet Volume 8.8 Monocytes # 0.4 Monocytes % 6.0 Neutrophils # 4.6 Neutrophils % 67.5 Nucleated Red Blood Cells # 0.0 Nucleated Red Blood Cells % 0.0 Platelet Count 282 Potassium Level 4.0 Red Blood Count 3.37 L Red Cell Distribution Width 12.9 Sodium Level 142 Total Bilirubin 0.1 L Total Protein 6.8 White Blood Count 6.9 Medications Medications Current Medications Ondansetron HCl (Zofran Inj) 4 mg Q6H PRN IV NAUSEA AND/OR VOMITING; Start at 17:00 Acetaminophen (Tylenol Tab) 650 mg Q6H PRN PO PAIN LEVEL 1-3 OR FEVER; Start 11/10/16 at 17:00 Acetaminophen (Tylenol Supp) 650 mg Q6H PRN [place] PAIN LEVEL 1-3 OR FEVER; Start 11/10/16 at 17:00 Bisacodyl (Dulcolax Supp) 10 mg DAILY PRN [place] CONSTIPATION; Start 11/10/16 at 17:00 Zolpidem Tartrate (Ambien) 5 mg QHS PRN PO SLEEP; Start 11/10/16 at 17:00 Pantoprazole (Protonix Tab) 40 mg DAILY@06 PO Last administered on 11/23/16 05: 30; Admin Dose 40 MG; Start 11/11/16 at 06:00 IV Flush (NS 10 ml) 10 ml PRN PRN IV IV PROTOCOL; Start 11/17/16 at 18:30 Acetaminophen/ Hydrocodone Bitart ([place] (5/325)) 1 tab Q6H PRN PO MODERATE PAIN LEVEL 4-6 Last administered on 11/23/16 11:01; Admin Dose 1 TAB; Start 11/21 at 09:00 Ketorolac Tromethamine 30 mg 30 mg Q6H IV Last administered on 11/23/16 17:59; Admin Dose 30 MG; Start 11/22/16 at 12:00; Stop 11/24/16 at 12:00 Potassium Cl/ Dextrose/Lact Ringer's (D5-Lr + KCl 20 Meq) 1,000 ml @ 40 mls/hr Q24H IV Last administered on 11/23/16 06:36; Admin Dose 40 MLS/HR; Start at 06:00 Senna (Senokot) 2 tab DAILY PO Last administered on 11/23/16 18:50; Admin Dose 2 TAB; Start 11/23/16 at 18:30 MATT BARON MD Nov 23, 2016 19:04
[2016-11-23 19:23] VITALS: BP 90/54; RESP 14
[2016-11-24] MEDS: KETOROLAC 30 MG INJ IV SCH ×3 (00:08→12:51)
[2016-11-24] MEDS: PANTOPRAZOLE (EC) 40 MG TAB PO SCH (05:33)
[2016-11-24] MEDS: D5-LR + KCL 20 MEQ 1,000 ML IV SCH (05:39)
[2016-11-24 06:23] LABS: ALBUMIN 2.7 g/dl (3.3-4.9); POTASSIUM 3.5 mmol/L (3.5-5.1)
[2016-11-24 06:25] LABS: BASOPHILS % 0.6 % (0.0-2.0); BILIRUBIN,INDIRECT 0.1 mg/dl (0-1.1); BILIRUBIN,TOTAL 0.1 mg/dl (0.2-1.3); CREATININE 0.41 mg/dl (0.44-1.00); EOSINOPHILS # 0.2 10^3/ul (0.0-0.5); EOSINOPHILS % 4.4 % (0.0-7.0); HEMATOCRIT 25.4 % (37.0-47.0); HEMOGLOBIN 8.8 g/dl (12.0-16.0); LYMPHOCYTES # 1.2 10^3/ul (0.8-2.9); LYMPHOCYTES % 22.7 % (15.0-51.0); MEAN CORPUSCULAR HEMOGLOBIN 31.2 pg (29.0-33.0); MEAN CORPUSCULAR HGB CONC 34.8 g/dl (32.0-37.0); MEAN CORPUSCULAR VOLUME 89.6 fl (82.0-101.0); MEAN PLATELET VOLUME 8.6 fl (7.4-10.4); MONOCYTE # 0.4 10^3/ul (0.3-0.9); MONOCYTES % 6.6 % (0.0-11.0); NEUTROPHIL # 3.6 10^3/ul (1.6-7.5); NEUTROPHILS % 65.7 % (39.0-77.0); PLATELET COUNT 222 10^3/UL (140-440); RED BLOOD COUNT 2.83 10^6/ul (4.20-5.40); RED CELL DISTRIBUTION WIDTH 12.6 % (11.5-14.5); UNCORRECTED WBC 5.4 10^3/ul (4.8-10.8); WHITE BLOOD COUNT 5.4 10^3/ul (4.8-10.8)
[2016-11-24 06:26] LABS: ALBUMIN/GLOBULIN RATIO 0.93; CALCIUM 7.6 mg/dl (8.4-10.2); TOTAL PROTEIN 5.6 g/dl (6.1-8.1)
[2016-11-24 06:36] LABS: CONDITION 1
[2016-11-24 07:46] VITALS: BP 93/55; RESP 16
[2016-11-24] MEDS: SENNA TAB PO SCH (09:00)
[2016-11-24] MEDS: HYDROCODONE/APAP (5/325) TAB PO PRN (18:52)
[2016-11-24 19:00] VITALS: BP 95/55; RESP 16
[2016-11-24] MEDS: FAMOTIDINE 20 MG INJ IV SCH (20:52)
--- NOTE | 2016-11-24 23:09 | PN ---
Date/Time of Note Date/Time of Note DATE: 11/24/16 TIME: 23:08 Assessment/Plan VTE Prophylaxis VTE Prophylaxis Intervention: SCD's Lines/Catheters IV Catheter Type (from [facility]): PICC Line Urinary Cath still in place: No Assessment/Plan Chief Complaint/Hosp Course Pelvic pain, elevated CA-125, Pelvic mass: IIIC LMP Problems: Assessment/Plan A- doing well overall P- Continue current Rx. Transfuse and possible d/c tomorrow Subjective 24 Hr Interval Summary Free Text/Dictation S- Feels better overall and ambulating more but fatigued. + flatus and + BM O- resp- clear cvs- NSR abd- soft mild pain. incision clean ext NT no edema A- doing well overall P- Continue current Rx. Transfuse and possible d/c tomorrow Exam/Review of Systems Vital Signs Vitals Vital Signs Date Time Temp Pulse Resp B/P Pulse Ox O2 Delivery O2 Flow Rate FiO2 11/24/16 19:00 97.6 79 16 95/55 99 11/22/16 23:39 21 11/22/16 17:56 2.0 11/22/16 12:23 Nasal Cannula Intake and Output 11/23/16 11/23/16 11/24/16 15:00 23:00 07:00 Intake Total 1440 ml 1000 ml Output Total 5 ml 1170 ml Balance -5 ml 270 ml 1000 ml Results Result Diagram: 11/24/16 0549 11/24/16 0549 Results 24 hrs Laboratory Tests Test 11/24/16 05:49 Alanine Aminotransferase (ALT/SGPT) 64 Albumin 2.7 L Albumin/Globulin Ratio 0.93 Alkaline Phosphatase 73 Anion Gap 12 Aspartate Amino Transf (AST/SGOT) 45 Basophils # 0.0 Basophils % 0.6 Blood Urea Nitrogen 12 Calcium Level 7.6 L Carbon Dioxide Level 25 Chloride Level 110 Creatinine 0.41 L Direct Bilirubin 0.00 Eosinophils # 0.2 Eosinophils % 4.4 Globulin 2.90 Glucose Level 75 Hematocrit 25.4 L Hemoglobin 8.8 L Indirect Bilirubin 0.1 Lymphocytes # 1.2 Lymphocytes % 22.7 Mean Corpuscular Hemoglobin 31.2 Mean Corpuscular Hemoglobin Concent 34.8 Mean Corpuscular Volume 89.6 Mean Platelet Volume 8.6 Monocytes # 0.4 Monocytes % 6.6 Neutrophils # 3.6 Neutrophils % 65.7 Nucleated Red Blood Cells # 0.0 Nucleated Red Blood Cells % 0.0 Platelet Count 222 # Potassium Level 3.5 Prealbumin 15.3 L Red Blood Count 2.83 L Red Cell Distribution Width 12.6 Sodium Level 143 Total Bilirubin 0.1 L Total Protein 5.6 #L White Blood Count 5.4 # Medications Medications Current Medications Ondansetron HCl (Zofran Inj) 4 mg Q6H PRN IV NAUSEA AND/OR VOMITING; Start at 17:00 Acetaminophen (Tylenol Tab) 650 mg Q6H PRN PO PAIN LEVEL 1-3 OR FEVER; Start 11/10/16 at 17:00 Acetaminophen (Tylenol Supp) 650 mg Q6H PRN [place] PAIN LEVEL 1-3 OR FEVER; Start 11/10/16 at 17:00 Bisacodyl (Dulcolax Supp) 10 mg DAILY PRN [place] CONSTIPATION; Start 11/10/16 at 17:00 Zolpidem Tartrate (Ambien) 5 mg QHS PRN PO SLEEP; Start 11/10/16 at 17:00 IV Flush (NS 10 ml) 10 ml PRN PRN IV IV PROTOCOL; Start 11/17/16 at 18:30 Acetaminophen/ Hydrocodone Bitart 1 tab 1 tab Q6H PRN PO MODERATE PAIN LEVEL 4- 6 Last administered on 11/24/16 18:52; Admin Dose 1 TAB; Start 11/21/16 at 09:00 Potassium Cl/ Dextrose/Lact Ringer's (D5-Lr + KCl 20 Meq) 1,000 ml @ 40 mls/hr Q24H IV Last administered on 11/24/16 05:39; Admin Dose 40 MLS/HR; Start at 06:00 Senna (Senokot) 2 tab DAILY PO Last administered on 11/24/16 09:00; Admin Dose 2 TAB; Start 11/23/16 at 18:30 Famotidine (Pepcid Iv) 20 mg BID IV Last administered on 11/24/16 20:52; Admin Dose 20 MG; Start 11/24/16 at 21:00 MATT BARON MD Nov 24, 2016 23:09
--- NOTE | 2016-11-24 23:27 | PN ---
Date/Time of Note Date/Time of Note DATE: 11/24/16 TIME: 23:26 Assessment/Plan VTE Prophylaxis VTE Prophylaxis Intervention: SCD's Lines/Catheters IV Catheter Type (from Nrsg): PICC Line Central line still needed: Yes Urinary Cath still in place: No Assessment/Plan Assessment/Plan 1. Large ovarian mass. Status post BSO and sigmoid resection and anastomosis Follow [employer] [facility] oncology recommendations Cont TPN f/u final pathology result 2. Anemia: transfuse PRN 3. Constipation: bowel regimen. If no resolution, will check KUB to eval for ileus or obstruction Deep venous thrombosis prophylaxis, on SCD. Gastrointestinal prophylaxis, on Protonix. Subjective 24 Hr Interval Summary Free Text/Dictation c/o intermittent abd pain, but overall feeling well. Exam/Review of Systems Vital Signs Vitals Vital Signs Date Time Temp Pulse Resp B/P Pulse Ox O2 Delivery O2 Flow Rate FiO2 11/24/16 19:00 97.6 79 16 95/55 99 11/22/16 23:39 21 11/22/16 17:56 2.0 11/22/16 12:23 Nasal Cannula Intake and Output 11/23/16 11/23/16 11/24/16 15:00 23:00 07:00 Intake Total 1440 ml 1000 ml Output Total 5 ml 1170 ml Balance -5 ml 270 ml 1000 ml Exam General: The patient is well-developed, Not in acute distress. NG tube in place HEENT: Atraumatic, normocephalic. The pupils are equal and round . Neck: Supple with full range of motion. Chest: Normal expansion of the thorax during inspiration Lungs: Clear to auscultation bilaterally Heart: Normal S1-S2, Regular rhythm and rate. Abdomen: Soft , nontender, nondistended , bowel sounds are present. Surgical site is dry and clean Extremities: Normal to inspection, no edema no cyanosis Neurologic: Normal mental status,The patient is awake, alert and oriented . Results Result Diagram: 11/24/1649 11/24/1649 Results 24 hrs Laboratory Tests Test 11/24/16 05:49 Alanine Aminotransferase (ALT/SGPT) 64 Albumin 2.7 L Albumin/Globulin Ratio 0.93 Alkaline Phosphatase 73 Anion Gap 12 Aspartate Amino Transf (AST/SGOT) 45 Basophils # 0.0 Basophils % 0.6 Blood Urea Nitrogen 12 Calcium Level 7.6 L Carbon Dioxide Level 25 Chloride Level 110 Creatinine 0.41 L Direct Bilirubin 0.00 Eosinophils # 0.2 Eosinophils % 4.4 Globulin 2.90 Glucose Level 75 Hematocrit 25.4 L Hemoglobin 8.8 L Indirect Bilirubin 0.1 Lymphocytes # 1.2 Lymphocytes % 22.7 Mean Corpuscular Hemoglobin 31.2 Mean Corpuscular Hemoglobin Concent 34.8 Mean Corpuscular Volume 89.6 Mean Platelet Volume 8.6 Monocytes # 0.4 Monocytes % 6.6 Neutrophils # 3.6 Neutrophils % 65.7 Nucleated Red Blood Cells # 0.0 Nucleated Red Blood Cells % 0.0 Platelet Count 222 # Potassium Level 3.5 Prealbumin 15.3 L Red Blood Count 2.83 L Red Cell Distribution Width 12.6 Sodium Level 143 Total Bilirubin 0.1 L Total Protein 5.6 #L White Blood Count 5.4 # Medications Medications Current Medications Ondansetron HCl (Zofran Inj) 4 mg Q6H PRN IV NAUSEA AND/OR VOMITING; Start at 17:00 Acetaminophen (Tylenol Tab) 650 mg Q6H PRN PO PAIN LEVEL 1-3 OR FEVER; Start 11/10/16 at 17:00 Acetaminophen (Tylenol Supp) 650 mg Q6H PRN [place] PAIN LEVEL 1-3 OR FEVER; Start 11/10/16 at 17:00 Bisacodyl (Dulcolax Supp) 10 mg DAILY PRN [place] CONSTIPATION; Start 11/10/16 at 17:00 Zolpidem Tartrate (Ambien) 5 mg QHS PRN PO SLEEP; Start 11/10/16 at 17:00 IV Flush (NS 10 ml) 10 ml PRN PRN IV IV PROTOCOL; Start 11/17/16 at 18:30 Acetaminophen/ Hydrocodone Bitart 1 tab 1 tab Q6H PRN PO MODERATE PAIN LEVEL 4- 6 Last administered on 11/24/16 18:52; Admin Dose 1 TAB; Start 11/21/16 at 09:00 Potassium Cl/ Dextrose/Lact Ringer's (D5-Lr + KCl 20 Meq) 1,000 ml @ 40 mls/hr Q24H IV Last administered on 11/24/16 05:39; Admin Dose 40 MLS/HR; Start at 06:00 Senna (Senokot) 2 tab DAILY PO Last administered on 11/24/16 09:00; Admin Dose 2 TAB; Start 11/23/16 at 18:30 Famotidine (Pepcid Iv) 20 mg BID IV Last administered on 11/24/16 20:52; Admin Dose 20 MG; Start 11/24/16 at 21:00 Furosemide (Lasix) 20 mg ONCE ONCE IV ; Start 11/24/16 at 23:30; Stop 11/24/16 at 23:31; Status UNV JEFF BUSBY MD Nov 24, 2016 23:27
[2016-11-24] MEDS ORDERED: FUROSEMIDE 20 MG INJ IV ONE (23:30)
[2016-11-25] MEDS ORDERED: DIPHENHYDRAMINE 25 MG CAP PO ONE ×2 (01:00→02:48)
[2016-11-25] MEDS ORDERED: ACETAMINOPHEN 325 MG TAB PO ONE ×2 (01:00→02:47)
[2016-11-25 02:50] VITALS: BP 87/51; PULSE 92; RESP 18
[2016-11-25] MEDS: HYDROCODONE/APAP (5/325) TAB PO PRN ×3 (04:43→21:16)
[2016-11-25] MEDS: D5-LR + KCL 20 MEQ 1,000 ML IV SCH ×2 (06:00→15:58)
[2016-11-25 07:30] VITALS: BP 99/56; RESP 20
[2016-11-25 09:24] LABS: BASOPHILS % 0.6 % (0.0-2.0); EOSINOPHILS # 0.2 10^3/ul (0.0-0.5); EOSINOPHILS % 3.6 % (0.0-7.0); HEMATOCRIT 31.6 % (37.0-47.0); HEMOGLOBIN 10.9 g/dl (12.0-16.0); LYMPHOCYTES # 1.6 10^3/ul (0.8-2.9); LYMPHOCYTES % 26.2 % (15.0-51.0); MEAN CORPUSCULAR HEMOGLOBIN 30.6 pg (29.0-33.0); MEAN CORPUSCULAR HGB CONC 34.5 g/dl (32.0-37.0); MEAN CORPUSCULAR VOLUME 88.7 fl (82.0-101.0); MEAN PLATELET VOLUME 8.7 fl (7.4-10.4); MONOCYTE # 0.3 10^3/ul (0.3-0.9); MONOCYTES % 5.6 % (0.0-11.0); NEUTROPHIL # 3.9 10^3/ul (1.6-7.5); PLATELET COUNT 242 10^3/UL (140-440); RED BLOOD COUNT 3.56 10^6/ul (4.20-5.40); RED CELL DISTRIBUTION WIDTH 13.4 % (11.5-14.5); UNCORRECTED WBC 6.1 10^3/ul (4.8-10.8); WHITE BLOOD COUNT 6.1 10^3/ul (4.8-10.8)
[2016-11-25 09:26] LABS: CONDITION 1
[2016-11-25 09:33] LABS: INR 0.97; PROTIME 12.9 Sec (12.2-14.2)
[2016-11-25 09:36] LABS: POTASSIUM 3.4 mmol/L (3.5-5.1)
[2016-11-25 09:39] LABS: CREATININE 0.45 mg/dl (0.44-1.00)
[2016-11-25 09:40] LABS: CALCIUM 8.8 mg/dl (8.4-10.2)
[2016-11-25] MEDS: SENNA TAB PO SCH (11:08)
[2016-11-25] MEDS: FAMOTIDINE 20 MG INJ IV SCH ×2 (11:08→20:21)
[2016-11-25] MEDS ORDERED: POTASSIUM CHLORIDE (SR) 20 MEQ TAB PO STA (15:27)
--- NOTE | 2016-11-25 17:59 | PN ---
Date/Time of Note Date/Time of Note DATE: 11/25/16 TIME: 17:52 Assessment/Plan VTE Prophylaxis VTE Prophylaxis Intervention: LMWH Lines/Catheters IV Catheter Type (from Nrs): PICC Line Urinary Cath still in place: No Assessment/Plan Chief Complaint/Hosp Course Pelvic pain, elevated CA-125, Pelvic mass: IIIC LMP Problems: Assessment/Plan A- doing well overall P- Continue current Rx. Must start oral anticoagulant today and if H/H stable will d/c tomorrow Subjective 24 Hr Interval Summary Free Text/Dictation S- Feels better overall and ambulating less fatigued O- resp- clear cvs- NSR abd- soft mild pain. incision clean ext NT no edema A- doing well overall P- Continue current Rx. Must start oral anticoagulant today and if H/H stable will d/c tomorrow Exam/Review of Systems Vital Signs Vitals Vital Signs Date Time Temp Pulse Resp B/P Pulse Ox O2 Delivery O2 Flow Rate FiO2 11/25/16 07:30 97.3 78 20 99/56 97 11/25/16 02:50 Room Air 11/22/16 23:39 21 11/22/16 17:56 2.0 Intake and Output 11/24/16 11/24/16 11/25/16 15:00 23:00 07:00 Intake Total 2420 ml 1560 ml Output Total 50 ml 1140 ml 2000 ml Balance -50 ml 1280 ml -440 ml Results Result Diagram: 11/25/16 0852 11/25/16 0852 Results 24 hrs Laboratory Tests Test 11/24/16 23:30 11/25/16 08:52 Creatinine 0.44 0.45 Anion Gap 12 Basophils # 0.0 Basophils % 0.6 Blood Urea Nitrogen 9 Calcium Level 8.8 Carbon Dioxide Level 32 H Chloride Level 104 Eosinophils # 0.2 Eosinophils % 3.6 Glucose Level 80 Hematocrit 31.6 #L Hemoglobin 10.9 #L INR International Normalized Ratio 0.97 Lymphocytes # 1.6 Lymphocytes % 26.2 Mean Corpuscular Hemoglobin 30.6 Mean Corpuscular Hemoglobin Concent 34.5 Mean Corpuscular Volume 88.7 Mean Platelet Volume 8.7 Monocytes # 0.3 Monocytes % 5.6 Neutrophils # 3.9 Neutrophils % 64.0 Nucleated Red Blood Cells # 0.0 Nucleated Red Blood Cells % 0.0 Platelet Count 242 Potassium Level 3.4 L Prothrombin Time 12.9 # Prothrombin Time Ratio 1.0 Red Blood Count 3.56 #L Red Cell Distribution Width 13.4 Sodium Level 145 H White Blood Count 6.1 Medications Medications Current Medications Ondansetron HCl (Zofran Inj) 4 mg Q6H PRN IV NAUSEA AND/OR VOMITING; Start at 17:00 Acetaminophen (Tylenol Tab) 650 mg Q6H PRN PO PAIN LEVEL 1-3 OR FEVER; Start 11/10/16 at 17:00 Acetaminophen (Tylenol Supp) 650 mg Q6H PRN [place] PAIN LEVEL 1-3 OR FEVER; Start 11/10/16 at 17:00 Bisacodyl (Dulcolax Supp) 10 mg DAILY PRN [place] CONSTIPATION; Start 11/10/16 at 17:00 Zolpidem Tartrate (Ambien) 5 mg QHS PRN PO SLEEP; Start 11/10/16 at 17:00 IV Flush (NS 10 ml) 10 ml PRN PRN IV IV PROTOCOL; Start 11/17/16 at 18:30 Acetaminophen/ Hydrocodone Bitart 1 tab 1 tab Q6H PRN PO MODERATE PAIN LEVEL 4- 6 Last administered on 11/25/16 13:01; Admin Dose 1 TAB; Start 11/21/16 at 09:00 Potassium Cl/ Dextrose/Lact Ringer's (D5-Lr + KCl 20 Meq) 1,000 ml @ 40 mls/hr Q24H IV Last administered on 11/25/16 15:58; Admin Dose 40 MLS/HR; Start at 06:00 Senna (Senokot) 2 tab DAILY PO Last administered on 11/25/16 11:08; Admin Dose 2 TAB; Start 11/23/16 at 18:30 Famotidine (Pepcid Iv) 20 mg BID IV Last administered on 11/25/16 11:08; Admin Dose 20 MG; Start 11/24/16 at 21:00 MATT BARON MD Nov 25, 2016 17:59
[2016-11-25 20:08] VITALS: BP 98/54; RESP 16
[2016-11-25] MEDS ORDERED: APIXABAN 5 MG TABLET PO SCH (21:00)
[2016-11-25] MEDS ORDERED: ENOXAPARIN 40 MG/0.4 ML SYG SC SCH (21:00)
--- NOTE | 2016-11-26 00:01 | PN ---
Date/Time of Note Date/Time of Note DATE: 11/25/16 TIME: 12:00 Assessment/Plan VTE Prophylaxis VTE Prophylaxis Intervention: SCD's Lines/Catheters IV Catheter Type (from Nrsg): PICC Line Central line still needed: Yes Urinary Cath still in place: No Assessment/Plan Assessment/Plan 1. Large ovarian mass. Status post BSO and sigmoid resection and anastomosis Follow [employer] oncology recommendations Cont TPN f/u final pathology result 2. Anemia: transfuse PRN 3. Constipation: bowel regimen. If no resolution, will check KUB to eval for ileus or obstruction Deep venous thrombosis prophylaxis, on SCD. Gastrointestinal prophylaxis, on Protonix. Subjective 24 Hr Interval Summary Free Text/Dictation c/o weakness. reported 4 BM yesterday. tolerating diet Exam/Review of Systems Vital Signs Vitals Vital Signs Date Time Temp Pulse Resp B/P Pulse Ox O2 Delivery O2 Flow Rate FiO2 11/25/16 20:08 98.0 79 16 98/54 99 11/25/16 02:50 Room Air 11/22/16 23:39 21 11/22/16 17:56 2.0 Intake and Output 11/25/16 11/25/16 11/26/16 15:00 23:00 07:00 Intake Total 932 ml 2080 ml Output Total 2330 ml Balance 932 ml -250 ml Exam General: The patient is well-developed, Not in acute distress. NG tube in place HEENT: Atraumatic, normocephalic. The pupils are equal and round . Neck: Supple with full range of motion. Chest: Normal expansion of the thorax during inspiration Lungs: Clear to auscultation bilaterally Heart: Normal S1-S2, Regular rhythm and rate. Abdomen: Soft , nontender, nondistended , bowel sounds are present. Surgical site is dry and clean Extremities: Normal to inspection, no edema no cyanosis Neurologic: Normal mental status,The patient is awake, alert and oriented . Results Result Diagram: 11/25/1652 11/25/16 0852 Results 24 hrs Laboratory Tests Test 11/25/16 08:52 Anion Gap 12 Basophils # 0.0 Basophils % 0.6 Blood Urea Nitrogen 9 Calcium Level 8.8 Carbon Dioxide Level 32 H Chloride Level 104 Creatinine 0.45 Eosinophils # 0.2 Eosinophils % 3.6 Glucose Level 80 Hematocrit 31.6 #L Hemoglobin 10.9 #L INR International Normalized Ratio 0.97 Lymphocytes # 1.6 Lymphocytes % 26.2 Mean Corpuscular Hemoglobin 30.6 Mean Corpuscular Hemoglobin Concent 34.5 Mean Corpuscular Volume 88.7 Mean Platelet Volume 8.7 Monocytes # 0.3 Monocytes % 5.6 Neutrophils # 3.9 Neutrophils % 64.0 Nucleated Red Blood Cells # 0.0 Nucleated Red Blood Cells % 0.0 Platelet Count 242 Potassium Level 3.4 L Prothrombin Time 12.9 # Prothrombin Time Ratio 1.0 Red Blood Count 3.56 #L Red Cell Distribution Width 13.4 Sodium Level 145 H White Blood Count 6.1 Medications Medications Current Medications Ondansetron HCl (Zofran Inj) 4 mg Q6H PRN IV NAUSEA AND/OR VOMITING; Start at 17:00 Acetaminophen (Tylenol Tab) 650 mg Q6H PRN PO PAIN LEVEL 1-3 OR FEVER; Start 11/10/16 at 17:00 Acetaminophen (Tylenol Supp) 650 mg Q6H PRN [place] PAIN LEVEL 1-3 OR FEVER; Start 11/10/16 at 17:00 Bisacodyl (Dulcolax Supp) 10 mg DAILY PRN [place] CONSTIPATION; Start 11/10/16 at 17:00 Zolpidem Tartrate (Ambien) 5 mg QHS PRN PO SLEEP; Start 11/10/16 at 17:00 IV Flush (NS 10 ml) 10 ml PRN PRN IV IV PROTOCOL; Start 11/17/16 at 18:30 Acetaminophen/ Hydrocodone Bitart 1 tab 1 tab Q6H PRN PO MODERATE PAIN LEVEL 4- 6 Last administered on 11/25/16 21:16; Admin Dose 1 TAB; Start 11/21/16 at 09:00 Potassium Cl/ Dextrose/Lact Ringer's (D5-Lr + KCl 20 Meq) 1,000 ml @ 20 mls/hr Q24H IV Last administered on 11/25/16 15:58; Admin Dose 40 MLS/HR; Start at 06:00 Senna (Senokot) 2 tab DAILY PO Last administered on 11/25/16 11:08; Admin Dose 2 TAB; Start 11/23/16 at 18:30 Famotidine (Pepcid Iv) 20 mg BID IV Last administered on 11/25/16 20:21; Admin Dose 20 MG; Start 11/24/16 at 21:00 JEFF BUSBY MD Nov 26, 2016 00:01
[2016-11-26] MEDS: HYDROCODONE/APAP (5/325) TAB PO PRN ×2 (02:30→09:12)
[2016-11-26 07:23] VITALS: BP 101/58; RESP 20
[2016-11-26] MEDS: SENNA TAB PO SCH (09:00)
[2016-11-26] MEDS: FAMOTIDINE 20 MG INJ IV SCH (09:11)
[2016-11-26] MEDS ORDERED: TRAM-40 PO (10:49)
[2016-11-26] MEDS ORDERED: HYDR-3498 PO (10:49)
[2016-11-26] MEDS ORDERED: DOCU-144 PO (10:49)
--- NOTE | 2016-11-26 10:52 | PDOCDIS ---
Discharge Instructions DIAGNOSIS Discharge Diagnosis: Large Ovarian Mass CONDITION Patient Condition: Stable HOME CARE INSTRUCTIONS: Special Diet: mechanical soft ACTIVITY: Activity Restrictions: Slowly Increase Activity Rest between Activity Avoid heavy lifting FOLLOW UP/APPOINTMENTS Appointments Follow up with Dr. Hoang Hayward on 11/30/2016 in his office. Follow up with your primary care physician in one week. OTHER ORDERS: Other Orders: Ovarian Mass s/p resection - continue with the pain medications as prescribed. take the colace scheduled. Do not lift more than 5 lbs. Limit exercise. If you are having bleeding from your surgical sites, please come in to see the surgeon as soon as possible. ZAKIA GIL MD Nov 26, 2016 10:52
--- NOTE | 2016-11-26 12:36 | DS ---
DATE OF ADMISSION: 11/10/2016 DATE OF DISCHARGE: 11/26/2016 DISCHARGE DIAGNOSES: 1. Large ovarian, status post bilateral salpingo-oophorectomy and sigmoid resection with anastomosi s. 2. Anemia, seems like it is chronic, improved. 3. Constipation, resolved. HOSPITAL COURSE: This is a 31-year-old female with no significant past medical history, who came in with abdominal discomfort accompanied with abdominal distention and mild pain. She was found to nettles ve a large abdominal pelvic solid mass of 10 x 16 x [address] abdomen and pelvis. She was sen t to [facility] for insurance purposes here and Dr. Hoang Hayward was on the case. Initia l laboratory findings had shown that she had a white count of 8.9, H and H 13.1 and 38.4, and platel ets of 278. Current white count is 6.1, H and H is 10.9 and 31.6, and platelets of 242. Chemistry had shown sodium 142, potassium 3.6, chloride of 102, bicarb of 27, anion gap of 18, BUN and creatin ine 15 and 0.53, glucose of 90, calcium 8.6. Alpha fetoprotein is 2.05. HE4 ovarian cancer marker was 97. Prealbumin is 15.3, current BMP has shown a sodium of 145, potassium 3.4, chloride of 104, carbon dioxide 32, anion gap of 12, BUN and creatinine of 9 and 0.45, glucose of 80, calcium 8.8. C oags were mildly elevated on 11/14/2016 with the INR of 1.43, currently 0.97. Stool occult blood wa s negative. Microbiology: Urine culture was negative. Pathology prelim on 11/13/2016 had shown mi croscopic focus, suspicious for microinvasion as seen in right ovarian tumor, condition possibly of invasive implants cannot be totally excluded. Final report is pending. The patient had a CALLY drain placed and was started on a soft mechanical diet at this time. The patie nt's overall pain is improved. Surgical sites have been clean, dry, and intact. No other acute com plaints. Physical exam findings are stable. I spoke with Dr. Hayward about the care plan as well as the patient who agreed with the care plan. DISPOSITION: Home. CONDITION: Stable. DISCHARGE MEDICATIONS: Include: 1. [place] 5/325 q.6 hours p.r.n. for breakthrough pain. 2. Tramadol 50 mg p.o. q.6 p.r.n. for pain. 3. Colace 100 mg p.o. b.i.d. scheduled. FOLLOWUP: The patient will follow up with Dr. Hoang Hayward on , 11/30/2016, will follow u p with her primary care physician within a week. Patient and consultants made aware of this and agr ee with the plan. Coordination of discharge greater than 45 minutes. Dictated By: ZAKIA ATKINSON/RENETTA Conf#: [id number] DID#: [id number]
== END 2016-11-26 14:15 | disposition home or self-care (01) | DRG 737 ==
LOC: MS2 13:52
PROVIDERS: ADMIT Family Medicine; ATTEND Family Medicine
PROC: 0TS80ZZ Reposition Bilateral Ureters, Open Approach (ICD-10-PCS; 2016-11-13)
PROC: 07BD0ZX Excision of Aortic Lymphatic, Open Approach, Diagnostic (ICD-10-PCS; 2016-11-13)
PROC: 07BC0ZX Excision of Pelvis Lymphatic, Open Approach, Diagnostic (ICD-10-PCS; 2016-11-13)
PROC: 0UT00ZZ Resection of Right Ovary, Open Approach (ICD-10-PCS; 2016-11-13)
PROC: 0DBN0ZZ Excision of Sigmoid Colon, Open Approach (ICD-10-PCS; 2016-11-13)
PROC: 0UT50ZZ Resection of Right Fallopian Tube, Open Approach (ICD-10-PCS; 2016-11-13)
PROC: 0UT90ZZ Resection of Uterus, Open Approach (ICD-10-PCS; principal; 2016-11-13 08:00)
PROC: 30233N1 Transfusion of Nonautologous Red Blood Cells into Peripheral Vein, Percutaneous Approach (ICD-10-PCS; 2016-11-15)
PROC: 02HV33Z Insertion of Infusion Device into Superior Vena Cava, Percutaneous Approach (ICD-10-PCS; 2016-11-17)
PROC: 30233K1 Transfusion of Nonautologous Frozen Plasma into Peripheral Vein, Percutaneous Approach (ICD-10-PCS; 2016-11-25)
DX: C56.1 Malignant neoplasm of right ovary (principal); R18.8 Other ascites; C78.6 Secondary malignant neoplasm of retroperitoneum and peritoneum; C78.5 Secondary malignant neoplasm of large intestine and rectum; N13.5 Crossing vessel and stricture of ureter without hydronephrosis; N94.10 Unspecified dyspareunia; N94.6 Dysmenorrhea, unspecified; D64.9 Anemia, unspecified
CPT/HCPCS: 36430; 36569; 71010; 74177; 76937; 80048; 80053; 80076; 82105; 82270; 82565; 82962; 83615; 83735; 84100; 84134; 84478; 84703; 85025; 85610; 85730; 86305; 86850; 86900; 86901; 86920; 87086; 93923; 94640; 94664; 97001; 97110; 97116; 97530; J1940; A4310; C1769; J0690; J1100; J1170; J1200; J1644; J1885; J2175; J2250; J2270; J2274; J2370; J2405; J2795; J3010; J3480; J7040; J7120; P9016; P9045; P9059; Q9967

== ENCOUNTER 2016-11-27 21:42 | Emergency (ER) | payer OTHER ==
[~2016-11-27 21:42] MED LIST: DOCU-144 PO; HYDR-3498 PO; TRAM-40 PO
== END 2016-11-27 21:54 | disposition left against medical advice (07) ==
LOC: E/R 21:42
DX: Z53.21 Procedure and treatment not carried out due to patient leaving prior to being seen by health care provider (principal)

== ENCOUNTER 2016-11-28 03:14 | Inpatient (IN) | payer OTHER ==
[~2016-11-28] VITALS: Ht 144.8 cm; Wt 57.4 kg
[2016-11-28 06:12] VITALS: BP 97/53; RESP 20
[2016-11-28 06:28] VITALS: Ht 144.8 cm; Wt 57.4 kg
[2016-11-28] MEDS ORDERED: HYDROCODONE/APAP (5/325) TAB PO PRN (06:30)
[2016-11-28] MEDS ORDERED: VANCOMYCIN IV PER PHARMACY XX SCH (06:30)
[2016-11-28] MEDS ORDERED: morphine 2 MG INJ IV PRN (06:30)
[2016-11-28] MEDS ORDERED: NACL 0.9% 3 ML SYG IV SCH (06:30)
[2016-11-28] MEDS ORDERED: DOCUSATE SODIUM 100 MG CAP PO PRN (06:30)
--- NOTE | 2016-11-28 06:49 | HP ---
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 1. Post-operative infection - will admit the patient to med/surg, continue with pain medications, IV antibiotics, c/s Dr. Hayward for follow up, bowel regimen , if worsening in nature, consult ID, obtain wound cultures. 2. GI ppx - pepcid 3. DVT ppx - scds answered all of her questions. as per clinical course. 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 She states that after she came home, she noticed a lot of pain in her abdomen and surrounding the CALLY site. She also had subjective fevers, and inability to eat. She denies any chest pain, shortness of breath, loss of consciousness, headaches, urinary irregularities, nausea/vomiting/diarrhea at this time. No other constitutional symptoms. Initially she had gone to [facility], transferred here for insurance purposes. [place] Labs: WBCs: 17.5 ROS 14 point review of systems completed, please refer to HPI for any positive findings PMH/Family/Social Past Medical History Ovarian CA Past Surgical History s/p ovarian resections/lymph node resections Family History Significant Family History: no pertinent family hx Social History Alcohol Use: none Smoking Status: Never smoker Drug Use: none Exam/Review of Systems Vital Signs Vitals Vital Signs Date Time Temp Pulse Resp B/P Pulse Ox O2 Delivery O2 Flow Rate FiO2 11/28/16 06:12 98.8 110 20 97/53 95 Exam Exam Gen [place]: moderate distress 2/2 to abdominal pain, AAOx4 HEENT: NC/AT, PERRLA, EOMI, no pharyngeal erythema, no tonsillar exudates, no lymphadenopathy, no JVD, no carotid bruits NECK: supple, no thyromegaly THORAX: symmetrical, no obvious deformities CV: S1S2, RRR, no M/G/R Lungs: CTAB no W/C/R/R Abd: soft, tenderness to palpation left lower quadrant around CALLY site, with some purulent discharge noted, non-distended, hypoactive bowel sounds EXT: no edema, no ecchymosis, no clubbing, FROM Neuro: CN II-XII grossly intact, no focal deficits Psych:fair mood and affect Skin: C/D/I Medications Medications Current Medications Ondansetron HCl (Zofran Inj) 4 mg Q6H PRN IV NAUSEA AND/OR VOMITING; Start 09/04 at 06:30 Acetaminophen (Tylenol Tab) 650 mg Q6H PRN PO PAIN LEVEL 1-3 OR FEVER; Start at 06:30 Acetaminophen/ Hydrocodone Bitart ([place] (5/325)) 1 tab Q6H PRN PO MODERATE PAIN LEVEL 4-6; Start 11/28/16 at 06:30 Morphine Sulfate (morphine) 2 mg Q4H PRN IV SEVERE PAIN LEVEL 7-10; Start 11/28 at 06:30 Docusate Sodium (Colace) 100 mg Q12H PRN PO CONSTIPATION; Start 11/28/16 at 06: 30 Famotidine 20 mg 20 mg Q12 PO ; Start 11/28/16 at 09:00 Piperacillin Sod/ Tazobactam Sod (Zosyn 3.375gm/ 100 ml (Pmx)) 100 ml @ 200 mls /hr Q6 IVPB ; Start 11/28/16 at 12:00 ZAKIA GIL MD Nov 28, 2016 06:49
[2016-11-28] MEDS: ONDANSETRON 4 MG INJ IV PRN ×2 (06:54→22:27)
[2016-11-28 07:58] VITALS: BP 96/50; RESP 18
[2016-11-28] MEDS ORDERED: VANCOMYCIN 1 GM in NS 250 ML IVPB SCH (09:00)
[2016-11-28] MEDS: FAMOTIDINE 20 MG TAB PO SCH ×2 (09:28→20:17)
[2016-11-28] MEDS ORDERED: KETOROLAC 15 MG INJ IV STA (10:08)
[2016-11-28] MEDS: PIPER-TAZO 3.375 GM IV (PMX) 100 ML IVPB SCH ×2 (12:42→18:32)
--- NOTE | 2016-11-28 14:32 | PN ---
Date/Time of Note Date/Time of Note DATE: 11/28/16 TIME: 14:30 Assessment/Plan VTE Prophylaxis VTE Prophylaxis Intervention: other Assessment/Plan Chief Complaint/Hosp Course Assessment and plan 1. Post-operative infection - will admit the patient to med/surg, continue with pain medications, IV antibiotics, c/s Dr. Hayward for follow up, bowel regimen , if worsening in nature, consult ID, obtain wound cultures. 2. Status post ovarian tumor resection, continue postsurgical care 3. GI ppx - pepcid 4. DVT ppx - scds We will continue monitor patient closely for recommendation management treatment as per clinical course Problems: Subjective 24 Hr Interval Summary Free Text/Dictation Patient complains of having minimal left lower quadrant abdominal wall discomfort No fever or chills Denies of any chest pain or shortness of breath Exam/Review of Systems Vital Signs Vitals Vital Signs Date Time Temp Pulse Resp B/P Pulse Ox O2 Delivery O2 Flow Rate FiO2 11/28/16 07:58 98.9 94 18 96/50 97 Exam General: The patient is well-developed, Not in acute distress. HEENT: Atraumatic, normocephalic. The pupils are equal and round . Neck: Supple with full range of motion. Chest: Normal expansion of the thorax during inspiration Lungs: Clear to auscultation bilaterally Heart: Normal S1-S2, Regular rhythm and rate. Abdomen: Soft , nontender, nondistended , bowel sounds are present. Surgical site is dry and clean, the CALLY site has minimal exudate Extremities: Normal to inspection, no edema no cyanosis Neurologic: Normal mental status,The patient is awake, alert and oriented . Medications Medications Current Medications Ondansetron HCl (Zofran Inj) 4 mg Q6H PRN IV NAUSEA AND/OR VOMITING Last administered on 11/28/16 06:54; Admin Dose 4 MG; Start 11/28/16 at 06:30 Acetaminophen (Tylenol Tab) 650 mg Q6H PRN PO PAIN LEVEL 1-3 OR FEVER; Start at 06:30 Docusate Sodium (Colace) 100 mg Q12H PRN PO CONSTIPATION; Start 11/28/16 at 06: 30 Famotidine 20 mg 20 mg Q12 PO Last administered on 11/28/16 09:28; Admin Dose 20 MG; Start 11/28/16 at 09:00 Piperacillin Sod/ Tazobactam Sod (Zosyn 3.375gm/ 100 ml (Pmx)) 100 ml @ 200 mls /hr Q6 IVPB Last administered on 11/28/16t 12:42; Admin Dose 200 MLS/HR; Start 11/28/16 at 12:00 Acetaminophen/ Hydrocodone Bitart ([place] (5/325)) 1 tab Q4H PRN PO MODERATE PAIN LEVEL 4-6; Start 11/28/16 at 10:08 Morphine Sulfate 2 mg 2 mg Q3H PRN IV SEVERE PAIN LEVEL 7-10; Start 11/28/16 at 10:08 Vancomycin HCl/ Sodium Chloride (Vancocin/NS) 150 ml @ 75 mls/hr Q8H IVPB ; Start 11/28/16 at 17:00 MORALES PEREIRA MD Nov 28, 2016 14:32
[2016-11-28] MEDS: morphine 2 MG INJ IV PRN ×2 (15:19→22:28)
[2016-11-28] MEDS: VANCOMYCIN 750 MG in SOD CHLORIDE 0.9% 150 ML IVPB SCH (16:57)
[2016-11-28 20:09] VITALS: BP 108/63; RESP 19
[2016-11-28] MEDS: ACETAMINOPHEN 325 MG TAB PO PRN (20:17)
[2016-11-28] MEDS ORDERED: SOD CHLORIDE 0.9% 1,000 ML IV SCH (20:30)
[2016-11-28 21:45] VITALS: BP 110/68; PULSE 111; RESP 20
--- NOTE | 2016-11-28 23:40 | PN ---
Date/Time of Note Date/Time of Note DATE: 11/28/16 TIME: 23:36 Assessment/Plan VTE Prophylaxis VTE Prophylaxis Intervention: SCD's Lines/Catheters IV Catheter Type (from Nrsg): [place] Assessment/Plan Chief Complaint/Hosp Course post op pain Problems: Assessment/Plan A- IMPROVED P- recheck a.m., continue current rx. Subjective 24 Hr Interval Summary Free Text/Dictation S- feels less pain, no N/V O- rep-clear cvs-nsr abd- soft, minimal llq tender, no cvat and no rebound ext- no edema or pain A- IMPROVED P- recheck a.m., continue current rx. Exam/Review of Systems Vital Signs Vitals Vital Signs Date Time Temp Pulse Resp B/P Pulse Ox O2 Delivery O2 Flow Rate FiO2 11/28/16 20:09 102.8 119 19 108/63 97 Medications Medications Current Medications Ondansetron HCl (Zofran Inj) 4 mg Q6H PRN IV NAUSEA AND/OR VOMITING Last administered on 11/28/16 22:27; Admin Dose 4 MG; Start 11/28/16 at 06:30 Acetaminophen (Tylenol Tab) 650 mg Q6H PRN PO PAIN LEVEL 1-3 OR FEVER Last administered on 11/28/16 20:17; Admin Dose 650 MG; Start 11/28/16 at 06:30 Docusate Sodium (Colace) 100 mg Q12H PRN PO CONSTIPATION Last administered on 18:32; Admin Dose 100 MG; Start 11/28/16 at 06:30 Famotidine 20 mg 20 mg Q12 PO Last administered on 11/28/16 20:17; Admin Dose 20 MG; Start 11/28/16 at 09:00 Piperacillin Sod/ Tazobactam Sod (Zosyn 3.375gm/ 100 ml (Pmx)) 100 ml @ 200 mls /hr Q6 IVPB Last administered on 11/28/16 18:32; Admin Dose 200 MLS/HR; Start 11/28/16 at 12:00 Acetaminophen/ Hydrocodone Bitart ([place] (5/325)) 1 tab Q4H PRN PO MODERATE PAIN LEVEL 4-6; Start 11/28/16 at 10:08 Morphine Sulfate 2 mg 2 mg Q3H PRN IV SEVERE PAIN LEVEL 7-10 Last administered on 11/28/16 22:28; Admin Dose 2 MG; Start 11/28/16 at 10:08 Vancomycin HCl/ Sodium Chloride (Vancocin/NS) 150 ml @ 75 mls/hr Q8H IVPB Last administered on 11/28/16 16:57; Admin Dose 75 MLS/HR; Start 11/28/16 at 17 :00 Miscellaneous Information 1 ONCE ONCE XX ; Start 11/29/16 at 08:00; Stop at 08:01 Sodium Chloride (NS) 1,000 ml @ 100 mls/hr Q10H IV Last administered on 20:45; Admin Dose 100 MLS/HR; Start 11/28/16 at 20:30; Stop 11/29/16 at 01: 29 MATT BARON MD Nov 28, 2016 23:40
[2016-11-29] VITALS: BP 105/55; RESP 20
[2016-11-29] MEDS: PIPER-TAZO 3.375 GM IV (PMX) 100 ML IVPB SCH ×4 (00:33→19:00)
[2016-11-29] MEDS: HYDROCODONE/APAP (5/325) TAB PO PRN ×3 (00:39→16:12)
[2016-11-29] MEDS: VANCOMYCIN 750 MG in SOD CHLORIDE 0.9% 150 ML IVPB SCH ×2 (02:17→09:42)
[2016-11-29 02:20] VITALS: PULSE 100
[2016-11-29] MEDS: morphine 2 MG INJ IV PRN ×3 (03:29→22:11)
[2016-11-29 05:00] VITALS: BP 97/55; RESP 20
[2016-11-29] MEDS: ACETAMINOPHEN 325 MG TAB PO PRN ×2 (07:40→19:00)
[2016-11-29 07:58] VITALS: BP 99/52; RESP 24
[2016-11-29 08:28] LABS: EOSINOPHILS % 0.2 % (0.0-7.0); HEMATOCRIT 32.1 % (37.0-47.0); HEMOGLOBIN 11.2 g/dl (12.0-16.0); LYMPHOCYTES # 0.8 10^3/ul (0.8-2.9); LYMPHOCYTES % 4.6 % (15.0-51.0); MEAN CORPUSCULAR HEMOGLOBIN 30.8 pg (29.0-33.0); MEAN CORPUSCULAR HGB CONC 34.8 g/dl (32.0-37.0); MEAN CORPUSCULAR VOLUME 88.6 fl (82.0-101.0); MEAN PLATELET VOLUME 8.8 fl (7.4-10.4); MONOCYTE # 0.7 10^3/ul (0.3-0.9); MONOCYTES % 4.1 % (0.0-11.0); NEUTROPHIL # 15.6 10^3/ul (1.6-7.5); NEUTROPHILS % 91.1 % (39.0-77.0); PLATELET COUNT 219 10^3/UL (140-440); RED BLOOD COUNT 3.62 10^6/ul (4.20-5.40); RED CELL DISTRIBUTION WIDTH 13.3 % (11.5-14.5); UNCORRECTED WBC 17.1 10^3/ul (4.8-10.8); WHITE BLOOD COUNT 17.1 10^3/ul (4.8-10.8)
[2016-11-29 08:39] LABS: POTASSIUM 3.4 mmol/L (3.5-5.1)
[2016-11-29 08:41] LABS: CONDITION 1; CREATININE 0.45 mg/dl (0.44-1.00); LH ANALYZER COMMENTS 1
[2016-11-29 08:42] LABS: CALCIUM 8.3 mg/dl (8.4-10.2)
[2016-11-29] MEDS: FAMOTIDINE 20 MG TAB PO SCH ×2 (09:42→20:43)
[2016-11-29] MEDS: VANCOMYCIN 1.25 GM in SOD CHLORIDE 0.9% 250 ML IVPB SCH ×2 (14:41→22:04)
[2016-11-29] MEDS ORDERED: POTASSIUM CHLORIDE (SR) 20 MEQ TAB PO STA (15:46)
--- NOTE | 2016-11-29 15:46 | PN ---
Date/Time of Note Date/Time of Note DATE: 11/29/16 TIME: 15:44 Assessment/Plan VTE Prophylaxis VTE Prophylaxis Intervention: SCD's Lines/Catheters [facility] Assessment/Plan Chief Complaint/Hosp Course Assessment and plan 1. Post-operative infection - will admit the patient to med/surg, continue with pain medications, IV antibiotics, c/s Dr. Hayward for follow up, bowel regimen , if worsening in nature, consult ID, obtain wound cultures. 2. Status post ovarian tumor resection, continue postsurgical care 3. Hypokalemia, repleted 4. GI ppx - pepcid 5. DVT ppx - scds We will continue monitor patient closely for recommendation management treatment as per clinical course Problems: Subjective 24 Hr Interval Summary Free Text/Dictation Patient complains of having minimal pain at the infection site No nausea vomiting diarrhea Ambulating without any difficulty Tolerating oral intake Exam/Review of Systems Vital Signs Vitals Vital Signs Date Time Temp Pulse Resp B/P Pulse Ox O2 Delivery O2 Flow Rate FiO2 11/29/16 07:58 100.9 101 24 99/52 100 11/28/16 21:45 Room Air Intake and Output 11/28/16 11/28/16 11/29/16 15:00 23:00 07:00 Intake Total 100 ml 250 ml 1190 ml Balance 100 ml 250 ml 1190 ml Exam General: The patient is well-developed, Not in acute distress. HEENT: Atraumatic, normocephalic. The pupils are equal and round . Neck: Supple with full range of motion. Chest: Normal expansion of the thorax during inspiration Lungs: Clear to auscultation bilaterally Heart: Normal S1-S2, Regular rhythm and rate. Abdomen: Soft , nontender, nondistended , bowel sounds are present. Minimal exudate at the CALLY site, no sign of infection Extremities: Normal to inspection, no edema no cyanosis Neurologic: Normal mental status,The patient is awake, alert and oriented . Results Result Diagram: 11/29/16 0800 11/29/16 0800 Results 24 hrs Laboratory Tests Test 11/29/16 08:00 Anion Gap 12 Basophils # 0.0 Basophils % 0.0 Blood Urea Nitrogen 6 L Calcium Level 8.3 L Carbon Dioxide Level 29 Chloride Level 104 Creatinine 0.45 Eosinophils # 0.0 Eosinophils % 0.2 Glucose Level 97 Hematocrit 32.1 L Hemoglobin 11.2 L Lymphocytes # 0.8 Lymphocytes % 4.6 L Mean Corpuscular Hemoglobin 30.8 Mean Corpuscular Hemoglobin Concent 34.8 Mean Corpuscular Volume 88.6 Mean Platelet Volume 8.8 Monocytes # 0.7 Monocytes % 4.1 Neutrophils # 15.6 H Neutrophils % 91.1 H Nucleated Red Blood Cells # 0.0 Nucleated Red Blood Cells % 0.0 Platelet Count 219 Potassium Level 3.4 L Red Blood Count 3.62 L Red Cell Distribution Width 13.3 Sodium Level 142 Vancomycin Level Trough 6.5 L White Blood Count 17.1 #H Medications Medications Current Medications Ondansetron HCl (Zofran Inj) 4 mg Q6H PRN IV NAUSEA AND/OR VOMITING Last administered on 11/28/16 22:27; Admin Dose 4 MG; Start 11/28/16 at 06:30 Acetaminophen (Tylenol Tab) 650 mg Q6H PRN PO PAIN LEVEL 1-3 OR FEVER Last administered on 11/29/16 07:40; Admin Dose 650 MG; Start 11/28/16 at 06:30 Docusate Sodium (Colace) 100 mg Q12H PRN PO CONSTIPATION Last administered on 18:32; Admin Dose 100 MG; Start 11/28/16 at 06:30 Famotidine 20 mg 20 mg Q12 PO Last administered on 11/29/16 09:42; Admin Dose 20 MG; Start 11/28/16 at 09:00 Piperacillin Sod/ Tazobactam Sod (Zosyn 3.375gm/ 100 ml (Pmx)) 100 ml @ 200 mls /hr Q6 IVPB Last administered on 11/29/16 12:59; Admin Dose 200 MLS/HR; Start 11/28/16 at 12:00 Acetaminophen/ Hydrocodone Bitart ([place] (5/325)) 1 tab Q4H PRN PO MODERATE PAIN LEVEL 4-6 Last administered on 11/29/16 10:23; Admin Dose 1 TAB; Start 09/04 at 10:08 Morphine Sulfate 2 mg 2 mg Q3H PRN IV SEVERE PAIN LEVEL 7-10 Last administered on 11/29/16 14:41; Admin Dose 2 MG; Start 11/28/16 at 10:08 Vancomycin HCl/ Sodium Chloride (Vancocin/NS) 250 ml @ 83.333 mls/ hr Q8H IVPB Last administered on 11/29/16t 14:41; Admin Dose 83.333 MLS/HR; Start at 15:00 Miscellaneous Information (*Rx Drug Level Order Reminder*) VANCOMYCIN TROUGH LEVEL... ONCE ONCE XX ; Start 11/30/16 at 14:00; Stop 11/30/16 at 14:01 MORALES PEREIRA MD Nov 29, 2016 15:46
[2016-11-29 20:12] VITALS: BP 100/55; RESP 20
--- NOTE | 2016-11-29 22:39 | PN ---
Date/Time of Note Date/Time of Note DATE: 11/29/16 TIME: 22:37 Assessment/Plan VTE Prophylaxis VTE Prophylaxis Intervention: SCD's Lines/Catheters IV Catheter Type (from Nrsg): Peripheral IV Assessment/Plan Chief Complaint/Hosp Course post op pain Problems: Assessment/Plan A- similar to yesterday P- recheck a.m., continue current rx. Subjective 24 Hr Interval Summary Free Text/Dictation S- feels less pain but ongoing lower abdominal, no N/V O- rep-clear cvs-nsr abd- soft, minimal llq tender, no cvat and no rebound ext- no edema or pain A- similar to yesterday P- recheck a.m., continue current rx. Exam/Review of Systems Vital Signs Vitals Vital Signs Date Time Temp Pulse Resp B/P Pulse Ox O2 Delivery O2 Flow Rate FiO2 11/29/16 20:12 99.3 119 20 100/55 95 11/28/16 21:45 Room Air Intake and Output 11/28/16 11/28/16 11/29/16 15:00 23:00 07:00 Intake Total 100 ml 250 ml 1190 ml Balance 100 ml 250 ml 1190 ml Results Result Diagram: 11/29/16 0800 11/29/16 0800 Results 24 hrs Laboratory Tests Test 11/29/16 08:00 Anion Gap 12 Basophils # 0.0 Basophils % 0.0 Blood Urea Nitrogen 6 L Calcium Level 8.3 L Carbon Dioxide Level 29 Chloride Level 104 Creatinine 0.45 Eosinophils # 0.0 Eosinophils % 0.2 Glucose Level 97 Hematocrit 32.1 L Hemoglobin 11.2 L Lymphocytes # 0.8 Lymphocytes % 4.6 L Mean Corpuscular Hemoglobin 30.8 Mean Corpuscular Hemoglobin Concent 34.8 Mean Corpuscular Volume 88.6 Mean Platelet Volume 8.8 Monocytes # 0.7 Monocytes % 4.1 Neutrophils # 15.6 H Neutrophils % 91.1 H Nucleated Red Blood Cells # 0.0 Nucleated Red Blood Cells % 0.0 Platelet Count 219 Potassium Level 3.4 L Red Blood Count 3.62 L Red Cell Distribution Width 13.3 Sodium Level 142 Vancomycin Level Trough 6.5 L White Blood Count 17.1 #H Medications Medications Current Medications Ondansetron HCl (Zofran Inj) 4 mg Q6H PRN IV NAUSEA AND/OR VOMITING Last administered on 11/28/16 22:27; Admin Dose 4 MG; Start 11/28/16 at 06:30 Acetaminophen (Tylenol Tab) 650 mg Q6H PRN PO PAIN LEVEL 1-3 OR FEVER Last administered on 11/29/16 19:00; Admin Dose 650 MG; Start 11/28/16 at 06:30 Docusate Sodium (Colace) 100 mg Q12H PRN PO CONSTIPATION Last administered on 18:32; Admin Dose 100 MG; Start 11/28/16 at 06:30 Famotidine 20 mg 20 mg Q12 PO Last administered on 11/29/16 20:43; Admin Dose 20 MG; Start 11/28/16 at 09:00 Piperacillin Sod/ Tazobactam Sod (Zosyn 3.375gm/ 100 ml (Pmx)) 100 ml @ 200 mls /hr Q6 IVPB Last administered on 11/29/16 19:00; Admin Dose 200 MLS/HR; Start 11/28/16 at 12:00 Acetaminophen/ Hydrocodone Bitart ([place] (5/325)) 1 tab Q4H PRN PO MODERATE PAIN LEVEL 4-6 Last administered on 11/29/16 16:12; Admin Dose 1 TAB; Start 09/04 at 10:08 Morphine Sulfate 2 mg 2 mg Q3H PRN IV SEVERE PAIN LEVEL 7-10 Last administered on 11/29/16 22:11; Admin Dose 2 MG; Start 11/28/16 at 10:08 Vancomycin HCl/ Sodium Chloride (Vancocin/NS) 250 ml @ 83.333 mls/ hr Q8H IVPB Last administered on 11/29/16 22:04; Admin Dose 83.333 MLS/HR; Start at 15:00 Miscellaneous Information (*Rx Drug Level Order Reminder*) VANCOMYCIN TROUGH LEVEL... ONCE ONCE XX ; Start 11/30/16 at 14:00; Stop 11/30/16 at 14:01 MATT BARON MD Nov 29, 2016 22:39
[2016-11-29] MEDS ORDERED: LOPERAMIDE 2 MG CAP PO PRN (23:30)
[2016-11-30] MEDS: PIPER-TAZO 3.375 GM IV (PMX) 100 ML IVPB SCH ×4 (00:39→18:54)
[2016-11-30] MEDS: HYDROCODONE/APAP (5/325) TAB PO PRN ×2 (00:39→16:16)
[2016-11-30] MEDS: morphine 2 MG INJ IV PRN ×3 (05:16→22:22)
[2016-11-30] MEDS: VANCOMYCIN 1.25 GM in SOD CHLORIDE 0.9% 250 ML IVPB SCH ×2 (06:53→16:02)
[2016-11-30 08:02] VITALS: BP 108/55; RESP 16
[2016-11-30] MEDS: FAMOTIDINE 20 MG TAB PO SCH ×2 (08:52→20:55)
[2016-11-30 09:52] LABS: BASOPHILS % 0.3 % (0.0-2.0); EOSINOPHILS # 0.1 10^3/ul (0.0-0.5); EOSINOPHILS % 0.8 % (0.0-7.0); HEMATOCRIT 30.3 % (37.0-47.0); HEMOGLOBIN 10.3 g/dl (12.0-16.0); LYMPHOCYTES % 8.9 % (15.0-51.0); MEAN CORPUSCULAR HEMOGLOBIN 30.7 pg (29.0-33.0); MEAN CORPUSCULAR HGB CONC 34.1 g/dl (32.0-37.0); MEAN PLATELET VOLUME 9.3 fl (7.4-10.4); MONOCYTE # 0.4 10^3/ul (0.3-0.9); NEUTROPHIL # 9.6 10^3/ul (1.6-7.5); PLATELET COUNT 205 10^3/UL (140-440); RED BLOOD COUNT 3.37 10^6/ul (4.20-5.40); RED CELL DISTRIBUTION WIDTH 13.3 % (11.5-14.5); UNCORRECTED WBC 11.2 10^3/ul (4.8-10.8); WHITE BLOOD COUNT 11.2 10^3/ul (4.8-10.8)
[2016-11-30 09:55] LABS: POTASSIUM 3.6 mmol/L (3.5-5.1)
[2016-11-30 09:57] LABS: CONDITION 1
[2016-11-30 09:58] LABS: CREATININE 0.37 mg/dl (0.44-1.00)
[2016-11-30 09:59] LABS: CALCIUM 8.3 mg/dl (8.4-10.2)
--- NOTE | 2016-11-30 14:53 | PDOCDIS ---
Discharge Instructions CONDITION Patient Condition: Good HOME CARE INSTRUCTIONS: Diet Instructions: Regular ACTIVITY: Activity Restrictions: Slowly Increase Activity Rest between Activity Avoid heavy lifting FOLLOW UP/APPOINTMENTS Appointments Follow up with [facility] oncology as out-pt MORALES PEREIRA MD Nov 30, 2016 14:53
[2016-11-30] MEDS ORDERED: CLIN-73 PO (14:54)
[2016-11-30] MEDS ORDERED: LEVO500T72 PO (14:54)
[2016-11-30 20:09] VITALS: BP 107/56; RESP 18
--- NOTE | 2016-11-30 21:21 | DS ---
DATE OF ADMISSION: 11/28/2016 DATE OF DISCHARGE: 11/30/2016 CONSULTANTS: Hoang Hayward MD DISCHARGE DIAGNOSES: 1. Postoperative infection. The patient was treated with Zosyn and vancomycin. The Gram stain of wound showed Staphylococcus aureus sensitive to clindamycin. Belly fluid culture showed Citrobacter freundii, Staphylococcus aureus, streptococcus species sensitive to Cipro and Levaquin. 2. Status post ovarian tumor resection. Cytology is pending. Follow up with [facility] as outpa tient. 3. Hypokalemia, repleted. MEDICATIONS: 1. Clindamycin 300 mg p.o. t.i.d. 2. Levaquin 500 mg p.o. daily. 3. Colace 100 mg p.o. b.i.d. 4. [place] 5/325 one tab p.o. q. 6 hours. 5. Tramadol 50 mg p.o. q. 6 hours. ALLERGIES: NO KNOWN DRUG ALLERGIES. DISPOSITION: Home. FOLLOWUP: Follow up with [facility] as outpatient. LABORATORY: WBC 11.3, hemoglobin 10.3, hematocrit 30.3, platelets 205. Sodium 143, potassium 3.6, chloride 106, bicarbonate 25, BUN 4, creatinine 0.37, glucose 82, calcium 8.3. 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 The patient present ed to [facility] Emergency Room and waited for a couple of hours, and secondary to pain and the ER being very busy, the patient went to [facility] where she was found to have an elevate d WBC of 17. She was treated with IV antibiotics and secondary to insurance purposes, the patient w as transferred to [facility]. [facility] oncologist Dr. Hayward was consulted. CALLY tube was discontinued. The drainage was sent for culture which grew Staphylococcus aureus, Citrobacter freundii and enterococcal species. The patient at the time of admission was started on vancomycin a nd Zosyn. Her WBC has improved from 17.1 to 11.2. The patient has been febrile at the time of the admission. Today patient has been afebrile with tem perature 99. The rest of vitals, pulse of 94, respirations 16, blood pressure 108/55, oxygen satura tion 95%. The patient has been seen and evaluated by [facility] oncologist during this course of [facility]. Regarding the pain, patient was placed on morphine. Also, patient has been placed on antie metic medication Pepcid. At this time, the patient CALLY site drainage has improved significantly. Th ere is no erythema. There is no sign of abscess. As stated above, she is afebrile and at this time , the patient is medically stable to be discharged home after evaluation by the surgeon and will nee d to follow up with [facility] oncologist as outpatient for evaluation and follow the pathology of the ovar ies and uterus which was surgically removed during last hospitalization. CONDITION AT TIME OF DISCHARGE: Stable. The patient has been able to tolerate oral intake without any difficulty. Total amount of time was spent for evaluation of patient and discharge workup 40 minutes. Dictated By: MORALES PEREIRA MD PN/NTS Conf#: [id number] DID#: [id number] CC: ZAKIA GIL MD;*EndCC*
[2016-11-30] MEDS: ACETAMINOPHEN 325 MG TAB PO PRN (22:21)
[2016-11-30] MEDS: ONDANSETRON 4 MG INJ IV PRN (22:24)
[2016-11-30] MEDS: VANCOMYCIN 1.5 GM in SOD CHLORIDE 0.9% 250 ML IVPB SCH (22:27)
[2016-11-30] MEDS ORDERED: SOD CHLORIDE 0.9% 500 ML IV ONE (23:30)
[2016-12-01] MEDS: PIPER-TAZO 3.375 GM IV (PMX) 100 ML IVPB SCH ×4 (00:14→20:37)
[2016-12-01] MEDS: HYDROCODONE/APAP (5/325) TAB PO PRN ×4 (02:11→20:31)
[2016-12-01] MEDS: VANCOMYCIN 1.5 GM in SOD CHLORIDE 0.9% 250 ML IVPB SCH ×2 (06:18→15:23)
[2016-12-01] MEDS: morphine 2 MG INJ IV PRN ×2 (06:54→18:49)
[2016-12-01 08:00] VITALS: BP 114/58; RESP 17
[2016-12-01] MEDS: FAMOTIDINE 20 MG TAB PO SCH ×2 (09:06→20:31)
[2016-12-01 10:01] LABS: BASOPHILS % 0.4 % (0.0-2.0); EOSINOPHILS # 0.1 10^3/ul (0.0-0.5); EOSINOPHILS % 0.6 % (0.0-7.0); HEMATOCRIT 30.7 % (37.0-47.0); HEMOGLOBIN 10.6 g/dl (12.0-16.0); LYMPHOCYTES # 0.9 10^3/ul (0.8-2.9); LYMPHOCYTES % 9.6 % (15.0-51.0); MEAN CORPUSCULAR HEMOGLOBIN 30.7 pg (29.0-33.0); MEAN CORPUSCULAR HGB CONC 34.5 g/dl (32.0-37.0); MEAN CORPUSCULAR VOLUME 88.9 fl (82.0-101.0); MEAN PLATELET VOLUME 8.4 fl (7.4-10.4); MONOCYTE # 0.7 10^3/ul (0.3-0.9); MONOCYTES % 7.2 % (0.0-11.0); NEUTROPHIL # 7.5 10^3/ul (1.6-7.5); NEUTROPHILS % 82.2 % (39.0-77.0); PLATELET COUNT 262 10^3/UL (140-440); RED BLOOD COUNT 3.45 10^6/ul (4.20-5.40); RED CELL DISTRIBUTION WIDTH 13.4 % (11.5-14.5); UNCORRECTED WBC 9.1 10^3/ul (4.8-10.8); WHITE BLOOD COUNT 9.1 10^3/ul (4.8-10.8)
[2016-12-01 10:06] LABS: CONDITION 1
--- NOTE | 2016-12-01 14:12 | CONS ---
DATE OF ADMISSION: 11/28/2016 DATE OF CONSULTATION: 12/01/2016 TYPE OF CONSULTATION: Infectious disease. REASON FOR CONSULTATION: Antibiotic management. 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 She presents now with fever, chills and abdominal pain. She states that after she went home she noticed a lot of pain in her abdomen and the surrounding CALLY site. She had subjective fevers and inability to eat. Initially she went to [facility] and then was tra nsferred back to [facility]. On admission her white count was 17.1, H and H 11.6 and 32.1, platelet count of 219,000. Today her white count is 9.1, BUN and creatinine are 4/0.37. She is on vancomycin and Zosyn. She is also on metronidazole. PAST MEDICAL HISTORY: Operations as outlined. FAMILY HISTORY: Noncontributory. PAST SURGICAL HISTORY: Status post ovarian resection, lymph node resection. SOCIAL HISTORY: She does not smoke, drink or abuse drugs. ALLERGIES: NONE TO PENICILLIN, SULFA OR FOODS. MEDICATIONS: Per chart. REVIEW OF SYSTEMS: Noncontributory. PHYSICAL EXAMINATION: GENERAL: The patient is a chronically ill-appearing female, who is alert, responsive, in no acute d istress. VITAL SIGNS: Stable. She is afebrile. SKIN: Without generalized rash. HEENT: Within normal limits. NECK: Supple. LYMPH NODES: None palpable. CHEST: Decreased breath sounds at the bases. HEART: Without murmur or gallop. ABDOMEN: Soft. Minimal tenderness in the left lower quadrant. No CVA tenderness or rebound. EXTREMITIES: Without cyanosis, clubbing, or edema. RECTAL AND GENITAL EXAM: Deferred. NEUROLOGIC EVALUATION: No focal neurological abnormalities. Her abdominal fluid is growing Citrobacter freundii, Staph aureus and enterococcal species. The [facility] is send her out on clindamycin and Levaquin. The other option would be to send her out on , which would cover the enterococcus as well, and the Levaquin which would cover the Citrobacte r freundii. I will discuss my findings with Dr. Sears. The patient is also positive for C. dif ficile, so she should be sent home on metronidazole as well. This is a complicated problem. I will dictate my findings to Dr. Gibbons and also to Dr. Hayward. Dictated By: ALAN RICHTER MD, JD/RENETTA Conf#: [id number] DID#: [id number]
[2016-12-01] MEDS ORDERED: METR500T PO (14:54)
[2016-12-01] MEDS ORDERED: VANC1.5P12 IV (14:54)
--- NOTE | 2016-12-01 15:02 | DS ---
Date/Time of Note Date/Time of Note DATE: 12/01/16 TIME: 14:57 Discharge Summary Admission/Discharge Info Admit Date/Time Nov 28, 2016 at 05:47 Discharge Date/Time 10/31/17 Final Diagnosis DISCHARGE DIAGNOSES: 1. Postoperative infection. The patient was treated with Zosyn and vancomycin. The Gram stain of wound showed Staphylococcus aureus sensitive to vancomycin. Belly fluid culture showed Citrobacter freundii, Staphylococcus aureus, streptococcus species sensitive to Cipro and Levaquin. 2. Status post ovarian tumor resection. Cytology is pending. Follow up with [facility] oncology as outpatient. 3. Hypokalemia, repleted. 4. C. 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 The patient presented to [facility] Emergency Room and waited for a couple of hours, and secondary to pain and the ER being very busy, the patient went to [facility] where she was found to have an elevated WBC of 17. She was treated with IV antibiotics and secondary to insurance purposes, the patient was transferred to [facility]. [facility] oncologist Dr. Hayward was consulted. CALLY tube was discontinued. The drainage was sent for culture which grew Staphylococcus aureus, Citrobacter freundii and enterococcal species. The patient at the time of admission was started on vancomycin and Zosyn. Her WBC has improved from 17.1 to 9.1. Patient's stool culture was found to be positive for C. difficile toxin and she has been started on Flagyl orally. Infectious disease doctor has been consulted and patient medication were reevaluated. Patient has been set up by home health for IV vancomycin 8 days and also will be discharged on Levaquin and Flagyl. The patient has been febrile at the time of admission. Today patient has been afebrile with temperature 98.8 The rest of vitals, pulse of 94, respirations 16 , blood pressure 108/55, oxygen saturation 95%. The patient has been seen and evaluated by [facility] oncologist during this course of hospitalization. Regarding the pain, patient was placed on morphine. Also, patient has been placed on antiemetic medication Pepcid. At this time, the patient CALLY site drainage has improved significantly. There is no erythema. There is no sign of abscess. As stated above, she is afebrile and at this time, the patient is medically stable to be discharged home after evaluation by the surgeon and will need to follow up with [facility] oncologist as outpatient for evaluation and follow the pathology of the ovaries and uterus which was surgically removed during last hospitalization. Plan: Follow up with [facility] oncologist as outpatient for reevaluation and results of pathology In case of having abdominal pain, nausea, vomiting, fever return to emergency room immediately Home Meds Active Scripts Vancomycin HCl in Dextrose 5 % (Vancomycin 1.5 Gram/250 ml-D5w) 1.5 Gm/250 Ml Plast..bag, 1.5 GM IV DAILY, #8 Prov:MORALES PEREIRA MD 12/01/16 Metronidazole* (Flagyl*) 500 Mg Tablet, 500 MG PO TID, #45 TAB Prov:MORALES PEREIRA MD 12/01/16 Levofloxacin* (Levaquin*) 500 Mg Tablet, 500 MG PO DAILY, #7 TAB Prov:MORALES PEREIRA MD 11/30/16 Tramadol Hcl* (Ultram*) 50 Mg Tablet, 50 MG PO Q6H Y for PAIN for 10 Days, TAB Prov:ZAKIA GIL MD 11/26/16 Docusate Sodium* (Colace*) 100 Mg Capsule, 100 MG PO BID, #60 CAP Prov:ZAKIA GIL MD 11/26/16 Hydrocodone Bit-Acetaminophen (Hydrocodone Bit-APAP) 5-325MG Tablet, 1 TAB PO Q6H Y for MODERATE PAIN LEVEL 4-6 for 10 Days, #40 TAB Prov:ZAKIA GIL MD 11/26/16 Pending Labs Laboratory Tests Test 12/01/16 09:22 Basophils # 0.010^3/ul (0.0-0.1) Basophils % 0.4% (0.0-2.0) Eosinophils # 0.110^3/ul (0.0-0.5) Eosinophils % 0.6% (0.0-7.0) Hematocrit 30.7% (37.0-47.0) Hemoglobin 10.6g/dl (12.0-16.0) Lymphocytes # 0.910^3/ul (0.8-2.9) Lymphocytes % 9.6% (15.0-51.0) Mean Corpuscular Hemoglobin 30.7pg (29.0-33.0) Mean Corpuscular Hemoglobin Concent 34.5g/dl (32.0-37.0) Mean Corpuscular Volume 88.9fl (82.0-101.0) Mean Platelet Volume 8.4fl (7.4-10.4) Monocytes # 0.710^3/ul (0.3-0.9) Monocytes % 7.2% (0.0-11.0) Neutrophils # 7.510^3/ul (1.6-7.5) Neutrophils % 82.2% (39.0-77.0) Nucleated Red Blood Cells # 0.010^3/ul (0.0-0.0) Nucleated Red Blood Cells % 0.0/100WBC (0.0-0.0) Platelet Count 80401^3/UL (140-440) Red Blood Count 3.4510^6/ul (4.20-5.40) Red Cell Distribution Width 13.4% (11.5-14.5) White Blood Count 9.110^3/ul (4.8-10.8) Microbiology Date/Time Source Procedure Growth Status 11/30/16 18:51 Feces Clostridium difficile Toxin Assay - Final Complete 11/30/16 20:45 Clean Catch Urine Urine Culture - Preliminary NO GROWTH AFTER 24 HOURS Resulted MORALES PEREIRA MD Dec 01, 2016 15:01
[2016-12-01] MEDS: metroNIDAZOLE 500 MG TAB PO SCH ×2 (15:21→21:54)
[2016-12-01] MEDS ORDERED: IOHEXOL 300MG/ML 150 ML BTL ONE (16:34)
[2016-12-01] MEDS ORDERED: SOD CHLORIDE 0.9% 100 ML ONE (16:34)
[2016-12-01 20:13] VITALS: BP 103/61; RESP 18
[2016-12-01] MEDS: ONDANSETRON 4 MG INJ IV PRN (20:31)
--- NOTE | 2016-12-01 20:51 | RADRPT ---
PROCEDURE: CT abdomen and pelvis with IV contrast. CLINICAL INDICATION: Abdomen pain. TECHNIQUE: CT scan of the abdomen and pelvis was performed on a [address] scanner. The patient is scanned following the uncomplicated IV administration of 100 cc Omnipaque-300. Coronal and sagit lo reformatted images were obtained from the axial source images. Images were reviewed on a high-r [employer] AMD PACS workstation. Radiation dose: Total CTDIvol: 8.87 mGy. Total DLP: 510 mGy-cm. COMPARISON: CT abdomen pelvis, 11/10/2016. FINDINGS: CT abdomen: The lung bases are clear. The heart is not enlarged without pericardial thickening or effusion.. The liver is normal in size and density without focal mass or intrahepatic biliary dilatation. The spleen is normal in size and homogeneous in density. The stomach is partially collapsed but is jacky sly unremarkable. The pancreas as visualized is normal. The gallbladder is normal and there is no evidence of biliary dilatation. The adrenal glands are symmetrical and normal. The both kidneys are diffusely enlarged with poor ne phrogram. There is minimal hydronephrosis of the right kidney. No renal calculus or mass lesion is seen.. The aorta is normal in caliber. There is no retroperitoneal lymphadenopathy. The castro hepatis reg ion is clear. There is mild postop ileus. CT pelvis: There is status post hysterectomy. There is status post Sheryl's procedure. There are minimal po stop mesenteric stranding. The small bowel loops situated within the pelvis are unremarkable. The pelvic sidewalls and inguinal regions are clear. No mass, lymphadenopathy or free fluid is seen. N o acute inflammation seen. The urinary bladder is normal. The surrounding osseous structures are unremarkable. No osteolytic or osteoblastic lesion is detect ed. IMPRESSION: 1. Diffuse enlargement of the both kidneys with poor nephrogram. Differential includes acute renal failure and pyelonephritis. Recommend clinical correlation. 2. Minimal hydronephrosis of the right kidney. The underlying cause is not known. 3. Status post hysterectomy. Status post Sheryl's procedure. 4. Minimal postop mesenteric stranding in the pelvis. 5. Mild postop ileus. 6. Interval resolution of ascitic fluid. RPTAT: GG .Jona Khan MD, MD Date Time Electronically viewed and signed by .Jona Khan MD, MD on 12/01/2016 20:49 .Y/
--- NOTE | 2016-12-01 22:05 | PN ---
Date/Time of Note Date/Time of Note DATE: 12/01/16 TIME: 22:01 Assessment/Plan VTE Prophylaxis VTE Prophylaxis Intervention: LMWH Lines/Catheters IV Catheter Type (from Nrsg): Saline Lock Assessment/Plan Chief Complaint/Hosp Course post op pain Problems: Assessment/Plan A- improved and would suggest drain cultues to to secondary and of questionable significance; issue appears to be C. diff and is improving P- carefully reiterated significance of "borderline " pathology and waiting for review. C. diff explained although multiple approaches currently available. Subjective 24 Hr Interval Summary Free Text/Dictation S- feels less pain and overall improved O- rep-clear cvs-nsr abd- soft, minimal llq tender, no cvat and no rebound ext- no edema or pain A- improved and would suggest drain cultues to to secondary and of questionable significance; issue appears to be C. diff and is improving P- carefully reiterated significance of "borderline " pathology and waiting for review. C. diff explained although multiple approaches currently available. Exam/Review of Systems Vital Signs Vitals Vital Signs Date Time Temp Pulse Resp B/P Pulse Ox O2 Delivery O2 Flow Rate FiO2 12/01/16 20:13 99.2 92 18 103/61 99 11/28/16 21:45 Room Air Intake and Output 11/30/16 11/30/16 12/01/16 15:00 23:00 07:00 Intake Total 840 ml 930 ml Balance 840 ml 930 ml Results Result Diagram: 12/01/16 0922 11/30/16 0855 Results 24 hrs Laboratory Tests Test 12/01/16 09:22 Basophils # 0.0 Basophils % 0.4 Eosinophils # 0.1 Eosinophils % 0.6 Hematocrit 30.7 L Hemoglobin 10.6 L Lymphocytes # 0.9 Lymphocytes % 9.6 L Mean Corpuscular Hemoglobin 30.7 Mean Corpuscular Hemoglobin Concent 34.5 Mean Corpuscular Volume 88.9 Mean Platelet Volume 8.4 Monocytes # 0.7 Monocytes % 7.2 Neutrophils # 7.5 Neutrophils % 82.2 H Nucleated Red Blood Cells # 0.0 Nucleated Red Blood Cells % 0.0 Platelet Count 262 # Red Blood Count 3.45 L Red Cell Distribution Width 13.4 White Blood Count 9.1 Medications Medications Current Medications Ondansetron HCl (Zofran Inj) 4 mg Q6H PRN IV NAUSEA AND/OR VOMITING Last administered on 12/01/16 20:31; Admin Dose 4 MG; Start 11/28/16 at 06:30 Acetaminophen (Tylenol Tab) 650 mg Q6H PRN PO PAIN LEVEL 1-3 OR FEVER Last administered on 11/30/16 22:21; Admin Dose 650 MG; Start 11/28/16 at 06:30 Docusate Sodium (Colace) 100 mg Q12H PRN PO CONSTIPATION Last administered on 18:32; Admin Dose 100 MG; Start 11/28/16 at 06:30 Famotidine 20 mg 20 mg Q12 PO Last administered on 12/01/16 20:31; Admin Dose 20 MG; Start 11/28/16 at 09:00 Piperacillin Sod/ Tazobactam Sod (Zosyn 3.375gm/ 100 ml (Pmx)) 100 ml @ 200 mls /hr Q6 IVPB Last administered on 12/01/16 20:37; Admin Dose 200 MLS/HR; Start 11/28/16 at 12:00 Acetaminophen/ Hydrocodone Bitart ([place] (5/325)) 1 tab Q4H PRN PO MODERATE PAIN LEVEL 4-6 Last administered on 12/01/16 20:31; Admin Dose 1 TAB; Start 09/04 at 10:08 Morphine Sulfate (morphine) 2 mg Q3H PRN IV SEVERE PAIN LEVEL 7-10 Last administered on 12/01/16 18:49; Admin Dose 2 MG; Start 11/28/16 at 10:08 Loperamide HCl 2 mg 2 mg TID PRN PO DIARRHEA Last administered on 11/29/16 23: 35; Admin Dose 2 MG; Start 11/29/16 at 23:30 Vancomycin HCl/ Sodium Chloride (Vancocin/NS) 250 ml @ 83.333 mls/ hr Q8H IVPB Last administered on 12/01/16 15:23; Admin Dose 83.333 MLS/HR; Start at 23:00 Metronidazole (Flagyl) 500 mg Q8 PO Last administered on 12/01/16 21:54; Admin Dose 500 MG; Start 12/01/16 at 14:00 Miscellaneous Information (*Rx Drug Level Order Reminder*) 1 ONCE ONCE XX ; Start 12/01/16 at 22:00; Stop 12/01/16 at 22:01 MATT BARON MD Dec 01, 2016 22:05
[2016-12-02] MEDS: PIPER-TAZO 3.375 GM IV (PMX) 100 ML IVPB SCH ×4 (01:22→18:00)
[2016-12-02] MEDS: HYDROCODONE/APAP (5/325) TAB PO PRN ×3 (03:30→16:47)
[2016-12-02] MEDS: ONDANSETRON 4 MG INJ IV PRN ×3 (03:30→17:52)
[2016-12-02] MEDS: metroNIDAZOLE 500 MG TAB PO SCH ×2 (05:44→14:47)
[2016-12-02 06:53] LABS: CREATININE 0.94 mg/dl (0.44-1.00)
[2016-12-02 07:27] VITALS: BP 116/59; RESP 16
[2016-12-02] MEDS: FAMOTIDINE 20 MG TAB PO SCH (08:59)
[2016-12-02] MEDS ORDERED: ONDA4TAB8 PO (09:26)
--- NOTE | 2016-12-02 09:31 | PN ---
Date/Time of Note Date/Time of Note DATE: 12/02/16 TIME: 09:28 Assessment/Plan VTE Prophylaxis VTE Prophylaxis Intervention: SCD's Lines/Catheters IV [facility]from [facility] Saline Lock Urinary Cath still in place: No Assessment/Plan Chief Complaint/Hosp Course DISCHARGE DIAGNOSES: 1. Postoperative infection. The patient was treated with Zosyn and vancomycin. The Gram stain of wound showed Staphylococcus aureus sensitive to vancomycin. Belly fluid culture showed Citrobacter freundii, Staphylococcus aureus, streptococcus species sensitive to Cipro and Levaquin. 2. Status post ovarian tumor resection. Cytology is pending. Follow up with [facility] as outpatient. 3. Hypokalemia, repleted. 4. C. difficile toxin, on Flagyl Patient discharge was held yesterday on 12/01/2016 secondary patient had fever. Patient has been afebrile this morning, she has been able to tolerate her oral intake without any difficulty. CT of the abdomen and pelvis was obtained. Patient has been given instruction to follow-up with [facility] oncologist as outpatient for following up the result of the pathology. Condition at the time of discharge stable Home health has been set up with case planner for IV antibiotics/vancomycin 8 days Importance of compliance with oral antibiotics has been discussed with the patient Problems: Subjective 24 Hr Interval Summary Free Text/Dictation Patient denies of any chest pain or shortness of breath No diarrhea, tolerating oral intake Minimal abdominal discomfort No drainage from the CALLY site Exam/Review of Systems Vital Signs Vitals Vital Signs Date Time Temp Pulse Resp B/P Pulse Ox O2 Delivery O2 Flow Rate FiO2 12/02/16 07:27 98.0 72 16 116/59 96 11/28/16 21:45 Room Air Intake and Output 12/01/16 12/01/16 12/02/16 15:00 23:00 07:00 Intake Total 250 ml 350 ml 1100 ml Balance 250 ml 350 ml 1100 ml Exam General: The patient is well-developed, Not in acute distress. HEENT: Atraumatic, normocephalic. The pupils are equal and round . Neck: Supple with full range of motion. Chest: Normal expansion of the thorax during inspiration Lungs: Clear to auscultation bilaterally Heart: Normal S1-S2, Regular rhythm and rate. Abdomen: Soft , nontender, nondistended , bowel sounds are present. Surgical site is dry and clean, no exudate or pus from the CALLY site Extremities: Normal to inspection, no edema no cyanosis Neurologic: Normal mental status,The patient is awake, alert and oriented . Results Result Diagram: 12/01/16 0922 12/02/16 0500 Results 24 hrs Laboratory Tests Test 12/01/16 22:05 12/02/16 05:00 Vancomycin Level Trough 42.4 *H Blood Urea Nitrogen 6 L Creatinine 0.94 Medications Medications Current Medications Ondansetron HCl (Zofran Inj) 4 mg Q6H PRN IV NAUSEA AND/OR VOMITING Last administered on 12/02/16 08:59; Admin Dose 4 MG; Start 11/28/16 at 06:30 Acetaminophen (Tylenol Tab) 650 mg Q6H PRN PO PAIN LEVEL 1-3 OR FEVER Last administered on 11/30/16 22:21; Admin Dose 650 MG; Start 11/28/16 at 06:30 Docusate Sodium (Colace) 100 mg Q12H PRN PO CONSTIPATION Last administered on 18:32; Admin Dose 100 MG; Start 11/28/16 at 06:30 Famotidine 20 mg 20 mg Q12 PO Last administered on 12/02/16 08:59; Admin Dose 20 MG; Start 11/28/16 at 09:00 Piperacillin Sod/ Tazobactam Sod (Zosyn 3.375gm/ 100 ml (Pmx)) 100 ml @ 200 mls /hr Q6 IVPB Last administered on 12/02/16 05:44; Admin Dose 200 MLS/HR; Start 11/28/16 at 12:00 Acetaminophen/ Hydrocodone Bitart ([place] (5/325)) 1 tab Q4H PRN PO MODERATE PAIN LEVEL 4-6 Last administered on 12/02/16 03:30; Admin Dose 1 TAB; Start 09/04 at 10:08 Morphine Sulfate (morphine) 2 mg Q3H PRN IV SEVERE PAIN LEVEL 7-10 Last administered on 12/01/16 18:49; Admin Dose 2 MG; Start 11/28/16 at 10:08 Loperamide HCl (Imodium Cap) 2 mg TID PRN PO DIARRHEA Last administered on 11/29 23:35; Admin Dose 2 MG; Start 11/29/16 at 23:30 Metronidazole 500 mg 500 mg Q8 PO Last administered on 12/02/16t 05:44; Admin Dose 500 MG; Start 12/01/16 at 14:00 Vancomycin HCl/ Sodium Chloride (Vancocin/NS) 150 ml @ 75 mls/hr Q12H IVPB ; Start 12/02/16 at 17:00 MORALES PEREIRA MD Dec 02, 2016 09:31
[2016-12-02] MEDS ORDERED: VANCOMYCIN 750 MG in SOD CHLORIDE 0.9% 150 ML IVPB SCH (17:00)
--- NOTE | 2016-12-02 19:05 | PN ---
Date/Time of Note Date/Time of Note DATE: 12/02/16 TIME: 19:03 Assessment/Plan VTE Prophylaxis VTE Prophylaxis Intervention: SCD's Lines/Catheters IV Catheter Type (from Nrsg): Peripheral IV Urinary Cath still in place: No Assessment/Plan Chief Complaint/Hosp Course post op pain Problems: Assessment/Plan per IM Subjective 24 Hr Interval Summary Free Text/Dictation S- feels less pain and overall improved. No diarrhea O- rep-clear cvs-nsr abd- soft, minimal llq tender, no cvat and no rebound ext- no edema or pain A- improved P- concur with IM Exam/Review of Systems Vital Signs Vitals Vital Signs Date Time Temp Pulse Resp B/P Pulse Ox O2 Delivery O2 Flow Rate FiO2 12/02/16 07:27 98.0 72 16 116/59 96 11/28/16 21:45 Room Air Intake and Output 12/01/16 12/01/16 12/02/16 15:00 23:00 07:00 Intake Total 250 ml 350 ml 1100 ml Balance 250 ml 350 ml 1100 ml Results Result Diagram: 12/01/16 0922 12/02/16 0500 Results 24 hrs Laboratory Tests Test 12/01/16 22:05 12/02/16 05:00 Vancomycin Level Trough 42.4 *H Blood Urea Nitrogen 6 L Creatinine 0.94 Medications Medications Current Medications Ondansetron HCl (Zofran Inj) 4 mg Q6H PRN IV NAUSEA AND/OR VOMITING Last administered on 12/02/16 17:52; Admin Dose 4 MG; Start 11/28/16 at 06:30 Acetaminophen (Tylenol Tab) 650 mg Q6H PRN PO PAIN LEVEL 1-3 OR FEVER Last administered on 11/30/16 22:21; Admin Dose 650 MG; Start 11/28/16 at 06:30 Docusate Sodium (Colace) 100 mg Q12H PRN PO CONSTIPATION Last administered on 18:32; Admin Dose 100 MG; Start 11/28/16 at 06:30 Famotidine 20 mg 20 mg Q12 PO Last administered on 12/02/16 08:59; Admin Dose 20 MG; Start 11/28/16 at 09:00 Piperacillin Sod/ Tazobactam Sod (Zosyn 3.375gm/ 100 ml (Pmx)) 100 ml @ 200 mls /hr Q6 IVPB Last administered on 12/02/16 12:47; Admin Dose 200 MLS/HR; Start 11/28/16 at 12:00 Acetaminophen/ Hydrocodone Bitart ([place] (5/325)) 1 tab Q4H PRN PO MODERATE PAIN LEVEL 4-6 Last administered on 12/02/16 16:47; Admin Dose 1 TAB; Start 09/04 at 10:08 Morphine Sulfate (morphine) 2 mg Q3H PRN IV SEVERE PAIN LEVEL 7-10 Last administered on 12/01/16 18:49; Admin Dose 2 MG; Start 11/28/16 at 10:08 Loperamide HCl (Imodium Cap) 2 mg TID PRN PO DIARRHEA Last administered on 11/29 23:35; Admin Dose 2 MG; Start 11/29/16 at 23:30 Metronidazole 500 mg 500 mg Q8 PO Last administered on 12/02/16 14:47; Admin Dose 500 MG; Start 12/01/16 at 14:00 Vancomycin HCl/ Sodium Chloride (Vancocin/NS) 150 ml @ 75 mls/hr Q12H IVPB Last administered on 12/02/16 14:47; Admin Dose 75 MLS/HR; Start 12/02/16 at 17 :00 MATT BARON MD Dec 02, 2016 19:05
== END 2016-12-02 19:25 | disposition home health service (06) | DRG 863 ==
LOC: MS2 05:47
PROVIDERS: ADMIT Student in an Organized Health Care Education/Training Program; ATTEND Student in an Organized Health Care Education/Training Program
DX: T81.4XXA Infection following a procedure, initial encounter (principal); B95.61 Methicillin susceptible Staphylococcus aureus infection as the cause of diseases classified elsewhere; B95.2 Enterococcus as the cause of diseases classified elsewhere; Z16.23 Resistance to quinolones and fluoroquinolones; Z16.11 Resistance to penicillins; Y83.8 Other surgical procedures as the cause of abnormal reaction of the patient, or of later complication, without mention of misadventure at the time of the procedure; Y92.013 Bedroom of single-family (private) house as the place of occurrence of the external cause; E87.6 Hypokalemia; G89.18 Other acute postprocedural pain; B96.89 Other specified bacterial agents as the cause of diseases classified elsewhere
CPT/HCPCS: 74177; 80048; 80202; 82565; 84520; 85025; 87070; 87075; 87081; 87086; J1885; J2270; J2405; J2543; J3370; J7030; J7040; J7050; Q9967

== ENCOUNTER 2016-12-12 14:13 | Outpatient (CLI) | payer OTHER ==
[~2016-12-12] VITALS: Ht 144.8 cm; Wt 55.9 kg
[~2016-12-12 14:13] MED LIST changes: +LEVO500T72 PO; +METR500T PO; +ONDA4TAB8 PO; +VANC1.5P12 IV
--- NOTE | 2016-12-12 14:29 | PN ---
Date/Time of Note Date/Time of Note DATE: 12/12/16 TIME: 14:29 Outpatient Progress Note Chief Complaint Abdominal pain/ovarian tumor/colitis/hypokalemia HPI Abdominal pain/patient has abdominal pain, mild to moderate, generalized, patient had ovarian tumor resection, and postop infection, patient was recently hospitalized, no fever or chill, no redness around operative sites, Ovarian tumor/patient has ovarian tumor, patient had resection, patient supposed to follow with oncologist, Colitis/patient has C. difficile colitis, patient was on Flagyl, patient does not have any diarrhea, no fever or chill, no mucus or blood in the stool, Hypokalemia/patient has hypokalemia, patient has not taken percussion tablet, the wart is still intact, Review of Systems Const: No Fever, no chills, no Wt. loss, no Fatigue, normal appetite, no diaphoresis. Eyes: No pain, no discharge, no redness, no visual change, no foreign body. ENT: No pain, no bleeding, no congestion, no sore throat, no dysphagia, no discharge or rhinitis. Lymph: No adenopathy, no tender nodes, no lymphedema. Resp: No SOB, no cough, no sputum, no wheezing, no chest pain. CV: No chest pain, no palpitaions, no BAEZA, no PND, no edema. GI: Normal appetite, abdominal pain, generalized, [id number], no nausea, no vomiting, no diarrhea, no blood, no constipation., And abdominal distention, : No frequency, no urgency, no dysuria, no hematuria, no flank pain, no discharge, no bleeding. Musc: No bone/joint pain, no back pain, no neck pain, no knee pain, no restricted ROM. Skin: No rash, no skin lesions, no erythema, no laceration, no bruising, no pruritus. No redness operative scar,, Neuro: No JAMESON, no dizziness, no syncope, no seizure, no focal-weakness. Endo: No polyuria, no polydypsia, no dry-skin, no temp-intolerance. Psych: No hallucinations, no depression, no anxiety, no suicidal ideation. Ext: No edema, no pain, no ulcer, no weakness. Physical Exam Vital Signs Date Time Temp Pulse Resp B/P Pulse Ox O2 Delivery O2 Flow Rate FiO2 12/12/16 14:33 98.0 85 18 109/51 97 Room Air General Appearance: A 31 year-old female who appears well-developed, well- nourished, in no acute distress. HEENT: Head normocephalic, atraumatic. Pupils equal, round, reactive to light and accommodate. Sclerae are no jaundice. Nasal turbinates pink without erythema or nasal discharge. Mucous membranes pink and moist without lesions. Oropharynx clear without any exudate or discharge. NECK: Supple. Trachea midline, No thyromegaly, No cervical lymphadenopathy, No mass, No carotid bruits, No JVD, Carotid pulses 2+ bilaterally. PULMONARY: Clear to auscultaion bilaterally, No retractions, Chest expansion symmetric bilaterally, no rales, no ronchi, no dulness on percussion. CARDIAC: Normal SI and S2, Regular rate and rythm, no murmur, gallop, or rub. GASTROINTESTINAL: Abdomen is soft, mild to moderate generalized tenderness,, Non Rigid, No distention, Positive bowel sounds x4 quadrants, Liver normal. Operative scar healed, no redness, no bleeding, SKIN: Warm, dry, no rash, no bruise, no echmosis. EXTREMITIES: Bilateral lower extremities normal, no edema, no phlabitus, pulse palpable, no contracture. MUSCULOSKELETAL: Spine Normal, Non-tender, Normal range of motion, No swelling, no deformity, no clubbing, or cyanosis, the patient has no edema to bilateral lower extremities, dorsalis pedis pulses palpable bilaterally. NEUROLOGIC: The patient is awake, alert, oriented, responding to yes/no questions appropriately, moving all extremities, cranial nerve intact, normal strenght, normal power, normal coordination, normal gait. Allergies Coded Allergies: No Known Allergy (Unverified , 11/10/16) PMH Oriented for resection/postop infection/colitis/hypokalemia Social Hx No smoking or drinking or drugs, Family Hx Noncontributory Patient History: Endocrine and metabolic disease 32 MOTHER Ovarian cyst 32 MOTHER Assessment/Plan Impression Abdominal pain/ovarian tumor status post resection,/colitis improving/ hypokalemia Plan Continue all medications supported care, patient explained to continue to take all medication including percussion, Continue pain medication, Patient does not have any diarrhea, patient has finished Flagyl, will monitor closely for other sign and symptom of colitis, CBC and CMP, encouraged to see primary care physician's in couple of weeks, Medications Home Meds Active Scripts Ondansetron Hcl* (Zofran*) 4 Mg Tablet, 4 MG PO Q6H Y for NAUSEA AND OR VOMITING , #20 TAB Prov:MORALES PEREIRA MD 12/02/16 Metronidazole* (Flagyl*) 500 Mg Tablet, 500 MG PO TID, #45 TAB Prov:MORALES PEREIRA MD 12/01/16 Levofloxacin* (Levaquin*) 500 Mg Tablet, 500 MG PO DAILY, #7 TAB Prov:MORALES PEREIRA MD 11/30/16 Tramadol Hcl* (Ultram*) 50 Mg Tablet, 50 MG PO Q6H Y for PAIN for 10 Days, TAB Prov:ZAKIA GIL MD 11/26/16 Docusate Sodium* (Colace*) 100 Mg Capsule, 100 MG PO BID, #60 CAP Prov:ZAKIA GIL MD 11/26/16 Hydrocodone Bit-Acetaminophen (Hydrocodone Bit-APAP) 5-325MG Tablet, 1 TAB PO Q6H Y for MODERATE PAIN LEVEL 4-6 for 10 Days, #40 TAB Prov:ZAKIA GIL MD 11/26/16 Discontinued Scripts Vancomycin HCl in Dextrose 5 % (Vancomycin 1.5 Gram/250 ml-D5w) 1.5 Gm/250 Ml Plast..bag, 1.5 GM IV DAILY, #8 Prov:MORALES PEREIRA MD 12/01/16 KOLBY KISER MD Dec 12, 2016 14:29
[2016-12-12 14:33] VITALS: BP 109/51; PULSE 85; RESP 18; Ht 144.8 cm; Wt 55.9 kg
== END 2016-12-12 16:18 | disposition home or self-care (01) ==
LOC: DCC 14:13
PROVIDERS: ATTEND Internal Medicine
DX: R10.9 Unspecified abdominal pain (principal); K52.9 Noninfective gastroenteritis and colitis, unspecified; E87.6 Hypokalemia
CPT/HCPCS: G0463

== ENCOUNTER 2016-12-26 11:26 | Outpatient (CLI) | payer BC ==
[~2016-12-26] VITALS: Ht 144.8 cm; Wt 52.7 kg
[~2016-12-26 11:26] MED LIST changes: -VANC1.5P12 IV
[2016-12-26 11:38] VITALS: BP 131/62; PULSE 82; RESP 16; Ht 144.8 cm; Wt 52.7 kg
--- NOTE | 2016-12-26 12:06 | PN ---
Date/Time of Note Date/Time of Note DATE: 12/26/16 TIME: 12:06 Outpatient Progress Note Chief Complaint Abdominal pain/ovarian tumor/colitis HPI Abdominal pain/patient still has mild abdominal discomfort, no fevers chill, no abdominal distention, no nausea or vomiting, patient has not been taking Ultram or Narco, Ovarian tumor/patient has hysterectomy, no fever or chill, Colitis/patient has no nausea vomiting abdominal distention or diarrhea, no mucus, patient doing extremely well, Review of Systems Const: No Fever, no chills, no Wt. loss, no Fatigue, normal appetite, no diaphoresis. Eyes: No pain, no discharge, no redness, no visual change, no foreign body. ENT: No pain, no bleeding, no congestion, no sore throat, no dysphagia, no discharge or rhinitis. Lymph: No adenopathy, no tender nodes, no lymphedema. Resp: No SOB, no cough, no sputum, no wheezing, no chest pain. CV: No chest pain, no palpitaions, no BAEZA, no PND, no edema. GI: Normal appetite, mild abdominal pain, no nausea, no vomiting, no diarrhea, no blood, no constipation. : No frequency, no urgency, no dysuria, no hematuria, no flank pain, no discharge, no bleeding. Musc: No bone/joint pain, no back pain, no neck pain, no knee pain, no restricted ROM. Skin: No rash, no skin lesions, no erythema, no laceration, no bruising, no pruritus. Neuro: No JAMESON, no dizziness, no syncope, no seizure, no focal-weakness. Endo: No polyuria, no polydypsia, no dry-skin, no temp-intolerance. Psych: No hallucinations, no depression, no anxiety, no suicidal ideation. Ext: No edema, no pain, no ulcer, no weakness. Physical Exam Vital Signs Date Time Temp Pulse Resp B/P Pulse Ox O2 Delivery O2 Flow Rate FiO2 12/26/16 11:38 98.1 82 16 131/62 96 General Appearance: A 31 year-old female who appears well-developed, well- nourished, in no acute distress. HEENT: Head normocephalic, atraumatic. Pupils equal, round, reactive to light and accommodate. Sclerae are no jaundice. Nasal turbinates pink without erythema or nasal discharge. Mucous membranes pink and moist without lesions. Oropharynx clear without any exudate or discharge. NECK: Supple. Trachea midline, No thyromegaly, No cervical lymphadenopathy, No mass, No carotid bruits, No JVD, Carotid pulses 2+ bilaterally. PULMONARY: Clear to auscultaion bilaterally, No retractions, Chest expansion symmetric bilaterally, no rales, no ronchi, no dulness on percussion. CARDIAC: Normal SI and S2, Regular rate and rythm, no murmur, gallop, or rub. GASTROINTESTINAL: Abdomen is soft, minimal abdominal discomfort comfort, scar of previous surgery,, Non Rigid, No distention, Positive bowel sounds x4 quadrants, Liver normal. SKIN: Warm, dry, no rash, no bruise, no echmosis. EXTREMITIES: Bilateral lower extremities normal, no edema, no phlabitus, pulse palpable, no contracture. MUSCULOSKELETAL: Spine Normal, Non-tender, Normal range of motion, No swelling, no deformity, no clubbing, or cyanosis, the patient has no edema to bilateral lower extremities, dorsalis pedis pulses palpable bilaterally. NEUROLOGIC: The patient is awake, alert, oriented, responding to yes/no questions appropriately, moving all extremities, cranial nerve intact, normal strenght, normal power, normal coordination, normal gait. Allergies Coded Allergies: No Known Allergy (Unverified , 11/10/16) PMH No change Social Hx No change Family Hx No change Patient History: Endocrine and metabolic disease 32 MOTHER Ovarian cyst 32 MOTHER Assessment/Plan Impression Abdominal pain improving/ovarian tumor/status post surgery/colitis improved Plan Patient has minimal abdominal discomfort, patient has not been taking any pain medication, patient advised to take half a Narco or Advil or Tylenol, on when necessary basis, no fever or chill, will monitor for signs and symptoms of infection, No vomiting or diarrhea, and abdominal cramps, no mucus, patient colitis improved significantly, patient doing extremely well, CBC CMP results noted, and discussed with the patient, Patient encouraged to follow with the primary care physician, Medications Home Meds Active Scripts Ondansetron Hcl* (Zofran*) 4 Mg Tablet, 4 MG PO Q6H Y for NAUSEA AND OR VOMITING , #20 TAB Prov:MORALES PEREIRA MD 12/02/16 Tramadol Hcl* (Ultram*) 50 Mg Tablet, 50 MG PO Q6H Y for PAIN for 10 Days, TAB Prov:ZAKIA GIL MD 11/26/16 Docusate Sodium* (Colace*) 100 Mg Capsule, 100 MG PO BID, #60 CAP Prov:ZAKIA GIL MD 11/26/16 Discontinued Scripts Metronidazole* (Flagyl*) 500 Mg Tablet, 500 MG PO TID, #45 TAB Prov:MORALES PEREIRA MD 12/01/16 Levofloxacin* (Levaquin*) 500 Mg Tablet, 500 MG PO DAILY, #7 TAB Prov:MORALES PEREIRA MD 11/30/16 Hydrocodone Bit-Acetaminophen (Hydrocodone Bit-APAP) 5-325MG Tablet, 1 TAB PO Q6H Y for MODERATE PAIN LEVEL 4-6 for 10 Days, #40 TAB Prov:ZAKIA GIL MD 11/26/16 KOLBY KISER MD Dec 26, 2016 12:06
== END 2016-12-26 16:45 | disposition home or self-care (01) ==
LOC: DCC 11:26
PROVIDERS: ATTEND Internal Medicine
DX: R10.9 Unspecified abdominal pain (principal); D39.10 Neoplasm of uncertain behavior of unspecified ovary; K52.9 Noninfective gastroenteritis and colitis, unspecified
CPT/HCPCS: G0463